=== PATIENT | female | born 1930 | race Caucasian/White ===

== ENCOUNTER 2016-10-27 08:38 | Outpatient (CLI) | payer MEDICARE, OTHER ==
--- NOTE | 2016-10-27 14:19 | DEXA Report ---
DEXA SCAN: 10/27/2016 CLINICAL INDICATION: Postmenopausal. TECHNIQUE: Dual energy x-ray absorptiometry (DXA) was performed on a Lumidigm system. Regions measured are the AP spine, femoral neck, and, if needed, forearm. COMPARISON: None. In accordance with the International Society for Clinical Densitometry (ISCD) guidelines, data from previous exams may be reanalyzed using current recommendations and techniques. This is done to allow a more accurate basis for comparison with the current study. FINDINGS: The data for the lumbar spine is as follows: REGION BMD (g/cm/cm) T-SCORE Z-SCORE L1 1.250 1.0 3.4 L2 1.436 2.0 4.4 L3 1.412 1.8 4.2 L4 1.405 1.7 4.1 TOTAL 1.381 1.7 4.1 NOTE: All evaluable vertebrae are used for classification. The data for the hip is as follows: REGION BMD (g/cm/cm) T-SCORE Z-SCORE Neck 0.719 -2.3 0.5 TOTAL 0.833 -1.4 1.3 NOTE: The femoral neck or total proximal femur, whichever is lowest, is used for classification. * Denotes significant change at the 95% confidence level. Denotes dissimilar scan types or analysis methods. IMPRESSION: THE WHO CLASSIFICATION BASED ON THE INTERNATIONAL REFERENCE STANDARD IS OSTEOPENIA. THE FRACTURE RISK IS INCREASED. RECOMMENDATION: Patients with diagnosis of osteoporosis or osteopenia should have regular bone mineral density assessment. For those eligible for Medicare, routine testing is allowed once every 2 years. Testing frequency can be increased for patients who have rapidly progressing disease or for those who are receiving medical therapy to restore bone mass. COMMENT: World Health Organization (WHO) definitions for osteoporosis and osteopenia: NORMAL BMD: T-score at -1.0 or higher, fracture risk is low. OSTEOPENIA BMD: T-score between -1.0 and -2.5, fracture risk is increased. OSTEOPOROSIS BMD: T-score at -2.5 or lower, fracture risk high. National Osteoporosis Foundation recommends: 1. Obtain adequate dietary calcium (at least 1200 mg per day) and vitamin D (400 -800 international units per day). 2. Participate, as appropriate, in regular weightbearing and muscle- strengthening exercise. 3. Avoid tobacco use and reduce alcohol and caffeine intake. 4. For more detailed information see the website at www.NOF.org. MTDD
== END 2016-10-27 08:39 | disposition home or self-care (01) ==
LOC: DI 08:38
PROVIDERS: ATTEND Internal Medicine
DX: M85.88 Other specified disorders of bone density and structure, other site (principal)
CPT/HCPCS: 77080

== ENCOUNTER 2016-10-27 09:15 | Outpatient (CLI) | payer MEDICARE, OTHER ==
--- NOTE | 2016-10-29 12:45 | Mammography Report ---
DIGITAL SCREENING MAMMOGRAM: 10/27/2016 CLINICAL INDICATION: An 86-year-old for screening. COMPARISON: 10/2015, 07/2010, 02/2009, 08/2007. TECHNIQUE: Routine CC and MLO projections were obtained of the breasts. FINDINGS: The breasts again demonstrate scattered fibroglandular densities bilaterally. Coarse and punctate, typically benign calcifications are present. No suspicious masses, clustered microcalcific ations, or regions of architectural distortion are identified. IMPRESSION: BENIGN FINDINGS. RECOMMENDATION: Routine annual screening unless otherwise clinically indicated. BI-RADS category 2, benign findings. STANDARD QUALIFYING STATEMENTS 1. This examination was reviewed with the aid of Computer-Aided Detection (CAD). 2. A negative or benign imaging report should not delay biopsy if clinically suspicious findings are present. Consider surgical consultation if warranted. More than 5% of cancers are not identified by i maging. 3. Dense breasts may obscure an underlying neoplasm. :9 JOB #: [id number] EXT JOB #:[id number]
== END 2016-10-27 09:16 | disposition home or self-care (01) ==
LOC: DI 09:15
PROVIDERS: ATTEND Internal Medicine
DX: Z12.31 Encounter for screening mammogram for malignant neoplasm of breast (principal)
CPT/HCPCS: 77067

== ENCOUNTER 2017-11-24 17:29 | Emergency (ER) | payer MEDICARE, OTHER ==
--- NOTE | 2017-11-24 19:07 | XRAY Report ---
Procedure Date: 11/24/2017 Accession Number: [id number] / [id number] Procedure: XR - Ankle 3 View LT CPT Code: FULL RESULT: EXAM: LEFT ANKLE RADIOGRAPHY EXAM DATE: 11/24/2017 06:40 PM. CLINICAL HISTORY: Left ankle injury. COMPARISON: None. TECHNIQUE: 3 views. FINDINGS: Bones: Decreased bone mineralization. No fracture. Joints: No dislocation. Soft Tissues: Vascular atherosclerotic calcifications. Radiopaque/metallic linear foreign body in the plantar medial forefoot measures 1.7 cm in length. Lateral ankle swelling IMPRESSION: 1. No fracture or dislocation 2. Decreased bone mineralization 3. Lateral ankle swelling 4. Metallic linear foreign body/needle in the medial plantar forefoot. Clinical correlation RADIA
--- NOTE | 2017-11-24 20:27 | ED Physician Documentation ---
PD HPI LOWER EXT INJURY - Stated complaint Stated Complaint: GLF/L ANKLE PX - Chief complaint Chief Complaint: Ext Problem - History obtained from History obtained from: Patient - History of Present Illness PD HPI LOW EXT INJURY LOCATION: Left, Ankle Type of injury: Other (unknown (patient can't recall due to dementia, and event was unwitnessed)) Where injury occurred: Home Timing - onset: Last night (19:30) Timing - details: Abrupt onset Improved by: Rest Worsened by: Moving, Palpating Associated symptoms: Swelling Recently seen: Clinic - Additional information Additional information: found by family in hallway of her home last night, presumably fell. She has had left ankle swelling and pain since then. No AMS per family. Evaluated by PMD today and was instructed to go to ED for xrays and evaluation. Review of Systems Musculoskeletal: reports: Joint pain, Joint swelling, Pain with weight bearing Neurologic: reports: Confused (basline, per family). denies: Generalized weakness, Focal weakness, Numbness, Headache, LOC PD PAST MEDICAL HISTORY - Past Medical History Cardiovascular: Hypertension - Past Surgical History Ortho: Hip replacement HEENT: Cataracts - Present Medications Home Medications: Ambulatory Orders Medication Instructions Recorded Confirmed Doxazosin Mesylate 10/20/14 10/20/14 Estrogens, Conjugated [Premarin] 10/20/14 10/20/14 Potassium Chloride [Klor-Con 10] 10/20/14 10/20/14 - Allergies Allergies/Adverse Reactions: Allergies Allergy/AdvReac Type Severity Reaction Status Date / Time No Known Drug Allergies Allergy Verified 10/20/14 21:15 - Social History Does the pt smoke?: No Smoking Status: Never smoker Does the pt drink ETOH?: Yes Does the pt have substance abuse?: No - Immunizations Immunizations are current?: Yes - POLST Patient has POLST: Yes PD ED PE NORMAL - Vitals Vital signs reviewed: Yes - General General: No acute distress, Well developed/nourished, Other (awake, alert, disoriented to time, place) - HEENT HEENT: PERRL, EOMI - Neuro Neuro: No motor deficit, No sensory deficit Eye Opening: Spontaneous Motor: Obeys Commands Verbal: Confused GCS Score: 14 PD ED PE EXPANDED - Extremities Extremities: Tenderness, Limited ROM, Swelling, Left ankle, Other (there is swelling and mild tenderness to palpation left ankle, lateral aspect. No obvious deformity. Limited ROM left ankle due to pain. There is no tenderenss to palpation of the foot and no laceration, abrasion, or puncture wound seen) Results - Vitals Vitals: Vital Signs - 24 hr 11/24/17 11/24/17 18:01 20:55 Temperature 37.6 C H Heart Rate 73 77 Respiratory 14 16 Rate Blood Pressure 140/80 H 135/73 H O2 Saturation 97 100 Oxygen O2 Source Room air - Rads (name of study) left ankle xrays Radiology: Prelim report reviewed, See rad report PD MEDICAL DECISION MAKING - ED course Complexity details: reviewed results, re-evaluated patient, considered differential, d/w patient, d/w family ED course: No evidence of acute bony injury on xrays. FB noted, but there is no tenderness of the foot nor visualized injury such as puncture wound that would correlate with this being an acute finding. I discussed the finding with patient and family and explained that no specific treatment necessary for the FB unless and until symptoms/signs appear (such as pain of the foot with or without weight- bearing, swelling, redness). - Sepsis Event Vital Signs: Vital Signs - 24 hr 11/24/17 11/24/17 18:01 20:55 Temperature 37.6 C H Heart Rate 73 77 Respiratory 14 16 Rate Blood Pressure 140/80 H 135/73 H O2 Saturation 97 100 Oxygen O2 Source Room air Departure - Departure Disposition: 01 Home, Self Care Clinical Impression: Foreign body (FB) in soft tissue Left ankle sprain Qualifiers: Encounter type: initial encounter Involved ligament of ankle: unspecified ligament Qualified Code(s): S93.402A - Sprain of unspecified ligament of left ankle, initial encounter Condition: Good Instructions: ED Sprain Ankle W X Ray, ED Foreign Body Soft Tissue Follow-Up: Samuel Manzanares MD [Primary Care Provider] - Comments: Minimize weight-bearing on your left foot/ankle for the next 4-5 days; do this by using the splint and either a walker or cane. You can weight-bear as tolerated, but, again, I recommend you minimize this for at least the next several days. Discharge Date/Time: 11/24/17 20:55
[2017-11-24 21:14] VITALS: BP 135/73
== END 2017-11-24 20:55 | disposition home or self-care (01) ==
LOC: ED 17:29
DX: S93.402A Sprain of unspecified ligament of left ankle, initial encounter (principal); M79.5 Residual foreign body in soft tissue; F03.90 Unspecified dementia, unspecified severity, without behavioral disturbance, psychotic disturbance, mood disturbance, and anxiety
CPT/HCPCS: 99282; 99283

== ENCOUNTER 2017-12-17 09:47 | Outpatient (CLI) | payer MEDICARE, OTHER ==
--- NOTE | 2017-12-18 14:57 | Mammography Report ---
Procedure Date: 12/17/2017 Accession Number: [id number] / [id number] Procedure: MGN - Screening Mammo Dig Bilat CPT Code: FULL RESULT: EXAM: Screening Mammo Dig Bilat DATE: 12/17/2017 10:30 AM CLINICAL HISTORY: 87-year-old female with history of late childbearing presents for screening mammogram. TECHNIQUE: Bilateral CC and MLO views were obtained. COMPARISON: 10/27/2016, 11/12/2015, 07/25/2010, 02/26/2009. FINDINGS: The breasts demonstrate scattered fibroglandular densities bilaterally. Typically benign vascular calcifications are seen in both breasts. No suspicious masses, clustered microcalcifications, or regions of architectural distortion are identified. IMPRESSION: Benign findings RECOMMENDATION: Routine annual screening unless otherwise clinically indicated. BIRADS CATEGORY 2: Benign findings STANDARD QUALIFYING STATEMENTS: 1. This examination was reviewed with the aid of Computer-Aided Detection (CAD). 2. A negative or benign imaging report should not delay biopsy if clinically suspicious findings are present. Consider surgical consultation if warrented. More than 5% of cancers are not identified by imaging. 3. Dense breasts may obscure an underlying neoplasm.
== END 2017-12-17 09:48 | disposition home or self-care (01) ==
LOC: DI.N 09:47
PROVIDERS: ATTEND Internal Medicine
DX: Z12.31 Encounter for screening mammogram for malignant neoplasm of breast (principal)
CPT/HCPCS: 77067

== ENCOUNTER 2017-12-17 09:56 | Outpatient (CLI) | payer MEDICARE, OTHER ==
--- NOTE | 2017-12-17 11:04 | XRAY Report ---
Procedure Date: 12/17/2017 Accession Number: [id number] / [id number] Procedure: XRN - Lumbar Spine 2 View CPT Code: FULL RESULT: EXAM: Lumbar Spine 2 View DATE: 12/17/2017 10:31 AM CLINICAL HISTORY: BACKACHE COMPARISON: 05/24/2008. TECHNIQUE: 2 views. FINDINGS: Alignment: Advanced degenerative changes with interval exacerbation of lumbar S-shaped scoliosis levoconvex at L2 dextroconvex at L3/4. Mild retrolisthesis of L2 on L3. Bones: Five [id number]-mhoqmhx lumbar vertebral bodies are present. No fractures or bone lesions. Disks: Advanced multilevel degenerative changes most pronounced at L2-3 and L3-4. Facets: Advanced degenerative changes. Sacroiliac Joints: Symmetric. Soft Tissues: Normal. The visualized bowel gas pattern is normal. Right femoral acetabular joint replacement is noted. IMPRESSION: Interval worsening of degenerative changes with exacerbation of S-shaped lumbar scoliosis. RADIA
== END 2017-12-17 09:57 | disposition home or self-care (01) ==
LOC: DI.N 09:56
PROVIDERS: ATTEND Internal Medicine
DX: M54.9 Dorsalgia, unspecified (principal); M41.86 Other forms of scoliosis, lumbar region
CPT/HCPCS: 72100

== ENCOUNTER 2017-12-18 08:18 | Outpatient (CLI) | payer MEDICARE, OTHER ==
--- NOTE | 2017-12-18 10:47 | Ultrasound Report ---
Procedure Date: 12/18/2017 Accession Number: [id number] / [id number] Procedure: US - Retroperitoneal Limited CPT Code: FULL RESULT: EXAM: Retroperitoneal Limited DATE: 12/18/2017 9:18 AM CLINICAL HISTORY: ESSENTIAL PRIMARY HYPERTENSION COMPARISON: Ultrasound 12/09/2014. TECHNIQUE: Real-time sonographic imaging of retroperitoneal vascular structures, including color-flow, was performed by the gate technician. Multiple consumer sales representative static images were saved for review. FINDINGS: Aorta: The abdominal aorta was adequately visualized. No evidence for abdominal aortic aneurysm. The aorta does demonstrate atherosclerotic change and measures up to 2.3 cm in sagittal plane in the upper abdomen,1.8 x 1.7 cm in the midabdomen and 1.6 x 1.7 cm in the distal abdomen. Iliac Vessels: The visualized proximal common iliac arteries are normal in caliber. Other: None. IMPRESSION: Aortic atherosclerosis. No abdominal aortic aneurysm. Per Medicare criteria, this female patient with a negative screening ultrasound in 2014 and now 2017 does not require further screening abdominal aortic aneurysm ultrasound examinations as long as she remains asymptomatic. RADIA
== END 2017-12-18 08:19 | disposition home or self-care (01) ==
LOC: DI 08:18
PROVIDERS: ATTEND Internal Medicine
DX: I70.0 Atherosclerosis of aorta (principal); I10 Essential (primary) hypertension
CPT/HCPCS: 76775

== ENCOUNTER 2018-09-26 10:12 | Inpatient (IN) | payer MEDICARE, OTHER ==
--- NOTE | 2018-09-26 10:36 | ED Physician Documentation ---
PD HPI HEAD INJURY - Stated complaint Stated Complaint: GLF - Chief complaint Chief Complaint: Trauma Hd/Nk - History obtained from History obtained from: Patient, Family - History of Present Illness Mechanism of head injury: Fell Where head injury occurred: Home Timing - onset: How many days ago (The and daughter along with the patient states she is had change in orientation and level of confusion starting about 3 days ago. She does have short-term memory consistent with dementia. However she started to having confusion and incomplete sentence formation in the last few days. She was noted to have poor balance and difficulty getting around on her walker and has fallen 5 or 6 times in the last 2 days. She did have injury to the back of the head as well as the right hand the thoracic back in the left thigh. She had not had any head injury prior to the onset of the confusion. She has had similar episodes in the past with illness or bladder infections. She did not have any fever cough vomiting or diarrhea.) Location of injury: Back Quality of pain: Aching Associated symptoms: AMS (but was having that prior to the fall as well.). No: LOC, Nausea / vomiting Symptoms worsen with: Palpation Contributing factors: No: Anticoagulated Similar symptoms before: Has not had sx before Recently seen: Not recently seen Review of Systems Unable to obtain: Dementia, Other (info from and daughter as well.) Constitutional: denies: Fever, Chills Nose: denies: Rhinorrhea / runny nose, Congestion Throat: denies: Sore throat Cardiac: denies: Chest pain / pressure, Palpitations, Pedal edema, Calf pain Respiratory: denies: Dyspnea, Cough, Wheezing : reports: Incontinent Skin: denies: Rash Musculoskeletal: reports: Extremity pain (right hand and left thigh/knee after fall yesterday) Neurologic: reports: Generalized weakness. denies: Focal weakness, Numbness, Near syncope Endocrine: denies: Polyuria, Weight loss PD PAST MEDICAL HISTORY - Past Medical History Cardiovascular: Hypertension Neuro: Dementia GI: None - Past Surgical History Ortho: Hip replacement HEENT: Cataracts - Present Medications Home Medications: Ambulatory Orders Medication Instructions Recorded Confirmed Doxazosin Mesylate 10/20/14 10/20/14 Estrogens, Conjugated [Premarin] 10/20/14 10/20/14 Alendronate [Fosamax] 09/26/18 Aspirin 09/26/18 Atenolol 09/26/18 Niacin [Niacin ER] 09/26/18 - Allergies Allergies/Adverse Reactions: Allergies Allergy/AdvReac Type Severity Reaction Status Date / Time No Known Drug Allergies Allergy Verified 09/26/18 10:35 - Social History Does the pt smoke?: No Smoking Status: Never smoker Does the pt drink ETOH?: Yes ETOH Use: Wine Does the pt have substance abuse?: No - Family History Family history: reports: Non contributory - Immunizations Immunizations are current?: Yes - POLST Patient has POLST: Yes PD ED PE NORMAL - Vitals Vital signs reviewed: Yes - General General: No acute distress, Well developed/nourished, Other (oriented to person; poor short term memory. ) - HEENT HEENT: Other (Back of the head on the right occiput shows a local contusion with bruising. There is no laceration. She is minimal local tenderness. The neck is nontender with a good range of motion.) - Neck Neck: Supple, no meningeal sign, No bony TTP, No adenopathy - Cardiac Cardiac: RRR, No murmur - Respiratory Respiratory: Clear bilaterally - Abdomen Abdomen: Soft, Non tender, Non distended - Back Back: No CVA TTP, Other (She is tender in the lower thoracic back. No obvious deformity. She is able to sit up and forward on her own motor control. 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 The forearm and elbow have good range of motion. The left knee is slightly tender along the medial aspect. There is some pain also noted with impaction or rotation of the hip area. No obvious deformity.) - Neuro Neuro: nutter up 2-12 intact, No motor deficit, No sensory deficit. No: Alert and oriented X 3 (to person and also with poor short term memory), Normal speech (articulate but incomplete thought/sentence structure. ) Eye Opening: Spontaneous Motor: Obeys Commands Verbal: Confused GCS Score: 14 Results - Vitals Vitals: Vital Signs - 24 hr 09/26/18 10:14 Temperature 37.4 C Heart Rate 94 Respiratory 18 Rate Blood Pressure 150/100 H O2 Saturation 97 Oxygen O2 Source Room air - Labs Labs: Laboratory Tests 09/26/18 09/26/18 09/26/18 11:10 11:10 11:57 WBC 7.6 RBC 3.95 L Hgb 11.9 L Hct 35.6 L MCV 90.1 MCH 30.2 MCHC 33.5 RDW 14.7 Plt Count 148 MPV 9.3 Neut # (Auto) 6.6 Lymph # (Auto) 0.4 L [place] # (Auto) 0.5 Eos # (Auto) 0.1 Baso # (Auto) 0.0 Absolute Nucleated RBC 0.00 Nucleated RBC % 0.0 Sodium 132 L Potassium 3.2 L Chloride 94 L Carbon Dioxide 25 Anion Gap 13.0 BUN 11 Creatinine 0.7 Estimated GFR (MDRD) 79 L Glucose 112 H Lactic Acid 0.9 Calcium 9.2 Magnesium 1.2 L Total Bilirubin 0.7 AST 28 ALT 17 Alkaline Phosphatase 58 Total Protein 7.1 Albumin 3.5 Globulin 3.6 Albumin/Globulin Ratio 1.0 Lipase 36 Urine Color Urine Clarity Urine pH Ur Specific [place] Urine Protein Urine Glucose (UA) Urine Ketones Urine Occult Blood Urine Nitrite Urine Bilirubin Urine Urobilinogen Ur Leukocyte Esterase Urine RBC Urine WBC Ur Epithelial Cells Ur Squamous Epith Cells Urine Bacteria Ur Microscopic Review Urine Culture Comments 09/26/18 12:15 WBC RBC Hgb Hct MCV MCH MCHC RDW Plt Count MPV Neut # (Auto) Lymph # (Auto) [place] # (Auto) Eos # (Auto) Baso # (Auto) Absolute Nucleated RBC Nucleated RBC % Sodium Potassium Chloride Carbon Dioxide Anion Gap BUN Creatinine Estimated GFR (MDRD) Glucose Lactic Acid Calcium Magnesium Total Bilirubin AST ALT Alkaline Phosphatase Total Protein Albumin Globulin Albumin/Globulin Ratio Lipase Urine Color YELLOW Urine Clarity CLEAR Urine pH 7.5 Ur Specific [place] 1.015 Urine Protein 100 H Urine Glucose (UA) NEGATIVE Urine Ketones TRACE Urine Occult Blood MODERATE H Urine Nitrite NEGATIVE Urine Bilirubin NEGATIVE Urine Urobilinogen 0.2 (NORMAL) Ur Leukocyte Esterase NEGATIVE Urine RBC 6-10 H Urine WBC 0-3 Ur Epithelial Cells FEW Transitional Ur Squamous Epith Cells RARE Squamous Urine Bacteria Rare Ur Microscopic Review INDICATED Urine Culture Comments NOT INDICATED - Rads (name of study) head CT Radiology: Prelim report reviewed (No ICH nor acute process), See rad report chest CT Radiology: Prelim report reviewed (prior T12 wedge defromity. No acute process of spine. There is Groundglass appearance in the right lower lobe. This could represent atelectasis versus early consolidation.), See rad report hand xray Radiology: Prelim report reviewed, EMP read contemporaneously (rthritic changes, no fractures), See rad report left femur Radiology: Prelim report reviewed, EMP read contemporaneously (no noted fractures; arthritic changes noted. ), See rad report PD MEDICAL DECISION MAKING - ED course Complexity details: re-evaluated patient, considered differential (Consider metabolic causes as well as infectious causes causing her weakness and falls as well as her disorientation. Also consider central neurologic such as stroke or bleed. She had the symptoms prior to the onset of falling and were causing of falls. However CT will be done to ensure there is no subsequent intracranial hemorrhage. She is slightly hypertensive on arrival so a focal bleed would be a issue as well. CT scan will be done. Unfortunately I will fully exclude a small cerebellar infarct or such an MRI may be subsequently required. Does not sound like large vessel occlusion. She will be given some IV fluids to help with hydration as well.), d/w patient, d/w family Departure - Departure Disposition: ED Place in Observation Clinical Impression: Balance disorder, Falling episodes, Hypokalemia Mental status alteration Qualifiers: Altered mental status type: disorientation Qualified Code(s): R41.0 - Disorientation, unspecified Condition: Stable Record reviewed to determine appropriate education?: Yes
[2018-09-26] MEDS ORDERED: SODIUM CHLORIDE 0.9% 1,000 ML IV ONE (10:56)
[2018-09-26 11:19] LABS: BASOPHILS % (AUTO) 0.3 %; EOSINOPHILS # (AUTO) 0.1 10^3/uL (0.0-0.7); EOSINOPHILS % (AUTO) 1.6 %; HGB - HEMOGLOBIN 11.9 g/dL (12.0-16.0); LYMPHOCYTES # (AUTO) 0.4 10^3/uL (1.5-3.5); LYMPHOCYTES % (AUTO) 5.2 %; MEAN CORPUSCULAR HEMOGLOBIN 30.2 pg (27.0-31.0); MEAN CORPUSCULAR HGB CONC 33.5 g/dL (32.0-36.0); MEAN CORPUSCULAR VOLUME 90.1 fL (81.0-99.0); MEAN PLATELET VOLUME 9.3 fL (7.9-10.8); MONOCYTES # (AUTO) 0.5 10^3/uL (0.0-1.0); MONOCYTES % (AUTO) 6.4 %; NEUTROPHILS # (AUTO) 6.6 10^3/uL (1.5-6.6); NEUTROPHILS % (AUTO) 86.5 %; PLT - PLATELET COUNT 148 10^3/uL (130-450); RED BLOOD COUNT 3.95 10^6/uL (4.20-5.40); RED CELL DISTRIBUTION WIDTH 14.7 % (12.0-15.0); WHITE BLOOD COUNT 7.6 x10^3/uL (4.8-10.8)
[2018-09-26 11:34] LABS: ALBUMIN 3.5 g/dL (3.2-5.5); BILIRUBIN,TOTAL 0.7 mg/dL (0.2-1.0); CALCIUM 9.2 mg/dL (8.5-10.3); CREATININE 0.7 mg/dL (0.4-1.0); MAGNESIUM 1.2 mg/dL (1.7-2.8); TOTAL PROTEIN 7.1 g/dL (6.7-8.2)
--- NOTE | 2018-09-26 12:06 | CT Report ---
Reason: confused for few days; also fall with head contusi Procedure Date: 09/26/2018 Accession Number: [id number] / [id number] Procedure: CT - HEAD WO CPT Code: FULL RESULT: EXAM: CT HEAD EXAM DATE: 09/26/2018 11:27 AM. CLINICAL HISTORY: Fall. Hit head. Confusion. COMPARISON: HEAD W/O 01/17/2013 1:13 PM. TECHNIQUE: Multiaxial CT images were obtained from the foramen magnum to the vertex. Reformats: Sagittal and coronal. IV contrast: None. In accordance with CT protocol optimization, one or more of the following dose reduction techniques were utilized for this exam: automated exposure control, adjustment of mA and/or KV based on patient size, or use of iterative reconstructive technique. FINDINGS: Parenchyma: Parenchymal volume loss with periventricular regions of low attenuation. No definitive evidence of an acute vascular insult or acute parenchymal hemorrhage. No midline shift. No mass-effect. Extraaxial Spaces: Extra-axial spaces are prominent. No subdural or epidural collections identified. Ventricles: Normal in size and position. Sinuses and Orbits: Imaged paranasal sinuses, orbits, and mastoids show no significant abnormality. Bones: No evidence of fracture or calvarial defect. Other: Changes are seen from bilateral lens surgery. Vascular calcifications are noted. Right parietal soft tissue and scalp edema. IMPRESSION: 1. No acute intracranial abnormality is identified. 2. No fracture. 3. Right parietal soft tissue and scalp edema. 4. Parenchymal volume loss and chronic white matter changes. RADIA
--- NOTE | 2018-09-26 12:26 | CT Report ---
Reason: fall with lower thoracic back pain Procedure Date: 09/26/2018 Accession Number: [id number] / [id number] Procedure: CT - CHEST WO CPT Code: FULL RESULT: EXAM: CT CHEST EXAM DATE: 09/26/2018 11:31 AM. CLINICAL HISTORY: Fall. Confusion. COMPARISONS: Chest x-ray from 01/20/2006. TECHNIQUE: Routine helical CT imaging was performed through the chest. IV contrast: None. Reconstructions: Coronal and sagittal. In accordance with CT protocol optimization, one or more of the following dose reduction techniques were utilized for this exam: automated exposure control, adjustment of mA and/or KV based on patient size, or use of iterative reconstructive technique. FINDINGS: Lungs/Pleura: Left lower lobe ground-glass opacity. No endobronchial obstruction. No pneumothorax. No pleural effusions. Basilar scarring. No vascular congestion. Mediastinum: Cardiomegaly. Coronary artery atherosclerosis. Thoracic aortic atherosclerosis. Maximal size of the mid ascending aorta measures 3.9 cm. No intramural or mediastinal hematoma. No enlarged mediastinal or hilar lymph nodes. Within the right lobe of the thyroid gland is a 5 mm low-attenuation nodule. Moderate hiatal hernia. Bones: Degenerative changes of the thoracic spine. Chronic wedging of T12. No acute osseous abnormalities. Degenerative changes of both shoulders. Visualized Abdomen: Included portions of the liver, spleen, adrenals, pancreas and kidneys are unremarkable. Numerous noncalcified gallstones are seen in the visualized gallbladder. Abdominal aortic atherosclerosis. Other: Subcutaneous edema. IMPRESSION: 1. Left lower lobe ground-glass opacity, possibly early consolidation superimposed upon basilar scar and atelectasis. 2. Cardiomegaly. Coronary artery and thoracic aortic atherosclerosis. No aneurysm. No mediastinal hematoma. 3. No thoracic adenopathy. 4. Cholelithiasis. 5. Chronic wedging of T12. No acute osseous abnormalities are identified. RADIA
[2018-09-26 12:32] LABS: BILIRUBIN,URINE NEGATIVE (NEGATIVE); GLUCOSE, URINE (UA) NEGATIVE (NEGATIVE); KETONES,URINE (UA) TRACE mg/dL (NEGATIVE); LEUKOCYTE ESTERASE, URINE NEGATIVE (NEGATIVE); NITRITE,URINE NEGATIVE (NEGATIVE); OCCULT BLOOD,URINE MODERATE (NEGATIVE); PH,URINE 7.5 PH (5.0-7.5); PROTEIN,URINE 100 mg/dL (NEGATIVE); UROBILINOGEN,URINE 0.2 (NORMAL) E.U./dL (NORMAL)
[2018-09-26 12:33] LABS: CLARITY,URINE CLEAR (CLEAR)
[2018-09-26 12:51] LABS: BACTERIA,URINE Rare /HPF (None Seen); EPITHELIAL CELLS,UR FEW Transitional /HPF (<= Few); SQUAMOUS EPITHELIAL CELL,UR RARE Squamous (<= Few)
[2018-09-26] MEDS ORDERED: POTASSIUM CHLOR 10 MEQ/100 ML 10 MEQ/100 ML BAG IV ONE (13:16)
[2018-09-26] MEDS ORDERED: POTASSIUM CHLORIDE 20 MEQ TABLET PO STA (13:16)
[2018-09-26] MEDS ORDERED: ACETAMINOPHEN 325 MG TABLET PO PRN (13:18)
[2018-09-26] MEDS ORDERED: TEMAZEPAM 15 MG CAPSULE PO PRN (13:18)
[2018-09-26] MEDS ORDERED: PROCHLORPERAZINE 10 MG/2 ML VIAL IVP PRN (13:18)
--- NOTE | 2018-09-26 13:27 | HISTORY & PHYSICAL EXAMINATION ---
PMH/PSH - Past Medical History Cardiovascular: positive: Hypertension Neuro: positive: Dementia GI: positive: None - Past Surgical History Ortho: positive: Hip replacement HEENT: positive: Cataracts Social & Family Hx - Social History Does the pt smoke?: No Smoking Status: Never smoker Does the pt drink ETOH?: Yes ETOH Use: Wine Does the pt have substance abuse?: No - POLST Patient has POLST: Yes Meds/Allgy - Home Medications Home Medications: Ambulatory Orders Medication Instructions Recorded Confirmed Doxazosin Mesylate 10/20/14 10/20/14 Estrogens, Conjugated [Premarin] 10/20/14 10/20/14 Alendronate [Fosamax] 09/26/18 Aspirin 09/26/18 Atenolol 09/26/18 Niacin [Niacin ER] 09/26/18 - Allergies Allergies/Adverse Reactions: Allergies Allergy/AdvReac Type Severity Reaction Status Date / Time No Known Drug Allergies Allergy Verified 09/26/18 10:35 Exam - Vital Signs Vital Signs: Vital Signs x48h Temp Pulse Resp BP Pulse Ox 09/26/18 10:14 37.4 C 94 18 150/100 H 97 Results - Lab Results Fish Bones: 09/26/18 11:10 09/26/18 11:10 Other Lab Results: Lab Results x24hrs 09/26/18 09/26/18 09/26/18 Range/Units 12:15 11:57 11:10 WBC (4.8-10.8) x10^3/uL RBC (4.20-5.40) 10^6/uL Hgb (12.0-16.0) g/dL Hct (37.0-47.0) % MCV (81.0-99.0) fL MCH (27.0-31.0) pg MCHC (32.0-36.0) g/dL RDW (12.0-15.0) % Plt Count (130-450) 10^3/uL MPV (7.9-10.8) fL Neut # (Auto) (1.5-6.6) 10^3/uL Lymph # (Auto) (1.5-3.5) 10^3/uL [place] # (Auto) (0.0-1.0) 10^3/uL Eos # (Auto) (0.0-0.7) 10^3/uL Baso # (Auto) (0.0-0.1) 10^3/uL Absolute Nucleated RBC x10^3/uL Nucleated RBC % /100WBC Sodium 132 L (135-145) mmol/L Potassium 3.2 L (3.5-5.0) mmol/L Chloride 94 L (101-111) mmol/L Carbon Dioxide 25 (21-32) mmol/L Anion Gap 13.0 (6-13) BUN 11 (6-20) mg/dL Creatinine 0.7 (0.4-1.0) mg/dL Estimated GFR (MDRD) 79 L (>89) Glucose 112 H (70-100) mg/dL Lactic Acid 0.9 (0.5-2.2) mmol/L Calcium 9.2 (8.5-10.3) mg/dL Magnesium 1.2 L (1.7-2.8) mg/dL Total Bilirubin 0.7 (0.2-1.0) mg/dL AST 28 (10-42) IU/L ALT 17 (10-60) IU/L Alkaline Phosphatase 58 (42-121) IU/L Total Protein 7.1 (6.7-8.2) g/dL Albumin 3.5 (3.2-5.5) g/dL Globulin 3.6 (2.1-4.2) g/dL Albumin/Globulin Ratio 1.0 (1.0-2.2) Lipase 36 (22-51) U/L Urine Color YELLOW Urine Clarity CLEAR (CLEAR) Urine pH 7.5 (5.0-7.5) PH Ur Specific [place] 1.015 (1.002-1.030) Urine Protein 100 H (NEGATIVE) mg/dL Urine Glucose (UA) NEGATIVE (NEGATIVE) mg/dL Urine Ketones TRACE (NEGATIVE) mg/dL Urine Occult Blood MODERATE H (NEGATIVE) Urine Nitrite NEGATIVE (NEGATIVE) Urine Bilirubin NEGATIVE (NEGATIVE) Urine Urobilinogen 0.2 (NORMAL) (NORMAL) E.U./dL Ur Leukocyte Esterase NEGATIVE (NEGATIVE) Urine RBC 6-10 H (0-5) /HPF Urine WBC 0-3 (0-5) /HPF Ur Epithelial Cells FEW Transitional (<= Few) /HPF Ur Squamous Epith Cells RARE Squamous (<= Few) Urine Bacteria Rare (None Seen) /HPF Ur Microscopic Review INDICATED Urine Culture Comments NOT INDICATED 09/26/18 Range/Units 11:10 WBC 7.6 (4.8-10.8) x10^3/uL RBC 3.95 L (4.20-5.40) 10^6/uL Hgb 11.9 L (12.0-16.0) g/dL Hct 35.6 L (37.0-47.0) % MCV 90.1 (81.0-99.0) fL MCH 30.2 (27.0-31.0) pg MCHC 33.5 (32.0-36.0) g/dL RDW 14.7 (12.0-15.0) % Plt Count 148 (130-450) 10^3/uL MPV 9.3 (7.9-10.8) fL Neut # (Auto) 6.6 (1.5-6.6) 10^3/uL Lymph # (Auto) 0.4 L (1.5-3.5) 10^3/uL [place] # (Auto) 0.5 (0.0-1.0) 10^3/uL Eos # (Auto) 0.1 (0.0-0.7) 10^3/uL Baso # (Auto) 0.0 (0.0-0.1) 10^3/uL Absolute Nucleated RBC 0.00 x10^3/uL Nucleated RBC % 0.0 /100WBC Sodium (135-145) mmol/L Potassium (3.5-5.0) mmol/L Chloride (101-111) mmol/L Carbon Dioxide (21-32) mmol/L Anion Gap (6-13) BUN (6-20) mg/dL Creatinine (0.4-1.0) mg/dL Estimated GFR (MDRD) (>89) Glucose (70-100) mg/dL Lactic Acid (0.5-2.2) mmol/L Calcium (8.5-10.3) mg/dL Magnesium (1.7-2.8) mg/dL Total Bilirubin (0.2-1.0) mg/dL AST (10-42) IU/L ALT (10-60) IU/L Alkaline Phosphatase (42-121) IU/L Total Protein (6.7-8.2) g/dL Albumin (3.2-5.5) g/dL Globulin (2.1-4.2) g/dL Albumin/Globulin Ratio (1.0-2.2) Lipase (22-51) U/L Urine Color Urine Clarity (CLEAR) Urine pH (5.0-7.5) PH Ur Specific [place] (1.002-1.030) Urine Protein (NEGATIVE) mg/dL Urine Glucose (UA) (NEGATIVE) mg/dL Urine Ketones (NEGATIVE) mg/dL Urine Occult Blood (NEGATIVE) Urine Nitrite (NEGATIVE) Urine Bilirubin (NEGATIVE) Urine Urobilinogen (NORMAL) E.U./dL Ur Leukocyte Esterase (NEGATIVE) Urine RBC (0-5) /HPF Urine WBC (0-5) /HPF Ur Epithelial Cells (<= Few) /HPF Ur Squamous Epith Cells (<= Few) Urine Bacteria (None Seen) /HPF Ur Microscopic Review Urine Culture Comments
--- NOTE | 2018-09-26 13:34 | HISTORY & PHYSICAL EXAMINATION ---
Chief Complaint - Chief Complaint Chief Complaint: Gait/memory issues.Status post fall with a scalp hematoma; history of falls Stroke/TIA/Neuro Template - Admitted From Admitted from: ED - History Obtained From Records Reviewed: RN notes reviewed History obtained from: Patient, Family Exam limitations: Clinical condition - History of Present Illness HPI Comment/Other: This is a pleasantly demented 87-year-old female with a history of dementia of unknown type, hypertension, cataracts, who apparently has been falling down for the last 2 to 3 days with associated memory impairment disorientation gait and balance issues. She had a total of 6 falls in the last day or so for which subsequently produced a ground-level fall today with a scalp hematoma. CT of the head did not show any acute intracranial process and her labs were significant for electrolyte disturbance with preserved renal function and a hemoglobin of 11.9 with no overt bleeding disorders. There was a concern for possible suspected ischemic CVA however patient had no order for EKG or echocardiogram or CTA in the ED. Patient had a CT chest which showed left lower lobe consolidation versus atelectasis with evidence of cholelithiasis with chronic T12 wedge compression fracture along with coronary and thoracic atherosclerosis. Patient does admit to drinking wine on a daily basis. PMH/PSH - Past Medical History Cardiovascular: positive: Hypertension Neuro: positive: Dementia GI: positive: None - Past Surgical History Ortho: positive: Hip replacement HEENT: positive: Cataracts Social & Family Hx - Social History Does the pt smoke?: No Smoking Status: Never smoker Does the pt drink ETOH?: Yes ETOH Use: Wine Does the pt have substance abuse?: No - POLST Patient has POLST: Yes Meds/Allgy - Home Medications Home Medications: Ambulatory Orders Medication Instructions Recorded Confirmed Alendronate [Fosamax] 70 mg PO MO 09/26/18 09/26/18 Aspirin 81 mg PO DAILY 09/26/18 09/26/18 Atenolol 50 mg PO DAILY 09/26/18 09/26/18 Cholecalciferol (Vitamin D3) 2,000 unit PO DAILY 09/26/18 09/26/18 [Vitamin D3] Estrogens, Conjugated [Premarin] 0.625 mg PO DAILY 09/26/18 09/26/18 Niacin [Niacin ER] 500 mg PO DAILY 09/26/18 09/26/18 [place]-3 Fatty Acids/Fish Oil 1,000 mg PO DAILY 09/26/18 09/26/18 [[place]-3 Fish Oil 1,000 mg Sfgl] Rivastigmine [Exelon] 1 patch TD DAILY 09/26/18 09/26/18 traMADol [Ultram] 50 mg PO Q6H PRN 09/26/18 09/26/18 - Allergies Allergies/Adverse Reactions: Allergies Allergy/AdvReac Type Severity Reaction Status Date / Time No Known Drug Allergies Allergy Verified 09/26/18 10:35 Review of Systems - All Other Systems All Other Systems: reports: Reviewed and negative Prior Level of Functionality: Unknown baseline ambulatory status or functional capacity with home ADLs Exam - Vital Signs Vital Signs: Vital Signs x48h Temp Pulse Resp BP Pulse Ox 09/26/18 10:14 37.4 C 94 18 150/100 H 97 - Physical Exam General Appearance: positive: No acute distress, Alert, Anxious, Other (Patient is demented and agitated) Eyes Bilateral: positive: Normal inspection, PERRL, EOMI ENT: positive: ENT inspection nml, Pharynx nml, No signs of dehydration Neck: positive: Nml inspection, Thyroid nml, No JVD, Trachea midline. negative: Thyromegaly Respiratory: positive: Chest non-tender, No respiratory distress, Breath sounds nml Cardiovascular: positive: Regular rate & rhythm, No murmur, No gallop Peripheral Pulses: positive: 2+ Abdomen: positive: Non-tender, No organomegaly, Nml bowel sounds, No distention Extremities: positive: Non-tender, Full ROM, Nml appearance Neurologic/Psychiatric: positive: Disoriented to person, Disoriented to place, Disoriented to time, Other (Patient has dementia with behavioral disturbance and clear agitation noted with no psychomotor retardation. Difficult to assess full neurologic/psychiatric exam) Results - Lab Results Lab results reviewed: Yes Fish Bones: 09/26/18 11:10 09/26/18 11:10 Other Lab Results: Lab Results x24hrs 09/26/18 09/26/18 09/26/18 Range/Units 12:15 11:57 11:10 WBC (4.8-10.8) x10^3/uL RBC (4.20-5.40) 10^6/uL Hgb (12.0-16.0) g/dL Hct (37.0-47.0) % MCV (81.0-99.0) fL MCH (27.0-31.0) pg MCHC (32.0-36.0) g/dL RDW (12.0-15.0) % Plt Count (130-450) 10^3/uL MPV (7.9-10.8) fL Neut # (Auto) (1.5-6.6) 10^3/uL Lymph # (Auto) (1.5-3.5) 10^3/uL [place] # (Auto) (0.0-1.0) 10^3/uL Eos # (Auto) (0.0-0.7) 10^3/uL Baso # (Auto) (0.0-0.1) 10^3/uL Absolute Nucleated RBC x10^3/uL Nucleated RBC % /100WBC Sodium 132 L (135-145) mmol/L Potassium 3.2 L (3.5-5.0) mmol/L Chloride 94 L (101-111) mmol/L Carbon Dioxide 25 (21-32) mmol/L Anion Gap 13.0 (6-13) BUN 11 (6-20) mg/dL Creatinine 0.7 (0.4-1.0) mg/dL Estimated GFR (MDRD) 79 L (>89) Glucose 112 H (70-100) mg/dL Lactic Acid 0.9 (0.5-2.2) mmol/L Calcium 9.2 (8.5-10.3) mg/dL Magnesium 1.2 L (1.7-2.8) mg/dL Total Bilirubin 0.7 (0.2-1.0) mg/dL AST 28 (10-42) IU/L ALT 17 (10-60) IU/L Alkaline Phosphatase 58 (42-121) IU/L Total Protein 7.1 (6.7-8.2) g/dL Albumin 3.5 (3.2-5.5) g/dL Globulin 3.6 (2.1-4.2) g/dL Albumin/Globulin Ratio 1.0 (1.0-2.2) Lipase 36 (22-51) U/L Urine Color YELLOW Urine Clarity CLEAR (CLEAR) Urine pH 7.5 (5.0-7.5) PH Ur Specific [place] 1.015 (1.002-1.030) Urine Protein 100 H (NEGATIVE) mg/dL Urine Glucose (UA) NEGATIVE (NEGATIVE) mg/dL Urine Ketones TRACE (NEGATIVE) mg/dL Urine Occult Blood MODERATE H (NEGATIVE) Urine Nitrite NEGATIVE (NEGATIVE) Urine Bilirubin NEGATIVE (NEGATIVE) Urine Urobilinogen 0.2 (NORMAL) (NORMAL) E.U./dL Ur Leukocyte Esterase NEGATIVE (NEGATIVE) Urine RBC 6-10 H (0-5) /HPF Urine WBC 0-3 (0-5) /HPF Ur Epithelial Cells FEW Transitional (<= Few) /HPF Ur Squamous Epith Cells RARE Squamous (<= Few) Urine Bacteria Rare (None Seen) /HPF Ur Microscopic Review INDICATED Urine Culture Comments NOT INDICATED 09/26/18 Range/Units 11:10 WBC 7.6 (4.8-10.8) x10^3/uL RBC 3.95 L (4.20-5.40) 10^6/uL Hgb 11.9 L (12.0-16.0) g/dL Hct 35.6 L (37.0-47.0) % MCV 90.1 (81.0-99.0) fL MCH 30.2 (27.0-31.0) pg MCHC 33.5 (32.0-36.0) g/dL RDW 14.7 (12.0-15.0) % Plt Count 148 (130-450) 10^3/uL MPV 9.3 (7.9-10.8) fL Neut # (Auto) 6.6 (1.5-6.6) 10^3/uL Lymph # (Auto) 0.4 L (1.5-3.5) 10^3/uL [place] # (Auto) 0.5 (0.0-1.0) 10^3/uL Eos # (Auto) 0.1 (0.0-0.7) 10^3/uL Baso # (Auto) 0.0 (0.0-0.1) 10^3/uL Absolute Nucleated RBC 0.00 x10^3/uL Nucleated RBC % 0.0 /100WBC Sodium (135-145) mmol/L Potassium (3.5-5.0) mmol/L Chloride (101-111) mmol/L Carbon Dioxide (21-32) mmol/L Anion Gap (6-13) BUN (6-20) mg/dL Creatinine (0.4-1.0) mg/dL Estimated GFR (MDRD) (>89) Glucose (70-100) mg/dL Lactic Acid (0.5-2.2) mmol/L Calcium (8.5-10.3) mg/dL Magnesium (1.7-2.8) mg/dL Total Bilirubin (0.2-1.0) mg/dL AST (10-42) IU/L ALT (10-60) IU/L Alkaline Phosphatase (42-121) IU/L Total Protein (6.7-8.2) g/dL Albumin (3.2-5.5) g/dL Globulin (2.1-4.2) g/dL Albumin/Globulin Ratio (1.0-2.2) Lipase (22-51) U/L Urine Color Urine Clarity (CLEAR) Urine pH (5.0-7.5) PH Ur Specific [place] (1.002-1.030) Urine Protein (NEGATIVE) mg/dL Urine Glucose (UA) (NEGATIVE) mg/dL Urine Ketones (NEGATIVE) mg/dL Urine Occult Blood (NEGATIVE) Urine Nitrite (NEGATIVE) Urine Bilirubin (NEGATIVE) Urine Urobilinogen (NORMAL) E.U./dL Ur Leukocyte Esterase (NEGATIVE) Urine RBC (0-5) /HPF Urine WBC (0-5) /HPF Ur Epithelial Cells (<= Few) /HPF Ur Squamous Epith Cells (<= Few) Urine Bacteria (None Seen) /HPF Ur Microscopic Review Urine Culture Comments - Diagnostic Imaging Results Diagnostic Imaging Results: positive: Final report reviewed - EKG Results EKG Interpreted Independently: Yes EKG Comparison: positive: No prior EKG Impression/Plan - Problem List Problem List: 1. Ground-level fall with scalp hematoma 2. Neurocognitive deficits to include poor memory, disorientation, balance and gait issues 3. Atherosclerosis involving the intracranial vessels with a 3 x 4 mm supraclinoid right ICA aneurysm 4. Left lower lobe uncomplicated pneumonia 5. Vascular type Dementia with behavioral disturbance, agitation 6. Electrolyte disturbance with hypomagnesemia, hypokalemia, hyponatremia 7. Macrocytic anemia 8. Chronic T12 compression wedge fracture, likely secondary to osteopenia /osteoporosis 9. Hypertension uncontrolled 10. Poor vision with history of cataracts 11. Advance care planning/education counseling Plan: Patient will be admitted to med/surgery with telemetry, IV fluids will be started, blood pressure medications with permissive systolic blood pressures to be controlled only if above 180, EKG to follow, magnesium to be corrected. CTA of the head and neck shows no acute hemorrhage, mass or midline shifting. Atherosclerotic plaque involving the carotid bulbs with less than 50% stenosis seen. 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 There is Atherosclerotic plaque involving the origin of the left vertebral artery and proximal V1 segment of the left vertebral artery with approximately 50% stenosis. In addition there is a focal caliber change of the V3 segment of the right vertebral artery at the level of the C1 with fusiform enlargement measuring up to 4 mm which is a sequela of prior dissection. There is medially projecting outpouching arising from the supraclinoid right ICA measuring 3 x 4 mm finding concerning for aneurysm. Concern of patient's memory along with disorientation gait and multiple falls. Order physical therapy as well as occupational therapy. Patient may need TCU placement. Concern for oral pharyngeal dysphasia present. Will obtain a speech pathology swallow eval for food consistency. Correct underlying electrolyte disturbances. Start on Augmentin 875 mg p.o. twice daily for left lower lobe consolidation which was seen on CT chest. Patient likely has underlying osteoporosis with chronic T12 wedge compression fracture. No mention of DEXA scan as an outpatient. Patient with probable underlying coronary disease with evidence of coronary and thoracic atherosclerosis. Will place on secondary prevention pharmacological treatment with statin, aspirin, metoprolol. Macrocytic anemia, obtain occult, vitamin B12/folic acid, TSH Echocardiogram to follow. May benefit from starting Namenda 5 mg p.o. twice daily. May need benzodiazepine for underlying anxiety with something to control her agitation which would be difficult and the need for antipsychotics may be of use but will place on physical two-point soft restraints if needed. Osteoporosis screening/management initiated; Continue with Fosamax, vitamin D and calcium supplementation Advance care planning/education counseling: Family was present at bedside and plan of care along with symptom management and trajectory of illness was explained in detail. Currently family has confirmed DNR status that patient has a POLST that is not in [facility] Will place on DVT/GI prophylaxis CODE STATUS: DNR Core Measures - Anticipated LOS I expect patient to be DC'd or transferred within 96 hours.: Yes - Issues Hospital Issues and Management Plan: Patient may require [facility]ci facility or TCU placement - DVT/VTE - Prophylaxis VTE/DVT Device ordered at admit?: Yes VTE/DVT Prophylaxis med ordered at admit?: Yes - Stroke - Rehab Assessment Rehab services assessment to be ordered?: Yes - AMI - Statin at Admit Aspirin Prescribed on Admit: Yes
[2018-09-26] MEDS ORDERED: hydrALAZINE INJ 20 MG/ML VIAL IVP PRN (13:38)
[2018-09-26] MEDS ORDERED: amLODIPine 5 MG TABLET PO STA (13:39)
[2018-09-26 13:52] LABS: % IRON SATURATION 19 % (20-50); IRON 63 ug/dL (28-170); TOTAL IRON BINDING CAPACITY 328 ug/dL (250-450); TRANSFERRIN 234 mg/dL (192-382)
[2018-09-26] MEDS ORDERED: LORazepam 2 MG/ML VIAL IVP STA (13:52)
[2018-09-26 13:53] LABS: PT - PROTHROMBIN TIME 11.3 secs (9.9-12.6)
[2018-09-26] MEDS ORDERED: MAGNESIUM SULFATE 2 GRAM 2 GM/50 ML BAG IV ONE (14:00)
[2018-09-26 14:01] LABS: THYROID STIMULATING HORMONE 4.42 uIU/mL (0.34-5.60)
[2018-09-26] MEDS ORDERED: HALOPERIDOL 5 MG/ML VIAL IVP PRN (14:05)
[2018-09-26 14:12] LABS: FOLATE 19.33 ng/mL (5.90 - >24.8)
[2018-09-26] MEDS: SODIUM CHLORIDE FLUSH 0.9% 10 ML SYRINGE IVP PRN ×2 (14:39→14:57)
[2018-09-26] MEDS: LACTATED RINGERS 1,000 ML IV SCH (15:05)
[2018-09-26] MEDS ORDERED: IOVERSOL 320 100 ML VIAL IVP ONE ×2 (15:35→16:10)
[2018-09-26] MEDS: HEPARIN 5,000 UNIT/ML VIAL SUBQ SCH ×2 (16:59→22:33)
[2018-09-26] MEDS: SODIUM CHLORIDE FLUSH 0.9% 10 ML SYRINGE IVP SCH (17:01)
--- NOTE | 2018-09-26 17:58 | CT Report ---
Reason: Suspected ischemic CVA Procedure Date: 09/26/2018 Accession Number: [id number] / [id number] Procedure: CT - ANGIO NECK W/WO CPT Code: FULL RESULT: EXAM: CT ANGIOGRAM HEAD AND NECK. CT SCAN HEAD WITH CONTRAST. EXAM DATE: 09/26/2018 04:00 PM. CLINICAL HISTORY: 87-year-old with ground-level fall. Evaluate for intracranial pathology or vascular pathology. COMPARISON: Noncontrast CT head 09/26/2018. TECHNIQUE: Routine axial helical CTA imaging was performed from the aortic arch through the [place]. Routine axial CT imaging of the head was performed following contrast administration. Reconstructions: Routine multiplanar 3D MIP reconstructions. IV contrast: 80 cc Optiray 320. NASCET Criteria are used for stenosis measurements. In accordance with CT protocol optimization, one or more of the following dose reduction techniques were utilized for this exam: automated exposure control, adjustment of mA and/or KV based on patient size, or use of iterative reconstructive technique. FINDINGS: CT SCAN HEAD: Parenchyma: No acute parenchymal hemorrhage, mass, or midline shift. Mild to moderate bilateral areas of white matter hypoattenuation are seen that are age-indeterminate but appear chronic. There is no convincing CT evidence of acute infarct. Moderate cortical volume loss and mild cerebellar volume loss. No abnormal postcontrast enhancement. Extra-axial Spaces: Normal for age. No subdural or epidural collections identified. Ventricles: Normal in size and position. Sinuses and Orbits: Changes of bilateral lens replacement. Visualized paranasal sinuses, mastoid air cells and middle ear cavities appear clear. Bones: No evidence of fracture or calvarial defect. Other: Vascular calcifications of the cavernous ICA segments. CT ANGIOGRAM HEAD AND NECK: Mild to moderate atherosclerotic plaque involving the aortic arch. The origins of the great vessels are not fully visualized. There is atherosclerotic plaque along the course of the proximal right subclavian artery with no high-grade stenosis. There is atherosclerotic plaque along the course of the left subclavian artery with no high-grade stenosis seen. RIGHT: Common Carotid Artery: Retrotracheal course of the common carotid artery.. Carotid Bulb: There is moderate to severe atherosclerotic plaque at the bifurcation and siphon. Stenosis at the bifurcation by NASCET criteria: Less than 50% stenosis. Internal Carotid Artery: Atherosclerotic plaque involving the proximal cervical ICA with less than 50% stenosis. Tortuosity of the cervical ICA with no definite dissection or high-grade stenosis seen. Vascular calcifications of the cavernous ICA segment with no high-grade stenosis seen. Medially projecting outpouching arising from the supraclinoid right ICA measuring 3 x 4 mm (series 4, image 425). External Carotid Artery: Unremarkable. 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 Focal caliber change of the V3 segment of the right vertebral artery at the level of C1 with fusiform enlargement measuring up to 4 mm (series 4, image 308). There is further narrowing of the intradural V4 segment of the left vertebral artery after the right PICA takeoff with atherosclerotic plaque seen but no definite high-grade stenosis. No aneurysm of the intracranial vertebral artery. Anterior Cerebral Artery: Patent without significant stenosis, aneurysm, or vascular malformation. Middle Cerebral Artery: Patent without significant stenosis, aneurysm, or vascular malformation. Posterior Cerebral Artery: Patent without significant stenosis, aneurysm, or vascular malformation. Posterior Communicating Artery: Patent. No aneurysm. LEFT: Common Carotid Artery: Retrotracheal approach of the common carotid artery with no definite high-grade stenosis or dissection seen. Carotid Bulb: There is moderate atherosclerotic plaque at the bifurcation and siphon. There is a medially projecting outpouching arising from the carotid bifurcation measuring 4 x 4 mm (series 4, image 218). Stenosis at the bifurcation by NASCET criteria: Less than 50% stenosis. Internal Carotid Artery: Tortuosity of the cervical ICA with no high-grade stenosis seen. There is atherosclerotic carotid plaque involving the cavernous ICA segment with no high-grade stenosis seen. There is mild stenosis of the left ICA terminus. No evidence of aneurysm along the intracranial ICA. External Carotid Artery: Unremarkable. Vertebral Artery: Atherosclerotic plaque involving the origin and proximal V1 segment of the left vertebral artery with approximately 50% stenosis. The V2 and V3 segments appear tortuous but no definite dissection or high-grade stenosis is seen. Intradural V4 segment demonstrates atherosclerotic plaque but no high-grade stenosis. No dissection. No aneurysm. Anterior Cerebral Artery: Hypoplastic A1 segment with normal-appearing A2 segment due to flow through the anterior communicating artery. No aneurysm. Middle Cerebral Artery: Patent without significant stenosis, aneurysm, or vascular malformation. Posterior Cerebral Artery: Patent without significant stenosis, aneurysm, or vascular malformation. Posterior Communicating Artery: Patent. No aneurysm. CENTRAL: Anterior Communicating Artery: Patent. No aneurysm. Basilar Artery: Patent without significant stenosis. No aneurysm. DURAL VENOUS SINUSES AND MAJOR CENTRAL VEINS: Patent. OTHER: The visualized pharynx and larynx appear normal. Major salivary glands appear normal. There are hypodensities seen within the right and left thyroid lobe measuring up to 7 mm on the right (series 4, image 113) and 3 mm on the left (series 4, image 123). No cervical lymphadenopathy or necrotic lymph nodes seen. Soft tissues of the neck appear normal. Pleural-parenchymal scarring at the visualized lung apices. Mild emphysematous changes. No acute fracture or traumatic subluxation of the cervical spine. Multilevel degenerative changes. No suspicious osseous lesion. IMPRESSION: CT SCAN HEAD: 1. No definite acute infarct seen. If there is clinical concern for acute stroke or symptoms persist an MR brain could be considered to evaluate for small or subtle pathology. ASPECTS: 10 right/10 left. 2. No acute intracranial hemorrhage, mass, hydrocephalus, or midline shift. No abnormal postcontrast enhancement. 3. Mild to moderate white matter changes seen that appear chronic and may represent sequela of chronic small vessel ischemic disease. CT ANGIOGRAM NECK: 1. Atherosclerotic plaque involving the carotid bulbs with less than 50% stenosis seen. 2. There is a medially projecting outpouching arising from the left carotid bifurcation measuring 4 x 4 mm (series 4, image 218). Finding may represent pseudoaneurysm or penetrating carotid ulcer. 3. There is atherosclerotic plaque involving the origin of left vertebral artery and proximal V1 segment of left vertebral artery with approximately 50% stenosis. 4. 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 There is focal caliber change of the V3 segment of the right vertebral artery at the level of C1 with fusiform enlargement measuring up to 4 mm (series 4, image 308). Finding may represent sequela of prior dissection. CT ANGIOGRAM HEAD: 1. No large vessel occlusion. 2. Mild stenosis of the left ICA terminus. 3. Medially projecting outpouching arising from the supraclinoid right ICA measuring 3 x 4 mm (series 4, image 425). Finding is concerning for aneurysm. RADIA The call report notification system was initiated by Dr. Channing Moore at 05:57 PM on 09/26/2018. The above call report findings were discussed with NABOR Comer by Dr. Channing Moore at 06:01 PM on 09/26/2018.
[2018-09-26] MEDS ORDERED: AMOX/CLAV 875 MG/125 MG TABLET PO SCH (21:00)
[2018-09-26] MEDS ORDERED: METOPROLOL SUCCINATE 25 MG TABLET PO SCH (21:00)
[2018-09-26] MEDS: ATORVASTATIN 40 MG TABLET PO SCH (21:13)
[2018-09-26] MEDS: CALCIUM CARB (OYSTER SHELL) 500 MG TABLET PO SCH (21:13)
[2018-09-26] MEDS: FAMOTIDINE 20 MG TABLET PO SCH (21:14)
[2018-09-26] MEDS: MEMANTINE 5 MG TABLET PO SCH (21:14)
[2018-09-26] MEDS ORDERED: WATER FOR INJECTION,STERILE 10 ML ONE ×2 (22:15→22:16)
[2018-09-26] MEDS: AZITHROMYCIN INJ 250 MG in SODIUM CHLORIDE 0.9% 250 ML IV SCH (22:33)
[2018-09-26] MEDS: cefTRIAXone 2 GM VIAL IVP SCH (22:33)
[2018-09-27] MEDS: LACTATED RINGERS 1,000 ML IV SCH (05:37)
[2018-09-27] MEDS: HEPARIN 5,000 UNIT/ML VIAL SUBQ SCH ×3 (05:47→21:59)
[2018-09-27 06:02] LABS: BASOPHILS % (AUTO) 0.4 %; EOSINOPHILS % (AUTO) 0.4 %; HGB - HEMOGLOBIN 11.6 g/dL (12.0-16.0); LYMPHOCYTES # (AUTO) 0.4 10^3/uL (1.5-3.5); LYMPHOCYTES % (AUTO) 7.5 %; MEAN CORPUSCULAR HEMOGLOBIN 30.4 pg (27.0-31.0); MEAN CORPUSCULAR HGB CONC 33.3 g/dL (32.0-36.0); MEAN CORPUSCULAR VOLUME 91.2 fL (81.0-99.0); MEAN PLATELET VOLUME 9.2 fL (7.9-10.8); MONOCYTES # (AUTO) 0.6 10^3/uL (0.0-1.0); NEUTROPHILS # (AUTO) 4.8 10^3/uL (1.5-6.6); NEUTROPHILS % (AUTO) 81.7 %; PLT - PLATELET COUNT 138 10^3/uL (130-450); RED BLOOD COUNT 3.81 10^6/uL (4.20-5.40); WHITE BLOOD COUNT 5.9 x10^3/uL (4.8-10.8)
[2018-09-27 06:09] LABS: ALBUMIN 3.3 g/dL (3.2-5.5); BUN - BLOOD UREA NITROGEN 9 mg/dL (6-20); CALCIUM 8.6 mg/dL (8.5-10.3); CARBON DIOXIDE - CO2 22 mmol/L (21-32); CHLORIDE 97 mmol/L (101-111); CHOL/HDL RATIO 1.5 (<4.4); CHOLESTEROL 173 mg/dL; CREATININE 0.7 mg/dL (0.4-1.0); GFR - MDRD 79 (>89); GLUCOSE 98 mg/dL (70-100); HDL CHOLESTEROL 112 mg/dL; LDL CHOLESTEROL,CALCULATED 48 mg/dL; LDL/HDL RATIO 0.4 (<4.4); PHOSPHORUS 2.5 mg/dL (2.5-4.6); SODIUM 135 mmol/L (135-145); VLDL CHOLESTEROL 13 mg/dL
[2018-09-27] MEDS ORDERED: POTASSIUM CHLORIDE INJ 40 MEQ in SODIUM CHLORIDE 0.9% 480 ML IV ONE ×2 (06:11→13:00)
[2018-09-27] MEDS ORDERED: ACETAMINOPHEN 1,000 MG/100 ML 100 ML IV PRN (06:11)
[2018-09-27] MEDS ORDERED: ALENDRONATE 70 MG TABLET PO SCH (06:30)
[2018-09-27] MEDS: SODIUM CHLORIDE FLUSH 0.9% 10 ML SYRINGE IVP SCH ×3 (07:25→17:17)
[2018-09-27] MEDS ORDERED: LACTATED RINGERS 1,000 ML IV SCH (07:44)
[2018-09-27] MEDS ORDERED: MAGNESIUM OXIDE 400 MG TABLET PO SCH (08:00)
--- NOTE | 2018-09-27 08:40 | XRAY Report ---
Reason: fall with hand injury/bruise Procedure Date: 09/26/2018 Accession Number: [id number] / [id number] Procedure: XR - Hand 3 View RT CPT Code: FULL RESULT: EXAM: RIGHT HAND RADIOGRAPHY EXAM DATE: 09/26/2018 11:53 AM. CLINICAL HISTORY: Ground-level fall with hand bruising and pain COMPARISON: HAND 3 VIEW RT 10/24/2014 7:49 AM. TECHNIQUE: 3 views. FINDINGS: Bones: Severe osteopenia. Minimally displaced fracture of the fifth metacarpal neck is noted. No other fracture lines seen. Joints: Severe erosive arthritis noted at multiple interphalangeal joints, most conspicuous at the third PIP joint. Moderate arthritis seen at the wrist. Soft Tissues: Soft tissue swelling seen at the hypothenar eminence. Vascular calcifications noted. IMPRESSION: 1. Minimally displaced fracture of the fifth metacarpal neck is noted. No other fracture lines are seen in the right hand. Although severe osteopenia somewhat limits evaluation. 2. 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 RADIA
--- NOTE | 2018-09-27 08:42 | XRAY Report ---
Reason: fall with pain knee or hip Procedure Date: 09/26/2018 Accession Number: [id number] / [id number] Procedure: XR - Femur 2V LT CPT Code: FULL RESULT: EXAM: LEFT FEMUR RADIOGRAPHY EXAM DATE: 09/26/2018 11:53 AM. CLINICAL HISTORY: Ground-level fall with pain COMPARISON: None. TECHNIQUE: 2 views. FINDINGS: Bones: Normal. No fracture or bone lesion. Joints: The visualized hip and knee joints are normal in alignment. No effusions. Soft Tissues: Normal. No soft tissue swelling. IMPRESSION: Normal femur radiography. RADIA
[2018-09-27] MEDS: [UNRECOGNIZED DRUG - OTHER] IV SCH (09:21)
[2018-09-27] MEDS: FOLIC ACID IV SCH (09:21)
[2018-09-27] MEDS: MAGNESIUM SULFATE IV SCH (09:21)
[2018-09-27] MEDS: MULTIVITAMIN IV SCH (09:21)
[2018-09-27] MEDS: THIAMINE INJ 500 MG in SODIUM CHLORIDE 0.9% 50 ML IV SCH ×3 (09:21→22:01)
--- NOTE | 2018-09-27 11:23 | MISCELLANEOUS PROVIDER NOTE ---
Miscellaneous Provider Note - - Note: HPI: This is a pleasantly demented 87-year-old female with a history of dementia of unknown type, hypertension, cataracts, who apparently has been falling down for the last 2 to 3 days with associated memory impairment disorientation gait and balance issues. She had a total of 6 falls in the last day or so for which subsequently produced a ground-level fall today with a scalp hematoma. CT of the head did not show any acute intracranial process and her labs were significant for electrolyte disturbance with preserved renal function and a hemoglobin of 11.9 with no overt bleeding disorders. There was a concern for possible suspected ischemic CVA however patient had no order for EKG or echocardiogram or CTA in the ED. Patient had a CT chest which showed left lower lobe consolidation versus atelectasis with evidence of cholelithiasis with chronic T12 wedge compression fracture along with coronary and thoracic atherosclerosis. Patient does admit to drinking wine on a daily basis. Subjective: Patient seen at bedside with obvious neurocognitive deficits. Patient having tremors visible and waxing and waning mentation. Patient has intermittent Rigors attributable to chills. Low-grade fevers with a T-max of 100.5. Patient was placed on IV antibiotics last night. There is no mention of overt seizure disorders, shortness of breath, palpitations, GI or symptoms, micropapular rashes, joint swelling or tenderness, headaches or visual di sturbances. Objective: Vital signs are hemodynamically stable, afebrile T-max of 100.5, heart rate of 121 (98), blood pressure 139/91, non-hypoxemic. RR 24 with 94% O2 saturation on room air General: Patient is demented and in no acute respiratory distress with obvious neurocognitive deficits, is arousable and responds somewhat to verbal command but has waxing and when the waning mental status changes. HEENT: Pupils equal round react light and accommodation, extraocular muscles are bilateral intact, NCAT, No conjunctival pallor, scleral icterus Neck: No JVD, no bruits, no lymphadenopathy next CV/lungs: Mild decrease and breath sounds to the left versus the right, no rales, no rhonchi, no increased work of breath or retractions, no wheezing Abdomen: Soft, Nontender nondistended. Positive bowel sounds all quadrants. No hepatosplenomegaly Extremities/skin: No edema, clubbing, or cyanosis. No maculopapular rashes. Spontaneous movement of upper and lower extremities. No ulcerative lesions. Neuro: Difficult to assess due to neurocognitive deficits. At times there is mental status lability but with no overt psychomotor retardation. DTRs are bilateral and symmetric. Negative Babinski sign bilaterally. Labs: Reviewed Imaging studies: Reviewed Assessment/Plan: 1. Ground-level fall with scalp hematoma 2. Neurocognitive deficits to include poor memory, disorientation, balance and gait issues 3. Atherosclerosis involving the intracranial vessels with a 3 x 4 mm supraclinoid right ICA aneurysm 4. Left lower lobe uncomplicated pneumonia 5. Vascular type Dementia with behavioral disturbance, agitation 6. Oropharyngeal dysphagia secondary to dementia 7. Electrolyte disturbance with hypomagnesemia, hypokalemia, hyponatremia 8. Macrocytic anemia 9. Chronic T12 compression wedge fracture, likely secondary to osteopenia/osteoporosis 10. Hypertension uncontrolled 11. Poor vision with history of cataracts 12. Advance care planning/education counseling Plan: Patient's neuro cognitive deficits may be related to underlying vascular type dementia as evidenced from CT head and CTA showing some atherosclerotic jose alfredo que with no overt stenosis. 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 Patient is not a surgical candidate or family has deferred from potential interventional radiology intervention. In addition, patient having a scalp hematoma with a recent fall may have underlying postconcussive syndrome. In addition, patient per history had wine every day and unclear if this could also be Wernicke's encephalopathy coexisting. Banana bag was started with the Wernicke's protocol for thiamine 500 mg IV 3 times daily for 3 days. If patient response to therapy, continue with 250 mg IV once daily for 5 days or until clinical improvement. We will obtain a speech pathologist to evaluate for food consistency and possible dementia related oral pharyngeal dysphasia. Patient likely will have the need to crush all her medications and placed into applesauce which was being done previously. Restart patent's Exelon. Patient has low-grade fevers and now is on IV Rocephin and azithromycin to continue. Blood cultures are negative growth to date. Electrolytes are being controlled with potassium supplementation, magnesium in the setting of patient's Tachycardia. Macrocytic anemia were addressed with normal B12 folic acid and TSH levels. Echocardiogram shows a 60 to 65% ejection fraction with a grade 2 diastolic dysfunction which would recommend afterload reduction with titration of metoprolol ER succinate to 25 mg p.o. twice daily. Patient likely has underlying osteoporosis with chronic T12 wedge compression fracture. Osteoporosis screening/management initiated; Continue with Fosamax, vitamin D and calcium supplementation. No mention of DEXA scan as an outpatient. Patient with probable underlying coronary disease with evidence of coronary and thoracic atherosclerosis. Will place on secondary prevention pharmacological treatment with statin, aspirin, metoprolol. Continue with Namenda. Minimize the use of sedate of agents and the use of chemical restraints. Advance care planning/education counseling: Family was present at bedside and plan of care along with symptom management and trajectory of illness was explained in detail. Currently family has confirmed DNR status that patient has a POLST that is not in [facility] Will place on DVT/GI prophylaxis CODE STATUS: DNR
[2018-09-27] MEDS: LACTOBACILLUS RHAMNOSUS GG CAPSULE PO SCH (12:58)
[2018-09-27] MEDS: MAGNESIUM OXIDE 400 MG TABLET PO SCH (12:58)
[2018-09-27] MEDS: ASPIRIN CHEW 81 MG TABLET PO SCH (12:59)
[2018-09-27] MEDS: FAMOTIDINE 20 MG TABLET PO SCH ×2 (12:59→21:51)
[2018-09-27] MEDS: MEMANTINE 5 MG TABLET PO SCH ×2 (12:59→21:51)
[2018-09-27] MEDS: RIVASTIGMINE 1.5 MG CAPSULE PO SCH ×2 (13:00→21:52)
[2018-09-27] MEDS: CHOLECALCIFEROL 1,000 UNIT TABLET PO SCH (13:00)
[2018-09-27] MEDS: POLYETHYLENE GLYCOL 3350 17 GM PACKET PO SCH (13:00)
[2018-09-27] MEDS: METOPROLOL SUCCINATE 25 MG TABLET PO SCH ×2 (13:00→21:51)
[2018-09-27] MEDS: CALCIUM CARB (OYSTER SHELL) 500 MG TABLET PO SCH ×2 (13:00→21:52)
[2018-09-27] MEDS ORDERED: SODIUM CHLORIDE 0.9% 50 ML IV ONE ×2 (13:49→21:15)
[2018-09-27 20:06] LABS: BILIRUBIN,URINE NEGATIVE (NEGATIVE); GLUCOSE, URINE (UA) NEGATIVE (NEGATIVE); KETONES,URINE (UA) 15 mg/dL (NEGATIVE); LEUKOCYTE ESTERASE, URINE NEGATIVE (NEGATIVE); NITRITE,URINE NEGATIVE (NEGATIVE); OCCULT BLOOD,URINE SMALL (NEGATIVE); PROTEIN,URINE 30 mg/dL (NEGATIVE); UROBILINOGEN,URINE 0.2 (NORMAL) E.U./dL (NORMAL)
[2018-09-27 20:14] LABS: BACTERIA,URINE None Seen /HPF (None Seen); CLARITY,URINE CLEAR (CLEAR); RBC,URINE 0-5 /HPF (0-5); SQUAMOUS EPITHELIAL CELL,UR MOD Squamous (<= Few)
[2018-09-27] MEDS ORDERED: WATER FOR INJECTION,STERILE 20 ML ONE (21:24)
[2018-09-27] MEDS: cefTRIAXone 2 GM VIAL IVP SCH (21:51)
[2018-09-27] MEDS: ATORVASTATIN 40 MG TABLET PO SCH (21:51)
[2018-09-27] MEDS: AZITHROMYCIN INJ 250 MG in SODIUM CHLORIDE 0.9% 250 ML IV SCH ×2 (22:00→23:26)
[2018-09-27] MEDS: traMADol 50 MG TABLET PO PRN (23:52)
[2018-09-28] MEDS: SODIUM CHLORIDE FLUSH 0.9% 10 ML SYRINGE IVP SCH ×3 (02:38→16:59)
[2018-09-28 05:47] LABS: BASOPHILS % (AUTO) 0.4 %; EOSINOPHILS % (AUTO) 0.2 %; HGB - HEMOGLOBIN 11.1 g/dL (12.0-16.0); LYMPHOCYTES # (AUTO) 0.3 10^3/uL (1.5-3.5); LYMPHOCYTES % (AUTO) 3.7 %; MEAN CORPUSCULAR HEMOGLOBIN 30.5 pg (27.0-31.0); MEAN CORPUSCULAR HGB CONC 33.2 g/dL (32.0-36.0); MEAN CORPUSCULAR VOLUME 91.8 fL (81.0-99.0); MONOCYTES # (AUTO) 0.6 10^3/uL (0.0-1.0); MONOCYTES % (AUTO) 6.5 %; NEUTROPHILS % (AUTO) 89.2 %; PLT - PLATELET COUNT 157 10^3/uL (130-450); RED BLOOD COUNT 3.64 10^6/uL (4.20-5.40); RED CELL DISTRIBUTION WIDTH 15.2 % (12.0-15.0)
[2018-09-28 05:56] LABS: ALBUMIN 3.1 g/dL (3.2-5.5); CALCIUM 8.7 mg/dL (8.5-10.3); CREATININE 0.7 mg/dL (0.4-1.0); PHOSPHORUS 2.2 mg/dL (2.5-4.6)
[2018-09-28] MEDS: HEPARIN 5,000 UNIT/ML VIAL SUBQ SCH ×3 (06:08→22:21)
[2018-09-28] MEDS: SODIUM CHLORIDE FLUSH 0.9% 10 ML SYRINGE IVP PRN ×2 (06:08→14:56)
[2018-09-28] MEDS: THIAMINE INJ 500 MG in SODIUM CHLORIDE 0.9% 50 ML IV SCH ×3 (06:12→22:30)
[2018-09-28] MEDS: CHOLECALCIFEROL 1,000 UNIT TABLET PO SCH (09:25)
[2018-09-28] MEDS: RIVASTIGMINE 1.5 MG CAPSULE PO SCH ×2 (09:26→21:18)
[2018-09-28] MEDS: LACTOBACILLUS RHAMNOSUS GG CAPSULE PO SCH (09:26)
[2018-09-28] MEDS: MAGNESIUM OXIDE 400 MG TABLET PO SCH (09:26)
[2018-09-28] MEDS: METOPROLOL SUCCINATE 25 MG TABLET PO SCH (09:26)
[2018-09-28] MEDS: ASPIRIN CHEW 81 MG TABLET PO SCH (09:26)
[2018-09-28] MEDS: FAMOTIDINE 20 MG TABLET PO SCH ×2 (09:26→21:18)
[2018-09-28] MEDS: MEMANTINE 5 MG TABLET PO SCH ×2 (09:26→21:18)
[2018-09-28] MEDS: CALCIUM CARB (OYSTER SHELL) 500 MG TABLET PO SCH ×2 (09:26→21:18)
[2018-09-28] MEDS: traMADol 50 MG TABLET PO PRN (09:26)
[2018-09-28] MEDS: POLYETHYLENE GLYCOL 3350 17 GM PACKET PO SCH (09:26)
[2018-09-28] MEDS: [UNRECOGNIZED DRUG - OTHER] IV SCH (09:27)
[2018-09-28] MEDS: FOLIC ACID IV SCH (09:27)
[2018-09-28] MEDS: MULTIVITAMIN IV SCH (09:27)
[2018-09-28] MEDS: MAGNESIUM SULFATE IV SCH (09:27)
[2018-09-28] MEDS ORDERED: LORazepam 2 MG/ML VIAL IVP PRN (13:29)
[2018-09-28] MEDS ORDERED: METOPROLOL 5 MG/5 ML VIAL IVP ONE (13:33)
[2018-09-28 13:39] LABS: BILIRUBIN,DIRECT 0.2 mg/dL (0.1-0.5); TOTAL PROTEIN 6.7 g/dL (6.7-8.2)
[2018-09-28] MEDS ORDERED: LORazepam 100MG/100ML D5W 100 ML IV SCH (14:00)
--- NOTE | 2018-09-28 14:21 | PROVIDER PROGRESS NOTE ---
Assessment/Plan - Problem List (1) Mental status alteration Qualifiers: Altered mental status type: disorientation Qualified Code(s): R41.0 - Disorientation, unspecified Assessment/Plan: She has had brain and neck imaging, ruling out a CVA. She has waxing and waning alertness and orientation. Today she had an abnormal reaction after getting Ativan, and something similar after getting some sedative or anxiolytic on Thursday and also a hallucinations to narcotics 10 years ago. Will stop CIWA protocol, as describes that she (and he) have switched to non-alcoholic wine over the past seberal mos. I suspect she has encephalopathy related to her infection. Will order Seroquel prn . (2) Falling episodes Assessment/Plan: She fell 5 times during the night, as she was trying to go to the bathroom. She already had poor gait, er the . She will need PT. Orthostatic VS have been ordered, but could not be done today due to her confusion. (3) CAP (community acquired pneumonia) Assessment/Plan: Continue iv Ceftriaxone and Zithromax. (4) Dementia Qualifiers: Dementia type: vascular dementia Assessment/Plan: Per the and 2 daughters, she is worse than her baseline mild sementia, since this admission. Continue Namenda. (5) Aneurysm artery, neck Assessment/Plan: Continue management for atherosclerosis: good BP, cholesterol and antiplatelet therapy. (6) Low bicarbonate level Assessment/Plan: Will obtain a venous blood gas to assess pH and follow BMP daily. (7) HTN (hypertension) Assessment/Plan: Continue bP meds. (8) T12 compression fracture Assessment/Plan: Related to her osteopenia. She is on Fosamax and Calcium replacement. - Current Meds Current Meds: Current Medications Generic Name Dose Route Start Last Admin Trade Name Freq PRN Reason Stop Dose Admin Alendronate Sodium 70 mg 09/27/18 06:30 09/27/18 05:56 Fosamax PO Not Given Mo@0630 ESTELITA Aspirin 81 mg 09/27/18 09:00 09/28/18 09:26 Aaron Aspirin PO 81 mg DAILY ESTELITA Administration Atorvastatin Calcium 40 mg 09/26/18 21:00 09/27/18 21:51 Lipitor PO 40 mg QPM ESTELITA Administration Calcium Carbonate/Glycine 500 mg 09/26/18 21:00 09/28/18 09:26 Oysco-500 PO 500 mg BID ESTELITA Administration Ceftriaxone Sodium 2 gm 09/26/18 21:00 09/27/18 21:51 Rocephin IVP 2 gm Q24H ESTELITA Administration Famotidine 20 mg 09/26/18 21:00 09/28/18 09:26 Pepcid PO 20 mg BID ESTELITA Administration Heparin Sodium (Porcine) 5,000 unit 09/26/18 14:00 09/28/18 06:08 SUBQ 5,000 unit TID ESTELITA Administration Azithromycin 250 mg/ Sodium 250 mls @ 83.33 mls/hr 09/26/18 21:00 09/28/18 02:38 Chloride IV Infused Q24H ESTELITA Infusion Acetaminophen 100 mls @ 400 mls/hr 09/27/18 06:11 09/27/18 07:15 Ofirmev IV Infused Q6HR PRN Infusion PAIN Multivitamins 10 ml/ Folic 1,014.2 mls @ 100 mls/hr 09/27/18 09:00 09/28/18 09:27 Acid 1 mg/ Magnesium Sulfate 2 IV 100 mls/hr gm/ Sodium Chloride DAILY ESTELITA Administration Thiamine HCl 500 mg/ Sodium 55 mls @ 100 mls/hr 09/27/18 08:00 09/28/18 06:43 Chloride IV 09/29/18 08:00 Infused TID ESTELITA Infusion Lactobacillus Rhamnosus 1 cap 09/27/18 09:00 09/28/18 09:26 Culturelle PO 1 cap DAILY ESTELITA Administration Magnesium Oxide 600 mg 09/27/18 08:00 09/28/18 09:26 Mag Ox PO 600 mg DAILYWM ESTELITA Administration Memantine 5 mg 09/26/18 21:00 09/28/18 09:26 Namenda PO 5 mg BID ESTELITA Administration Metoprolol Succinate 25 mg 09/27/18 09:00 09/28/18 09:26 Toprol Xl PO 25 mg BID ESTELITA Administration Polyethylene Glycol 17 gm 09/27/18 09:00 09/28/18 09:26 Miralax PO 17 gm DAILY ESTELITA Administration Rivastigmine Tartrate 1.5 mg 09/27/18 09:00 09/28/18 09:26 Exelon PO 1.5 mg BID ESTELITA Administration Sodium Chloride 10 ml 09/26/18 13:18 05/07/19 06:08 Normal Saline Flush 0.9% IVP 10 ml PRN PRN Administration NEEDED PER PROVIDER ORDERS Sodium Chloride 10 ml 09/26/18 17:00 09/28/18 09:27 Normal Saline Flush 0.9% IVP 10 ml 0100,0900,1700 ESTELITA Administration Tramadol HCl 50 mg 09/27/18 07:43 09/28/18 09:26 Ultram PO 50 mg Q6H PRN Administration PAIN - Lab Result Fish Bone Diagrams: 09/28/18 05:21 09/28/18 05:21 - Additional Planning My Orders: My Active Orders 09/28/18 13:28 CIWA - AR Score Card [RC] PRN 09/28/18 13:29 Straight Catheter Insertion [RC] PRN Vital Signs [RC] Q30MX2,Q2HX2,Q4HX2,QSHIFT LORazepam INJ [Ativan Inj (Vial)] 1 mg IVP Q30M PRN 09/28/18 13:30 CIWA - AR Score Card [RC] Routine Routine Neuro Check [RC] Routine Routine 09/29/18 09:00 Atenolol [Tenormin] 50 mg PO DAILY Cholecalciferol [Vitamin D3] 2,000 unit PO DAILY Branch-3 Acid Ethyl Esters [Lovaza] 1 gm PO DAILY Subjective - Subjective Nursing Reports: Confused, Other (Fidgety and more puffed cheeks breathing, af ter she got Ativan, then fell asleep.) Objective Vital Signs: Vital Signs - 24 hr 09/27/18 09/27/18 09/28/18 16:22 21:00 02:33 Temperature 36.7 C 36.5 C 36.8 C Heart Rate [ 91 80 96 Brachial] Heart Rate [ Supine] Respiratory 16 20 18 Rate Blood Pressure 115/99 H 185/67 H 136/68 H [Left Brachial artery] Blood Pressure [Right Ankle] Blood Pressure [Supine] O2 Saturation 98 94 95 09/28/18 09/28/18 09/28/18 06:00 08:08 10:00 Temperature 36.8 C 36.8 C Heart Rate [ 98 119 H Brachial] Heart Rate [ 98 Supine] Respiratory 18 22 Rate Blood Pressure 153/86 H 178/123 H [Left Brachial artery] Blood Pressure [Right Ankle] Blood Pressure 157/121 H [Supine] O2 Saturation 92 97 09/28/18 09/28/18 13:07 13:29 Temperature 36.4 C L Heart Rate [ 91 94 Brachial] Heart Rate [ Supine] Respiratory 22 20 Rate Blood Pressure 184/105 H 154/111 H [Left Brachial artery] Blood Pressure 146/127 H [Right Ankle] Blood Pressure [Supine] O2 Saturation 97 97 Oxygen O2 Source Room air I&O (Last 24 Hrs): Intake and Output Totals x24h 09/26/18 09/27/18 09/28/18 23:59 23:59 23:59 Intake Total 1150 4089.2 405 Output Total 100 Balance 1150 4089.2 305 General: Other (Disoriented, pulling at sheets, follows with her eyes, tries to answer.) HEENT: Mucous membr. moist/pink, Other (Disheveled.) Neck: Supple Neuro: Disoriented, Other (Moves all extrem spontaneously. Babinski are downgoing.) Cardiovascular: Regular rate, No murmurs Respiratory: No respiratory distress, Breath sounds nml Abdomen: Soft Extremities: No edema, Other (Large eccymoses with swelling of R forearm and R hand.) - Results Results: Laboratory Results WBC 9.0 x10^3/uL (4.8-10.8) 09/28/18 05:21 RBC 3.64 10^6/uL (4.20-5.40) L 09/28/18 05:21 Hgb 11.1 g/dL (12.0-16.0) L 09/28/18 05:21 Hct 33.4 % (37.0-47.0) L 09/28/18 05:21 MCV 91.8 fL (81.0-99.0) 09/28/18 05:21 MCH 30.5 pg (27.0-31.0) 09/28/18 05:21 MCHC 33.2 g/dL (32.0-36.0) 09/28/18 05:21 RDW 15.2 % (12.0-15.0) H 09/28/18 05:21 Plt Count 157 10^3/uL (130-450) 09/28/18 05:21 MPV 9.0 fL (7.9-10.8) 09/28/18 05:21 Neut # (Auto) 8.0 10^3/uL (1.5-6.6) H 09/28/18 05:21 Lymph # (Auto) 0.3 10^3/uL (1.5-3.5) L 09/28/18 05:21 [place] # (Auto) 0.6 10^3/uL (0.0-1.0) 09/28/18 05:21 Eos # (Auto) 0.0 10^3/uL (0.0-0.7) 09/28/18 05:21 Baso # (Auto) 0.0 10^3/uL (0.0-0.1) 09/28/18 05:21 Absolute Nucleated RBC 0.00 x10^3/uL 09/28/18 05:21 Nucleated RBC % 0.0 /100WBC 09/28/18 05:21 PT 11.3 secs (9.9-12.6) 09/26/18 11:10 INR 1.0 (0.8-1.2) 09/26/18 11:10 Sodium 136 mmol/L (135-145) 09/28/18 05:21 Potassium 3.6 mmol/L (3.5-5.0) 09/28/18 05:21 Chloride 100 mmol/L (101-111) L 09/28/18 05:21 Carbon Dioxide 18 mmol/L (21-32) L 09/28/18 05:21 Anion Gap 18.0 (6-13) H 09/28/18 05:21 BUN 10 mg/dL (6-20) 09/28/18 05:21 Creatinine 0.7 mg/dL (0.4-1.0) 09/28/18 05:21 Estimated GFR (MDRD) 79 (>89) L 09/28/18 05:21 Glucose 163 mg/dL (70-100) H 09/28/18 05:21 POC Whole Bld Glucose 100 mg/dL (70 - 100) 09/26/18 13:32 Lactic Acid 0.9 mmol/L (0.5-2.2) 09/26/18 11:57 Calcium 8.7 mg/dL (8.5-10.3) 09/28/18 05:21 Phosphorus 2.2 mg/dL (2.5-4.6) L 09/28/18 05:21 Magnesium 1.7 mg/dL (1.7-2.8) 09/27/18 05:40 Iron 63 ug/dL (28-170) 09/26/18 11:20 TIBC 328 ug/dL (250-450) 09/26/18 11:20 % Saturation 19 % (20-50) L 09/26/18 11:20 Transferrin 234 mg/dL (192-382) 09/26/18 11:20 Total Bilirubin 1.0 mg/dL (0.2-1.0) 09/28/18 05:21 Direct Bilirubin 0.2 mg/dL (0.1-0.5) 09/28/18 05:21 AST 45 IU/L (10-42) H 09/28/18 05:21 ALT 17 IU/L (10-60) 09/28/18 05:21 Alkaline Phosphatase 71 IU/L (42-121) 09/28/18 05:21 Total Protein 6.7 g/dL (6.7-8.2) 09/28/18 05:21 Albumin 3.0 g/dL (3.2-5.5) L 09/28/18 05:21 Globulin 3.7 g/dL (2.1-4.2) 09/28/18 05:21 Albumin/Globulin Ratio 1.0 (1.0-2.2) 09/26/18 11:10 Triglycerides 67 mg/dL (-149) 09/27/18 05:32 Cholesterol 173 mg/dL (-199) 09/27/18 05:32 LDL Cholesterol, Calc 48 mg/dL (-129) 09/27/18 05:32 VLDL Cholesterol 13 mg/dL 09/27/18 05:32 HDL Cholesterol 112 mg/dL (60-) 09/27/18 05:32 LDL/HDL Ratio 0.4 (<4.4) 09/27/18 05:32 Cholesterol/HDL Ratio 1.5 (<4.4) 09/27/18 05:32 Lipase 36 U/L (22-51) 09/26/18 11:10 Vitamin B12 361 pg/mL (180-914) 09/26/18 11:20 Folate 19.33 ng/mL (5.90 - >24.8) 09/26/18 11:20 TSH 4.42 uIU/mL (0.34-5.60) 09/26/18 11:20 Urine Color YELLOW 09/27/18 19:47 Urine Clarity CLEAR (CLEAR) 09/27/18 19:47 Urine pH 6.0 PH (5.0-7.5) 09/27/18 19:47 Ur Specific Effie 1.015 (1.002-1.030) 09/27/18 19:47 Urine Protein 30 mg/dL (NEGATIVE) H 09/27/18 19:47 Urine Glucose (UA) NEGATIVE mg/dL (NEGATIVE) 09/27/18 19:47 Urine Ketones 15 mg/dL (NEGATIVE) H 09/27/18 19:47 Urine Occult Blood SMALL (NEGATIVE) H 09/27/18 19:47 Urine Nitrite NEGATIVE (NEGATIVE) 09/27/18 19:47 Urine Bilirubin NEGATIVE (NEGATIVE) 09/27/18 19:47 Urine Urobilinogen 0.2 (NORMAL) E.U./dL (NORMAL) 09/27/18 19:47 Ur Leukocyte Esterase NEGATIVE (NEGATIVE) 09/27/18 19:47 Urine RBC 0-5 /HPF (0-5) 09/27/18 19:47 Urine WBC 6-10 /HPF (0-5) H 09/27/18 19:47 Ur Epithelial Cells FEW Transitional /HPF (<= Few) 09/26/18 12:15 Ur Squamous Epith Cells MOD Squamous (<= Few) H 09/27/18 19:47 Urine Bacteria None Seen /HPF (None Seen) 09/27/18 19:47 Ur Microscopic Review INDICATED 09/26/18 12:15 Urine Culture Comments NOT INDICATED 09/27/18 19:47 Ethyl Alcohol < 5.0 mg/dL 09/26/18 11:10
[2018-09-28] MEDS ORDERED: ATENOLOL 25 MG TABLET PO SCH (16:00)
[2018-09-28] MEDS: AZITHROMYCIN INJ 250 MG in SODIUM CHLORIDE 0.9% 250 ML IV SCH (21:17)
[2018-09-28] MEDS: cefTRIAXone 2 GM VIAL IVP SCH (21:17)
[2018-09-28] MEDS: ATORVASTATIN 40 MG TABLET PO SCH (21:18)
[2018-09-29] MEDS: SODIUM CHLORIDE FLUSH 0.9% 10 ML SYRINGE IVP SCH ×3 (02:13→18:55)
[2018-09-29 05:59] LABS: ALBUMIN 2.9 g/dL (3.2-5.5); CALCIUM 8.3 mg/dL (8.5-10.3); CREATININE 0.7 mg/dL (0.4-1.0); PHOSPHORUS 2.2 mg/dL (2.5-4.6)
[2018-09-29 06:02] LABS: BASOPHILS % (AUTO) 0.3 %; EOSINOPHILS % (AUTO) 0.2 %; HGB - HEMOGLOBIN 11.3 g/dL (12.0-16.0); LYMPHOCYTES # (AUTO) 0.6 10^3/uL (1.5-3.5); LYMPHOCYTES % (AUTO) 10.3 %; MEAN CORPUSCULAR HEMOGLOBIN 30.7 pg (27.0-31.0); MEAN CORPUSCULAR HGB CONC 33.2 g/dL (32.0-36.0); MEAN CORPUSCULAR VOLUME 92.4 fL (81.0-99.0); MEAN PLATELET VOLUME 9.4 fL (7.9-10.8); MONOCYTES # (AUTO) 0.6 10^3/uL (0.0-1.0); MONOCYTES % (AUTO) 9.3 %; NEUTROPHILS # (AUTO) 4.9 10^3/uL (1.5-6.6); NEUTROPHILS % (AUTO) 79.9 %; PLT - PLATELET COUNT 153 10^3/uL (130-450); RED BLOOD COUNT 3.68 10^6/uL (4.20-5.40); RED CELL DISTRIBUTION WIDTH 15.6 % (12.0-15.0); WHITE BLOOD COUNT 6.1 x10^3/uL (4.8-10.8)
[2018-09-29] MEDS: HEPARIN 5,000 UNIT/ML VIAL SUBQ SCH ×3 (06:05→20:58)
[2018-09-29] MEDS: THIAMINE INJ 500 MG in SODIUM CHLORIDE 0.9% 50 ML IV SCH (06:40)
[2018-09-29] MEDS ORDERED: RIVASTIGMINE TD SCH (09:00)
[2018-09-29] MEDS: ASPIRIN CHEW 81 MG TABLET PO SCH (09:40)
[2018-09-29] MEDS: MEMANTINE 5 MG TABLET PO SCH ×2 (09:41→20:53)
[2018-09-29] MEDS: ATENOLOL 25 MG TABLET PO SCH (09:41)
[2018-09-29] MEDS: FAMOTIDINE 20 MG TABLET PO SCH ×2 (09:41→20:53)
[2018-09-29] MEDS: MAGNESIUM OXIDE 400 MG TABLET PO SCH (09:42)
[2018-09-29] MEDS: CHOLECALCIFEROL 1,000 UNIT TABLET PO SCH (09:42)
[2018-09-29] MEDS: CALCIUM CARB (OYSTER SHELL) 500 MG TABLET PO SCH ×2 (09:43→20:53)
[2018-09-29] MEDS: LACTOBACILLUS RHAMNOSUS GG CAPSULE PO SCH (09:51)
[2018-09-29] MEDS: RIVASTIGMINE 1.5 MG CAPSULE PO SCH ×2 (10:13→20:53)
[2018-09-29] MEDS: OMEGA-3 ACID ETHYL ESTERS 1 GM CAPSULE PO SCH (10:48)
[2018-09-29] MEDS: POLYETHYLENE GLYCOL 3350 17 GM PACKET PO SCH (10:48)
[2018-09-29] MEDS: [UNRECOGNIZED DRUG - OTHER] IV SCH (11:09)
[2018-09-29] MEDS: MULTIVITAMIN IV SCH (11:09)
[2018-09-29] MEDS: MAGNESIUM SULFATE IV SCH (11:09)
[2018-09-29] MEDS: FOLIC ACID IV SCH (11:09)
--- NOTE | 2018-09-29 13:36 | PROVIDER PROGRESS NOTE ---
Assessment/Plan - Problem List (1) Mental status alteration Qualifiers: Altered mental status type: disorientation Qualified Code(s): R41.0 - Disorientation, unspecified Assessment/Plan: She has improved considerably, is able to sit OOB in chair, follow commands, tracks, answers, is able to swallow thin liquids. Ativan was DCd because there was no alcohol intake, per the , and therefore no CIWA protocol needed nad the ativan made her more confused before sedating her. She was able to sleep overnight. She may have metabolic encephalopathy from the infection (CAP) and from Sundowning or possibly from Thiamine deficiency, as she is improving on 3 days of high dose Thiamine. (2) Falling episodes Assessment/Plan: Will start to obtaine the postural VS, as ordered at admission. Also, gait assessment by PT is pending. (3) CAP (community acquired pneumonia) Assessment/Plan: Continue empiric iv Zithromax and Ceftriaxone. (4) Dementia Qualifiers: Dementia type: vascular dementia Assessment/Plan: As in #1. (5) Aneurysm artery, neck Assessment/Plan: As per vascular W/U this admission. (6) Low bicarbonate level Assessment/Plan: Improved with hydration. (7) HTN (hypertension) Assessment/Plan: Stable on home meds. (8) T12 compression fracture Assessment/Plan: No c/o pain, has prn meds ordered, also Ca and Rosamax. - Current Meds Current Meds: Current Medications Generic Name Dose Route Start Last Admin Trade Name Freq PRN Reason Stop Dose Admin Alendronate Sodium 70 mg 09/27/18 06:30 09/27/18 05:56 Fosamax PO Not Given Mo@0630 ESTELITA Aspirin 81 mg 09/27/18 09:00 09/29/18 09:40 [facility] [place] Aspirin PO 81 mg DAILY ESTELITA Administration Atenolol 50 mg 09/29/18 09:00 09/29/18 09:41 Tenormin PO 50 mg DAILY ESTELITA Administration Atorvastatin Calcium 40 mg 09/26/18 21:00 09/28/18 21:18 Lipitor PO Not Given QPM ESTELITA Calcium Carbonate/Glycine 500 mg 09/26/18 21:00 09/29/18 09:43 Oysco-500 PO 500 mg BID ESTELITA Administration Ceftriaxone Sodium 2 gm 09/26/18 21:00 09/28/18 21:17 Rocephin IVP 2 gm Q24H ESTELITA Administration Cholecalciferol 2,000 unit 09/29/18 09:00 09/29/18 09:42 Vitamin D3 PO 2,000 unit DAILY ESTELITA Administration Famotidine 20 mg 09/26/18 21:00 09/29/18 09:41 Pepcid PO 20 mg BID ESTELITA Administration Heparin Sodium (Porcine) 5,000 unit 09/26/18 14:00 09/29/18 06:05 SUBQ 5,000 unit TID ESTELITA Administration Azithromycin 250 mg/ Sodium 250 mls @ 250 mls/hr 09/26/18 21:00 09/28/18 22:30 Chloride IV Infused Q24H ESTELITA Infusion Acetaminophen 100 mls @ 400 mls/hr 09/27/18 06:11 09/27/18 07:15 Ofirmev IV Infused Q6HR PRN Infusion PAIN Multivitamins 10 ml/ Folic 1,014.2 mls @ 100 mls/hr 09/27/18 09:00 09/29/18 11:09 Acid 1 mg/ Magnesium Sulfate 2 IV 100 mls/hr gm/ Sodium Chloride DAILY ESTELITA Administration Lactobacillus Rhamnosus 1 cap 09/27/18 09:00 09/29/18 09:51 Culturelle PO 1 cap DAILY ESTELITA Administration Magnesium Oxide 600 mg 09/27/18 08:00 09/29/18 09:42 Mag Ox PO 600 mg DAILYWM ESTELITA Administration Memantine 5 mg 09/26/18 21:00 09/29/18 09:41 Namenda PO 5 mg BID ESTELITA Administration [place]-1-Wdcc Ethyl Esters 1 gm 09/29/18 09:00 09/29/18 10:48 Lovaza PO Not Given DAILY ESTELITA Polyethylene Glycol 17 gm 09/27/18 09:00 09/29/18 10:48 Miralax PO Not Given DAILY ESTELITA Rivastigmine Tartrate 1.5 mg 09/27/18 09:00 09/29/18 10:13 Exelon PO 1.5 mg BID ESTELITA Administration Sodium Chloride 10 ml 09/26/18 13:18 09/28/18 14:56 Normal Saline Flush 0.9% IVP 50 ml PRN PRN Administration NEEDED PER PROVIDER ORDERS Sodium Chloride 10 ml 09/26/18 17:00 09/29/18 06:06 Normal Saline Flush 0.9% IVP 10 ml 0100,0900,1700 ESTELITA Administration Tramadol HCl 50 mg 09/27/18 07:43 09/28/18 09:26 Ultram PO 50 mg Q6H PRN Administration PAIN - Lab Result Fish Bone Diagrams: 09/29/18 05:21 09/29/18 05:21 - Additional Planning My Orders: My Active Orders 09/28/18 13:29 Straight Catheter Insertion [RC] PRN 09/29/18 09:00 Atenolol [Tenormin] 50 mg PO DAILY Cholecalciferol [Vitamin D3] 2,000 unit PO DAILY [place]-3 Acid Ethyl Esters [Lovaza] 1 gm PO DAILY Objective Vital Signs: Vital Signs - 24 hr 09/28/18 09/28/18 09/28/18 14:33 14:45 14:50 Temperature Heart Rate [ 102 H 88 79 Brachial] Heart Rate [ Sitting (After 1 Minute)] Heart Rate [ Standing (After 1 Minute)] Heart Rate [ Supine] Respiratory Rate Blood Pressure 143/124 H Blood Pressure 143/124 H 145/100 H 163/135 H [Left Brachial artery] Blood Pressure [Right Brachial artery] Blood Pressure [Sitting (After 1 Minute)] Blood Pressure [Standing ( After 1 Minute) ] Blood Pressure [Supine] O2 Saturation 09/28/18 09/28/18 09/28/18 16:00 17:15 18:45 Temperature 35.7 C L 36.3 C L Heart Rate [ 91 109 H 92 Brachial] Heart Rate [ Sitting (After 1 Minute)] Heart Rate [ Standing (After 1 Minute)] Heart Rate [ Supine] Respiratory 20 20 20 Rate Blood Pressure Blood Pressure 153/94 H 142/86 H [Left Brachial artery] Blood Pressure 156/123 H [Right Brachial artery] Blood Pressure [Sitting (After 1 Minute)] Blood Pressure [Standing ( After 1 Minute) ] Blood Pressure [Supine] O2 Saturation 100 97 96 09/28/18 09/29/18 09/29/18 23:09 05:00 08:39 Temperature 36.4 C L 36.6 C 36.8 C Heart Rate [ 80 87 87 Brachial] Heart Rate [ Sitting (After 1 Minute)] Heart Rate [ Standing (After 1 Minute)] Heart Rate [ Supine] Respiratory 20 18 20 Rate Blood Pressure Blood Pressure 144/69 H [Left Brachial artery] Blood Pressure 176/94 H 153/81 H [Right Brachial artery] Blood Pressure [Sitting (After 1 Minute)] Blood Pressure [Standing ( After 1 Minute) ] Blood Pressure [Supine] O2 Saturation 96 95 97 09/29/18 11:53 Temperature Heart Rate [ Brachial] Heart Rate [ 79 Sitting (After 1 Minute)] Heart Rate [ 113 H Standing (After 1 Minute)] Heart Rate [ 74 Supine] Respiratory Rate Blood Pressure Blood Pressure [Left Brachial artery] Blood Pressure [Right Brachial artery] Blood Pressure 156/79 H [Sitting (After 1 Minute)] Blood Pressure 171/145 H [Standing ( After 1 Minute) ] Blood Pressure 174/74 H [Supine] O2 Saturation Oxygen O2 Source Room air I&O (Last 24 Hrs): Intake and Output Totals x24h 09/27/18 09/28/18 09/29/18 23:59 23:59 23:59 Intake Total 4089.2 1879.2 745.000 Output Total 100 Balance 4089.2 1779.2 745.000 General: Alert, No acute distress HEENT: Mucous membr. moist/pink Neck: Supple, No JVD Neuro: Alert, Non Focal Cardiovascular: No murmurs Respiratory: No respiratory distress, Breath sounds nml Abdomen: Soft Extremities: No edema, Other (Multiple ecchymoses) - Results Results: Laboratory Results WBC 6.1 x10^3/uL (4.8-10.8) 09/29/18 05:21 RBC 3.68 10^6/uL (4.20-5.40) L 09/29/18 05:21 Hgb 11.3 g/dL (12.0-16.0) L 09/29/18 05:21 Hct 34.0 % (37.0-47.0) L 09/29/18 05:21 MCV 92.4 fL (81.0-99.0) 09/29/18 05:21 MCH 30.7 pg (27.0-31.0) 09/29/18 05:21 MCHC 33.2 g/dL (32.0-36.0) 09/29/18 05:21 RDW 15.6 % (12.0-15.0) H 09/29/18 05:21 Plt Count 153 10^3/uL (130-450) 09/29/18 05:21 MPV 9.4 fL (7.9-10.8) 09/29/18 05:21 Neut # (Auto) 4.9 10^3/uL (1.5-6.6) 09/29/18 05:21 Lymph # (Auto) 0.6 10^3/uL (1.5-3.5) L 09/29/18 05:21 [place] # (Auto) 0.6 10^3/uL (0.0-1.0) 09/29/18 05:21 Eos # (Auto) 0.0 10^3/uL (0.0-0.7) 09/29/18 05:21 Baso # (Auto) 0.0 10^3/uL (0.0-0.1) 09/29/18 05:21 Absolute Nucleated RBC 0.00 x10^3/uL 09/29/18 05:21 Nucleated RBC % 0.0 /100WBC 09/29/18 05:21 PT 11.3 secs (9.9-12.6) 09/26/18 11:10 INR 1.0 (0.8-1.2) 09/26/18 11:10 Sodium 140 mmol/L (135-145) 09/29/18 05:21 Potassium 3.4 mmol/L (3.5-5.0) L 09/29/18 05:21 Chloride 103 mmol/L (101-111) 09/29/18 05:21 Carbon Dioxide 21 mmol/L (21-32) 09/29/18 05:21 Anion Gap 16.0 (6-13) H 09/29/18 05:21 BUN 18 mg/dL (6-20) 09/29/18 05:21 Creatinine 0.7 mg/dL (0.4-1.0) 09/29/18 05:21 Estimated GFR (MDRD) 79 (>89) L 09/29/18 05:21 Glucose 124 mg/dL (70-100) H 09/29/18 05:21 POC Whole Bld Glucose 100 mg/dL (70 - 100) 09/26/18 13:32 Lactic Acid 0.9 mmol/L (0.5-2.2) 09/26/18 11:57 Calcium 8.3 mg/dL (8.5-10.3) L 09/29/18 05:21 Phosphorus 2.2 mg/dL (2.5-4.6) L 09/29/18 05:21 Magnesium 1.7 mg/dL (1.7-2.8) 09/27/18 05:40 Iron 63 ug/dL (28-170) 09/26/18 11:20 TIBC 328 ug/dL (250-450) 09/26/18 11:20 % Saturation 19 % (20-50) L 09/26/18 11:20 Transferrin 234 mg/dL (192-382) 09/26/18 11:20 Total Bilirubin 1.0 mg/dL (0.2-1.0) 09/28/18 05:21 Direct Bilirubin 0.2 mg/dL (0.1-0.5) 09/28/18 05:21 AST 45 IU/L (10-42) H 09/28/18 05:21 ALT 17 IU/L (10-60) 09/28/18 05:21 Alkaline Phosphatase 71 IU/L (42-121) 09/28/18 05:21 Total Protein 6.7 g/dL (6.7-8.2) 09/28/18 05:21 Albumin 2.9 g/dL (3.2-5.5) L 09/29/18 05:21 Globulin 3.7 g/dL (2.1-4.2) 09/28/18 05:21 Albumin/Globulin Ratio 1.0 (1.0-2.2) 09/26/18 11:10 Triglycerides 67 mg/dL (-149) 09/27/18 05:32 Cholesterol 173 mg/dL (-199) 09/27/18 05:32 LDL Cholesterol, Calc 48 mg/dL (-129) 09/27/18 05:32 VLDL Cholesterol 13 mg/dL 09/27/18 05:32 HDL Cholesterol 112 mg/dL (60-) 09/27/18 05:32 LDL/HDL Ratio 0.4 (<4.4) 09/27/18 05:32 Cholesterol/HDL Ratio 1.5 (<4.4) 09/27/18 05:32 Lipase 36 U/L (22-51) 09/26/18 11:10 Vitamin B12 361 pg/mL (180-914) 09/26/18 11:20 Folate 19.33 ng/mL (5.90 - >24.8) 09/26/18 11:20 TSH 4.42 uIU/mL (0.34-5.60) 09/26/18 11:20 Urine Color YELLOW 09/27/18 19:47 Urine Clarity CLEAR (CLEAR) 09/27/18 19:47 Urine pH 6.0 PH (5.0-7.5) 09/27/18 19:47 Ur Specific [place] 1.015 (1.002-1.030) 09/27/18 19:47 Urine Protein 30 mg/dL (NEGATIVE) H 09/27/18 19:47 Urine Glucose (UA) NEGATIVE mg/dL (NEGATIVE) 09/27/18 19:47 Urine Ketones 15 mg/dL (NEGATIVE) H 09/27/18 19:47 Urine Occult Blood SMALL (NEGATIVE) H 09/27/18 19:47 Urine Nitrite NEGATIVE (NEGATIVE) 09/27/18 19:47 Urine Bilirubin NEGATIVE (NEGATIVE) 09/27/18 19:47 Urine Urobilinogen 0.2 (NORMAL) E.U./dL (NORMAL) 09/27/18 19:47 Ur Leukocyte Esterase NEGATIVE (NEGATIVE) 09/27/18 19:47 Urine RBC 0-5 /HPF (0-5) 09/27/18 19:47 Urine WBC 6-10 /HPF (0-5) H 09/27/18 19:47 Ur Epithelial Cells FEW Transitional /HPF (<= Few) 09/26/18 12:15 Ur Squamous Epith Cells MOD Squamous (<= Few) H 09/27/18 19:47 Urine Bacteria None Seen /HPF (None Seen) 09/27/18 19:47 Ur Microscopic Review INDICATED 09/26/18 12:15 Urine Culture Comments NOT INDICATED 09/27/18 19:47 Ethyl Alcohol < 5.0 mg/dL 09/26/18 11:10
[2018-09-29] MEDS: traMADol 50 MG TABLET PO PRN (18:47)
[2018-09-29] MEDS: AZITHROMYCIN INJ 250 MG in SODIUM CHLORIDE 0.9% 250 ML IV SCH (20:53)
[2018-09-29] MEDS: ATORVASTATIN 40 MG TABLET PO SCH (20:53)
[2018-09-29] MEDS: cefTRIAXone 2 GM VIAL IVP SCH (20:54)
[2018-09-30] MEDS: SODIUM CHLORIDE FLUSH 0.9% 10 ML SYRINGE IVP SCH ×2 (01:25→09:30)
[2018-09-30] MEDS: HEPARIN 5,000 UNIT/ML VIAL SUBQ SCH ×3 (06:33→21:28)
[2018-09-30] MEDS: ASPIRIN CHEW 81 MG TABLET PO SCH (08:33)
[2018-09-30] MEDS: ATENOLOL 25 MG TABLET PO SCH (08:33)
[2018-09-30] MEDS: RIVASTIGMINE 1.5 MG CAPSULE PO SCH ×2 (08:33→21:20)
[2018-09-30] MEDS: MEMANTINE 5 MG TABLET PO SCH ×2 (08:33→21:20)
[2018-09-30] MEDS: MAGNESIUM OXIDE 400 MG TABLET PO SCH (08:49)
[2018-09-30] MEDS: FOLIC ACID IV SCH (08:56)
[2018-09-30] MEDS: MULTIVITAMIN IV SCH (08:56)
[2018-09-30] MEDS: MAGNESIUM SULFATE IV SCH (08:56)
[2018-09-30] MEDS: [UNRECOGNIZED DRUG - OTHER] IV SCH (08:56)
[2018-09-30] MEDS: CHOLECALCIFEROL 1,000 UNIT TABLET PO SCH (09:27)
[2018-09-30] MEDS: CALCIUM CARB (OYSTER SHELL) 500 MG TABLET PO SCH ×2 (09:28→21:20)
[2018-09-30] MEDS: LACTOBACILLUS RHAMNOSUS GG CAPSULE PO SCH (09:29)
[2018-09-30] MEDS: FAMOTIDINE 20 MG TABLET PO SCH ×2 (09:29→21:20)
[2018-09-30] MEDS: POLYETHYLENE GLYCOL 3350 17 GM PACKET PO SCH (09:29)
[2018-09-30] MEDS: OMEGA-3 ACID ETHYL ESTERS 1 GM CAPSULE PO SCH (09:29)
[2018-09-30] MEDS: traMADol 50 MG TABLET PO PRN (09:30)
[2018-09-30] MEDS: AZITHROMYCIN 250 MG TABLET PO SCH (11:28)
--- NOTE | 2018-09-30 17:25 | PROVIDER PROGRESS NOTE ---
Assessment/Plan - Problem List (1) Mental status alteration Qualifiers: Altered mental status type: disorientation Qualified Code(s): R41.0 - Disorientation, unspecified Assessment/Plan: Encephalopathy from infection plus Sundowning has improved. (2) Falling episodes Assessment/Plan: PT is needed and plan for [facility] to SNF tomorrow for PT and OT rehab. Postural VS checks can start now. (3) CAP (community acquired pneumonia) Assessment/Plan: Will change to po Zithromax today. Plan a 7 Day total course. (4) Dementia Qualifiers: Dementia type: vascular dementia Assessment/Plan: Stable (5) Aneurysm artery, neck Assessment/Plan: Stable (6) HTN (hypertension) Assessment/Plan: Stable BP on current meds (7) T12 compression fracture Assessment/Plan: Continue PT and meds for pain control. - Current Meds Current Meds: Current Medications Generic Name Dose Route Start Last Admin Trade Name Freq PRN Reason Stop Dose Admin Alendronate Sodium 70 mg 09/27/18 06:30 09/27/18 05:56 Fosamax PO Not Given Mo@0630 ESTELITA Aspirin 81 mg 09/27/18 09:00 09/30/18 08:33 [facility] Aaron Aspirin PO 81 mg DAILY ESTELITA Administration Atenolol 50 mg 09/29/18 09:00 09/30/18 08:33 Tenormin PO 50 mg DAILY ESTELITA Administration Atorvastatin Calcium 40 mg 09/26/18 21:00 09/29/18 20:53 Lipitor PO 40 mg QPM ESTELITA Administration Azithromycin 500 mg 09/30/18 11:00 09/30/18 11:28 Zithromax PO 10/03/18 01:00 500 mg DAILY ESTELITA Administration Calcium Carbonate/Glycine 500 mg 09/26/18 21:00 09/30/18 09:28 Oysco-500 PO 500 mg BID ESTELITA Administration Cholecalciferol 2,000 unit 09/29/18 09:00 09/30/18 09:27 Vitamin D3 PO 2,000 unit DAILY ESTELITA Administration Famotidine 20 mg 09/26/18 21:00 09/30/18 09:29 Pepcid PO Not Given BID ESTELITA Heparin Sodium (Porcine) 5,000 unit 09/26/18 14:00 09/30/18 15:45 SUBQ 5,000 unit TID ESTELITA Administration Lactobacillus Rhamnosus 1 cap 09/27/18 09:00 09/30/18 09:29 Culturelle PO Not Given DAILY ESTELITA Magnesium Oxide 600 mg 09/27/18 08:00 09/30/18 08:49 Mag Ox PO Not Given DAILYWM ESTELITA Memantine 5 mg 09/26/18 21:00 09/30/18 08:33 Namenda PO 5 mg BID ESTELITA Administration Dihdp-2-Eetv Ethyl Esters 1 gm 09/29/18 09:00 09/30/18 09:29 Lovaza PO Not Given DAILY ESTELITA Polyethylene Glycol 17 gm 09/27/18 09:00 09/30/18 09:29 Miralax PO Not Given DAILY ESTELITA Rivastigmine Tartrate 1.5 mg 09/27/18 09:00 09/30/18 08:33 Exelon PO 1.5 mg BID ESTELITA Administration Tramadol HCl 50 mg 09/27/18 07:43 09/30/18 09:30 Ultram PO 50 mg Q6H PRN Administration PAIN - Lab Result Fish Bone Diagrams: 09/29/18 05:21 09/29/18 05:21 - Additional Planning My Orders: My Active Orders 09/30/18 Clinical Swallow Evaluation [ST] Routine 09/30/18 11:00 Azithromycin [Zithromax] 500 mg PO DAILY 10/01/18 08:00 Multivitamin [Theragran] 1 tab PO DAILYWM Subjective - Subjective Patient Reports: Fatigue Objective Vital Signs: Vital Signs - 24 hr 09/29/18 09/29/18 09/29/18 20:08 20:43 23:06 Temperature 36.3 C L 36.5 C Heart Rate [ 80 82 Brachial] Heart Rate [ Sitting (After 1 Minute)] Heart Rate [ Supine] Respiratory 24 20 22 Rate Blood Pressure [Left Brachial artery] Blood Pressure 164/92 H 134/80 H [Right Brachial artery] Blood Pressure [Sitting (After 1 Minute)] Blood Pressure [Supine] O2 Saturation 95 95 09/30/18 09/30/18 09/30/18 05:00 07:35 08:32 Temperature 36.5 C 36.6 C Heart Rate [ 88 85 Brachial] Heart Rate [ Sitting (After 1 Minute)] Heart Rate [ Supine] Respiratory 20 24 Rate Blood Pressure 156/89 H 183/89 H [Left Brachial artery] Blood Pressure 177/102 H [Right Brachial artery] Blood Pressure [Sitting (After 1 Minute)] Blood Pressure [Supine] O2 Saturation 94 95 09/30/18 09/30/18 09/30/18 10:52 13:00 15:50 Temperature 36.2 C L 36.1 C L Heart Rate [ 80 78 Brachial] Heart Rate [ 77 Sitting (After 1 Minute)] Heart Rate [ 76 Supine] Respiratory 20 24 Rate Blood Pressure [Left Brachial artery] Blood Pressure 163/86 H 157/79 H [Right Brachial artery] Blood Pressure 159/82 H [Sitting (After 1 Minute)] Blood Pressure 156/85 H [Supine] O2 Saturation 94 96 Oxygen O2 Source Room air I&O (Last 24 Hrs): Intake and Output Totals x24h 09/28/18 09/29/18 09/30/18 23:59 23:59 23:59 Intake Total 1879.2 2351.600 965 Output Total 100 350 Balance 1779.2 2001.600 965 General: Alert HEENT: Mucous membr. moist/pink Neck: Supple Neuro: Non Focal Cardiovascular: Regular rate Respiratory: No respiratory distress Abdomen: Soft Extremities: Other (Ecchymoses persist) - Results Results: Laboratory Results WBC 6.1 x10^3/uL (4.8-10.8) 09/29/18 05:21 RBC 3.68 10^6/uL (4.20-5.40) L 09/29/18 05:21 Hgb 11.3 g/dL (12.0-16.0) L 09/29/18 05:21 Hct 34.0 % (37.0-47.0) L 09/29/18 05:21 MCV 92.4 fL (81.0-99.0) 09/29/18 05:21 MCH 30.7 pg (27.0-31.0) 09/29/18 05:21 MCHC 33.2 g/dL (32.0-36.0) 09/29/18 05:21 RDW 15.6 % (12.0-15.0) H 09/29/18 05:21 Plt Count 153 10^3/uL (130-450) 09/29/18 05:21 MPV 9.4 fL (7.9-10.8) 09/29/18 05:21 Neut # (Auto) 4.9 10^3/uL (1.5-6.6) 09/29/18 05:21 Lymph # (Auto) 0.6 10^3/uL (1.5-3.5) L 09/29/18 05:21 [place] # (Auto) 0.6 10^3/uL (0.0-1.0) 09/29/18 05:21 Eos # (Auto) 0.0 10^3/uL (0.0-0.7) 09/29/18 05:21 Baso # (Auto) 0.0 10^3/uL (0.0-0.1) 09/29/18 05:21 Absolute Nucleated RBC 0.00 x10^3/uL 09/29/18 05:21 Nucleated RBC % 0.0 /100WBC 09/29/18 05:21 PT 11.3 secs (9.9-12.6) 09/26/18 11:10 INR 1.0 (0.8-1.2) 09/26/18 11:10 Sodium 140 mmol/L (135-145) 09/29/18 05:21 Potassium 3.4 mmol/L (3.5-5.0) L 09/29/18 05:21 Chloride 103 mmol/L (101-111) 09/29/18 05:21 Carbon Dioxide 21 mmol/L (21-32) 09/29/18 05:21 Anion Gap 16.0 (6-13) H 09/29/18 05:21 BUN 18 mg/dL (6-20) 09/29/18 05:21 Creatinine 0.7 mg/dL (0.4-1.0) 09/29/18 05:21 Estimated GFR (MDRD) 79 (>89) L 09/29/18 05:21 Glucose 124 mg/dL (70-100) H 09/29/18 05:21 POC Whole Bld Glucose 100 mg/dL (70 - 100) 09/26/18 13:32 Lactic Acid 0.9 mmol/L (0.5-2.2) 09/26/18 11:57 Calcium 8.3 mg/dL (8.5-10.3) L 09/29/18 05:21 Phosphorus 2.2 mg/dL (2.5-4.6) L 09/29/18 05:21 Magnesium 1.7 mg/dL (1.7-2.8) 09/27/18 05:40 Iron 63 ug/dL (28-170) 09/26/18 11:20 TIBC 328 ug/dL (250-450) 09/26/18 11:20 % Saturation 19 % (20-50) L 09/26/18 11:20 Transferrin 234 mg/dL (192-382) 09/26/18 11:20 Total Bilirubin 1.0 mg/dL (0.2-1.0) 09/28/18 05:21 Direct Bilirubin 0.2 mg/dL (0.1-0.5) 09/28/18 05:21 AST 45 IU/L (10-42) H 09/28/18 05:21 ALT 17 IU/L (10-60) 09/28/18 05:21 Alkaline Phosphatase 71 IU/L (42-121) 09/28/18 05:21 Total Protein 6.7 g/dL (6.7-8.2) 09/28/18 05:21 Albumin 2.9 g/dL (3.2-5.5) L 09/29/18 05:21 Globulin 3.7 g/dL (2.1-4.2) 09/28/18 05:21 Albumin/Globulin Ratio 1.0 (1.0-2.2) 09/26/18 11:10 Triglycerides 67 mg/dL (-149) 09/27/18 05:32 Cholesterol 173 mg/dL (-199) 09/27/18 05:32 LDL Cholesterol, Calc 48 mg/dL (-129) 09/27/18 05:32 VLDL Cholesterol 13 mg/dL 09/27/18 05:32 HDL Cholesterol 112 mg/dL (60-) 09/27/18 05:32 LDL/HDL Ratio 0.4 (<4.4) 09/27/18 05:32 Cholesterol/HDL Ratio 1.5 (<4.4) 09/27/18 05:32 Lipase 36 U/L (22-51) 09/26/18 11:10 Vitamin B12 361 pg/mL (180-914) 09/26/18 11:20 Folate 19.33 ng/mL (5.90 - >24.8) 09/26/18 11:20 TSH 4.42 uIU/mL (0.34-5.60) 09/26/18 11:20 Urine Color YELLOW 09/27/18 19:47 Urine Clarity CLEAR (CLEAR) 09/27/18 19:47 Urine pH 6.0 PH (5.0-7.5) 09/27/18 19:47 Ur Specific [place] 1.015 (1.002-1.030) 09/27/18 19:47 Urine Protein 30 mg/dL (NEGATIVE) H 09/27/18 19:47 Urine Glucose (UA) NEGATIVE mg/dL (NEGATIVE) 09/27/18 19:47 Urine Ketones 15 mg/dL (NEGATIVE) H 09/27/18 19:47 Urine Occult Blood SMALL (NEGATIVE) H 09/27/18 19:47 Urine Nitrite NEGATIVE (NEGATIVE) 09/27/18 19:47 Urine Bilirubin NEGATIVE (NEGATIVE) 09/27/18 19:47 Urine Urobilinogen 0.2 (NORMAL) E.U./dL (NORMAL) 09/27/18 19:47 Ur Leukocyte Esterase NEGATIVE (NEGATIVE) 09/27/18 19:47 Urine RBC 0-5 /HPF (0-5) 09/27/18 19:47 Urine WBC 6-10 /HPF (0-5) H 09/27/18 19:47 Ur Epithelial Cells FEW Transitional /HPF (<= Few) 09/26/18 12:15 Ur Squamous Epith Cells MOD Squamous (<= Few) H 09/27/18 19:47 Urine Bacteria None Seen /HPF (None Seen) 09/27/18 19:47 Ur Microscopic Review INDICATED 09/26/18 12:15 Urine Culture Comments NOT INDICATED 09/27/18 19:47 Ethyl Alcohol < 5.0 mg/dL 09/26/18 11:10
[2018-09-30] MEDS: ATORVASTATIN 40 MG TABLET PO SCH (21:20)
[2018-10-01] MEDS: HEPARIN 5,000 UNIT/ML VIAL SUBQ SCH (05:50)
[2018-10-01] MEDS ORDERED: MULTIVITAMIN TABLET PO SCH (08:00)
[2018-10-01] MEDS: CHOLECALCIFEROL 1,000 UNIT TABLET PO SCH (08:24)
[2018-10-01] MEDS: ATENOLOL 25 MG TABLET PO SCH (08:24)
[2018-10-01] MEDS: ASPIRIN CHEW 81 MG TABLET PO SCH (08:24)
[2018-10-01] MEDS: MAGNESIUM OXIDE 400 MG TABLET PO SCH (08:24)
[2018-10-01] MEDS: AZITHROMYCIN 250 MG TABLET PO SCH (08:24)
[2018-10-01] MEDS: CALCIUM CARB (OYSTER SHELL) 500 MG TABLET PO SCH (08:24)
[2018-10-01] MEDS: MEMANTINE 5 MG TABLET PO SCH (08:25)
[2018-10-01] MEDS: RIVASTIGMINE 1.5 MG CAPSULE PO SCH (08:25)
[2018-10-01] MEDS: FAMOTIDINE 20 MG TABLET PO SCH (08:25)
[2018-10-01] MEDS: LACTOBACILLUS RHAMNOSUS GG CAPSULE PO SCH (08:25)
[2018-10-01] MEDS: POLYETHYLENE GLYCOL 3350 17 GM PACKET PO SCH (08:25)
[2018-10-01] MEDS: OMEGA-3 ACID ETHYL ESTERS 1 GM CAPSULE PO SCH (10:13)
--- NOTE | 2018-10-01 11:03 | Discharge Plan ---
"Discharge Plan for SNF / [facility] - Discharge Plan And Transition Orders Disposition: 03 SNF DC/Xfer Condition: Stable Allergies and Adverse Reactions: Allergies Allergy/AdvReac Type Severity Reaction Status Date / Time lorazepam AdvReac Anxiety Verified 09/29/18 04:03 - SNF / [facility] Transition Orders Admit to (Facility): [facility] Discharge Diagnosis: (1) Metabolic encephalopathy - behavioral disturbance resolved (2) Falling episodes - resulted in a scalp and hand hematoma (3) CAP (community acquired pneumonia), LLL, uncomplicated - completing treatment (4) Dementia (vascular dementia) - stable, poor memory and gait (5) 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 Notify PCP of admission and forward orders to primary provider for signature. Weight on admission and: Weekly Call PCP immediately if weight increases by: 5 kg Other Notification Orders: Call PCP immediately if patient develops dyspnea, chest pain/tightness or edema. House Bowel Program: Yes Additional Bowel Program Orders: If no BM after 2 days, nurse may give M.O.M. 30ml PO PRN and/or ducolax Supp 1 [place] and/or JOE 250mg P.O., and/or senna 1-2 tabs PO. On day 3 nurse may give repeat above order until residents constipation is resolved. Annual Influenza Vaccine (between Jan 23 and August 22): Yes Two-step PPD per [facility] [phone] or approved exception documents: Yes Treatments & Other Orders: Daily PT and OT Oxygen Orders: None Medication Orders: PLEASE REFER TO THE DISCHARGE MEDICATION LIST. Insulin Orders?: No - Medications New Prescriptions: Atorvastatin [Lipitor] 40 mg PO QPM #30 tablet Azithromycin [Zithromax] 500 mg PO DAILY #6 tablet Lactobacillus Rhamnosus GG [Culturelle] 1 cap PO DAILY #6 capsule Magnesium Oxide [Mag Ox] 600 mg PO DAILYWM #45 tablet Memantine [Namenda] 5 mg PO BID #60 tablet Multivitamin [Theragran] 1 tab PO DAILYWM #30 tablet - Diet Type: No added salt Texture: [facility] soft Liquids: [place] thick Supplements: Ensure 4oz tid w/ meals. Please crush all medications & give in applesauce. May have monthly special meal: Yes - Therapies | Activity Therapy: Evaluation | Treat if indicated: PT, OT, Swallowing / ST Rehabilitation Potential: Maximize functional status Activity: Activity as Tolerated Weight Bearing: Full Weight Assistance Devices: Walker Follow Up: F/U with Dr Manzanares after [facility] from SNF"
[2018-10-01 12:02] VITALS: BP 149/83
--- NOTE | 2018-10-06 15:32 | DISCHARGE SUMMARY ---
Physician: Tory Duffy MD DATE OF ADMISSION: 09/26/2018 DATE OF DISCHARGE: 10/01/2018 HISTORY OF PRESENT ILLNESS: This is an 87-year-old, white female with history of hypertension, cataracts, and poor vision, dementia, with short-term memory problems, who lives at home. She lives with her , and her daughter checks on her frequently. The and daughter noticed the patient had 3 days of being more confused, speaking in incomplete sentences, having worse balance even though she used a walker, and she suffered 5-6 falls over 2 days. She was brought to the emergency room. She had hit the back of her head, her right hand, her mid back, and her left thigh. She was found to be weak, confused, had a nonfocal neurologic exam, and was found to have pneumonia on imaging. HOSPITAL COURSE AND DISCHARGE DIAGNOSES 1. Metabolic encephalopathy. Patient underwent a head CT, which showed no acute intracranial abnormality or fracture. There was also parenchymal volume loss and chronic white matter changes. A CTA of the head and neck showed no large vessel occlusion, mild stenosis of the left ICA, outpouching of the supraclinoid right ICA, which measured 3 x 4 mm, consistent with an aneurysm. Her confusion continued, and she was fidgety, agitated and had insomnia. There was description of previous heavy alcohol use. Therefore, she was put on a CIWA protocol. The , later reported that they both were previous heavy drinkers, then decreased to drinking wine daily, and then nonalcoholic wine over the past 6 months. The CIWA protocol was therefore stopped, but she did get 1 dose of IV Ativan on the second day of hospitalization, which did allow her to sleep through the night and, when she awoke, she was alert and at her baseline mental status. The confusion and altered mental status were therefore felt to be from her underlying infection (see below). 2. Falling episodes. Patient underwent a head CT, which showed no acute intracranial abnormality or fracture, but there was a right parietal scalp edema where she had a hematoma of the scalp. Also, x-rays were done of the left femur and right hand. There were no fractures of the left leg, but a fracture was seen of the fifth metacarpal neck of the right hand. She also had the scalp hematoma and right hand hematoma. When her mental status improved, orthostatic vital signs were checked and were not abnormal. She was seen by Physical Therapy and deemed to have a poor underlying gait, which was probably her baseline. The patient qualified to be transferred to half-way facility for rehabilitation with PT and OT. She was transferred to the [facility] by BLS transport. 3. Community-acquired pneumonia. The patient's admission chest x-ray showed a left lower lobe infiltrate. She had no complaints of shortness of breath and had no cough during the entire stay. Blood cultures were done and were negative, and she never produced a sputum culture. She was treated empirically with IV Zithromax and IV Ceftriaxone. She was discharged with p.o. antibiotics to complete a 7-day total course of antibiotics. 4. Dementia (vascular type). When her metabolic encephalopathy resolved, she had a stable, but abnormal poor memory and poor gait. She needed to be fed and was on a dysphagia soft diet. 5. 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 The patient was on aspirin daily, omega-3 and niacin, as well as Lipitor daily. She was not a candidate for any intervention, such as surgery to the intracranial vascular aneurysm. 6. Hypertension. Patient's vital signs were never hypotensive. She was kept on her blood pressure medications while here. 7. Chronic T12 compression fracture. Imaging of the chest revealed the T12 compression fracture, which was not acute. She required minimal p.r.n. pain medications. 8. Poor vision due to cataracts. This also undoubtedly added to her falls and may need attention. 9. Electrolyte disturbance. During her stay, there were signs of hypomagnesemia, hypokalemia and hyponatremia; these were treated with replacement and with iv saline. At discharge, her sodium was 140. LABORATORIES AND IMAGING: Reviewed and summarized above. ALLERGIES: LORAZEPAM. MEDICATIONS AT THE TIME OF DISCHARGE 1. Lipitor 40 mg q.p.m. 2. Zithromax 500 mg daily for 3 more days. 3. Culturelle 1 tablet daily for 3 days. 4. Magnesium oxide 600 mg daily for a month. 5. Namenda 5 mg b.i.d. 6. Multivitamin daily. 7. Ultram 50 mg q.6 hours p.r.n. pain. 8. Exelon patch topically daily. 9. [place]-3 tablet daily. 10. Niacin 500 mg daily. 11. Conjugated estrogen 0.625 mg daily. 12. Vitamin D3 at 2000 units daily. 13. Atenolol 50 mg daily. 14. Aspirin 81 mg daily. 15. Fosamax 70 mg every month. CONDITION AT DISCHARGE: Stable. PHYSICAL EXAMINATION VITAL SIGNS: Blood pressure 149/83, pulse of 82, in sinus rhythm, afebrile, room air saturation 95%. HEENT: Diminished vision, poor dentition, but oral mucosa was moist. NECK: Without JVD or carotid bruits. CHEST: Clear. HEART: Heart sounds normal, distant. ABDOMEN: Soft with normal bowel sounds. No organomegaly. EXTREMITIES: No edema. The right wrist had a large hematoma. NEUROLOGIC: As described above. FOLLOWUP: This will be determined after her stay at SNF. CODE STATUS: DNR. TIME REQUIRED TO COMPLETE DISCHARGE, CHART REVIEW, PRESCRIPTION ORDERS, AND HALFWAY FACILITY ORDERS: 60 minutes. cc: Samuel Manzanares MD TD: 10/06/2018 13:48 REVISED 10/12/2018 [facility] ADDENDUM-CORRECTION TO #2 ORIG. signed 10/07/18@0925 #2 in HOSPITAL COURSE AND DISCHARGE DIAGNOSES should read : 2. Falling episodes. Patient underwent a head CT, which showed no acute intracranial abnormality or fracture, but there was a right parietal scalp edema where she had hematoma of the scalp. Also, x-rays were done of the left femur and right hand. There were no fractures of the left leg, but a fracture was seen of the fifth metacarpal neck of the right hand. She also had the scalp hematoma and right hand hematoma. When her mental status improved, orthostatic vital signs were checked and were not abnormal. She was seen by Physical Therapy and deemed to have a poor underlying gait, which was probably her baseline. The patient qualified to be transferred to half-way facility for rehabilitation with PT and OT. She was transferred to the [facility] by BLS transport. TD: 10/12/2018 10:07 MTDD
== END 2018-10-01 13:22 | DRG 70 ==
LOC: ED 10:12 → MS2 13:18
PROVIDERS: ADMIT Family Medicine; ATTEND Internal Medicine
DX: R41.0 Disorientation, unspecified (principal); G93.41 Metabolic encephalopathy; J18.1 Lobar pneumonia, unspecified organism; S79.922A Unspecified injury of left thigh, initial encounter; W19.XXXA Unspecified fall, initial encounter; E87.1 Hypo-osmolality and hyponatremia; R40.2412 Glasgow coma scale score 13-15, at arrival to emergency department; M48.54XA Collapsed vertebra, not elsewhere classified, thoracic region, initial encounter for fracture; F01.51 Vascular dementia, unspecified severity, with behavioral disturbance; R53.1 Weakness; F05 Delirium due to known physiological condition; M25.562 Pain in left knee; M85.841 Other specified disorders of bone density and structure, right hand; M19.041 Primary osteoarthritis, right hand; M19.031 Primary osteoarthritis, right wrist; R91.8 Other nonspecific abnormal finding of lung field; E83.42 Hypomagnesemia; F03.90 Unspecified dementia, unspecified severity, without behavioral disturbance, psychotic disturbance, mood disturbance, and anxiety; E87.6 Hypokalemia; S62.336A Displaced fracture of neck of fifth metacarpal bone, right hand, initial encounter for closed fracture; S00.03XA Contusion of scalp, initial encounter; S50.11XA Contusion of right forearm, initial encounter; Z87.440 Personal history of urinary (tract) infections; W18.30XA Fall on same level, unspecified, initial encounter; Y92.009 Unspecified place in unspecified non-institutional (private) residence as the place of occurrence of the external cause; I67.2 Cerebral atherosclerosis; I25.10 Atherosclerotic heart disease of native coronary artery without angina pectoris; R26.89 Other abnormalities of gait and mobility; G47.00 Insomnia, unspecified; D53.9 Nutritional anemia, unspecified; F41.9 Anxiety disorder, unspecified; R13.12 Dysphagia, oropharyngeal phase; I11.9 Hypertensive heart disease without heart failure; R06.89 Other abnormalities of breathing; T42.4X5A Adverse effect of benzodiazepines, initial encounter; Y92.230 Patient room in hospital as the place of occurrence of the external cause; I72.0 Aneurysm of carotid artery; M85.88 Other specified disorders of bone density and structure, other site; H26.9 Unspecified cataract; H54.7 Unspecified visual loss; K80.20 Calculus of gallbladder without cholecystitis without obstruction; Z66 Do not resuscitate; Z96.649 Presence of unspecified artificial hip joint; Z87.898 Personal history of other specified conditions; Z91.81 History of falling; Z79.82 Long term (current) use of aspirin; Z79.899 Other long term (current) drug therapy
CPT/HCPCS: 36415; 70450; 70496; 70498; 71250; 73130; 73552; 80053; 80061; 80069; 80076; 81001; 82607; 82746; 83540; 83605; 83690; 83735; 84443; 84466; 85025; 85610; 87040; 92507; 92526; 92610; 93005; 93306; 96360; 97116; 97161; 97165; 97530; 97535; 99283; 99285; A9270; J0131; J2060; J3411; J7040; J7120; Q9967; 80320; 81003; 82274; 83721; 87086; 99284

== ENCOUNTER 2019-06-05 12:51 | Outpatient (CLI) | payer MEDICARE, OTHER | END 2019-06-05 12:52 | disposition critical access hospital (66) | LOC: EMS 12:51 | PROVIDERS: ATTEND Surgery | DX: R53.1 Weakness (principal); R50.9 Fever, unspecified | CPT/HCPCS: A0425; A0429 ==

== ENCOUNTER 2019-06-05 13:06 | Inpatient (IN) | payer MEDICARE, OTHER ==
[2019-06-05 15:25] LABS: BASOPHILS % (AUTO) 0.4 %; EOSINOPHILS # (AUTO) 0.1 10^3/uL (0.0-0.7); EOSINOPHILS % (AUTO) 1.1 %; HGB - HEMOGLOBIN 10.8 g/dL (12.0-16.0); LYMPHOCYTES # (AUTO) 0.5 10^3/uL (1.5-3.5); LYMPHOCYTES % (AUTO) 4.3 %; MEAN CORPUSCULAR HEMOGLOBIN 28.7 pg (27.0-31.0); MEAN CORPUSCULAR VOLUME 89.6 fL (81.0-99.0); MEAN PLATELET VOLUME 11.2 fL (7.9-10.8); MONOCYTES # (AUTO) 0.8 10^3/uL (0.0-1.0); MONOCYTES % (AUTO) 7.3 %; NEUTROPHILS # (AUTO) 9.8 10^3/uL (1.5-6.6); NEUTROPHILS % (AUTO) 86.4 %; PLT - PLATELET COUNT 180 10^3/uL (130-450); RED BLOOD COUNT 3.76 10^6/uL (4.20-5.40); RED CELL DISTRIBUTION WIDTH 16.4 % (12.0-15.0); WHITE BLOOD COUNT 11.3 x10^3/uL (4.8-10.8)
[2019-06-05] MEDS ORDERED: SODIUM CHLORIDE 0.9% 1,000 ML IV ONE (15:37)
[2019-06-05 15:39] LABS: ALBUMIN 3.2 g/dL (3.2-5.5); ALBUMIN/GLOBULIN RATIO 0.8 (1.0-2.2); BILIRUBIN,TOTAL 0.7 mg/dL (0.2-1.0); CALCIUM 8.9 mg/dL (8.5-10.3); TOTAL PROTEIN 7.2 g/dL (6.7-8.2)
[2019-06-05 15:39] LABS: BILIRUBIN,URINE NEGATIVE (NEGATIVE); GLUCOSE, URINE (UA) NEGATIVE (NEGATIVE); KETONES,URINE (UA) NEGATIVE (NEGATIVE); LEUKOCYTE ESTERASE, URINE TRACE (NEGATIVE); NITRITE,URINE NEGATIVE (NEGATIVE); OCCULT BLOOD,URINE SMALL (NEGATIVE); PROTEIN,URINE >=300 mg/dL (NEGATIVE); UROBILINOGEN,URINE 0.2 (NORMAL) E.U./dL (NORMAL)
--- NOTE | 2019-06-05 15:41 | XRAY Report ---
Reason: fever Procedure Date: 06/05/2019 Accession Number: [id number] / [id number] Procedure: XR - Chest 2 View X-Ray CPT Code: 31879 Final Report FULL RESULT: EXAM: CHEST RADIOGRAPHY EXAM DATE: 06/05/2019 03:03 PM. CLINICAL HISTORY: Fever. COMPARISON: Chest CT from 09/26/2018. TECHNIQUE: 2 views. FINDINGS: Lungs/Pleura: No focal airspace opacity. No pleural effusion or pneumothorax. Mediastinum: Small hiatal hernia is demonstrated. Cardiac silhouette is mildly enlarged. Mediastinal contour is otherwise within normal limits. Pulmonary vasculature is unremarkable. Other: Multilevel degenerative changes are present in the thoracic spine there appears to be compression fracture at T12, progressed since the prior examination. IMPRESSION: 1. No acute cardiopulmonary abnormality. 2. Progression in T12 compression fracture since the prior CT of 09/26/2018. RADIA
[2019-06-05 15:42] LABS: CLARITY,URINE SL. CLOUDY (CLEAR)
[2019-06-05 15:53] LABS: BACTERIA,URINE Many /HPF (None Seen); RBC,URINE 0-5 /HPF (0-5); SQUAMOUS EPITHELIAL CELL,UR RARE Squamous (<= Few)
--- NOTE | 2019-06-05 16:18 | ED Physician Documentation ---
PD HPI FEVER - Stated complaint Stated Complaint: FLU SX - Chief complaint Chief Complaint: General - History obtained from History obtained from: Patient, Family - History of Present Illness Timing - onset: Today Timing duration: Hours Timing details: Gradual onset, Still present Associated symptoms: Chills, Sweats, Dry cough Similar symptoms before: Has not had sx before Recently seen: Not recently seen - Additional information Additional information: 88-year-old female with a history of dementia had is a resident of [facility] and she has developed a fever today. Her accompanies her here to the emergency department today and states that she fell asleep very quickly yesterday when he went to go visit her today she is complaining of chills and has a fever. The patient herself has no other specific complaints she does have a mild cough and some congestion. Review of Systems Constitutional: reports: Fever, Chills, Fatigue, Sweats Eyes: denies: Decreased vision Ears: denies: Ear pain Nose: reports: Congestion. denies: Rhinorrhea / runny nose Throat: denies: Sore throat Cardiac: denies: Chest pain / pressure, Palpitations Respiratory: reports: Cough. denies: Dyspnea GI: denies: Abdominal Pain, Nausea, Vomiting : denies: Dysuria, Frequency Skin: denies: Rash Musculoskeletal: denies: Neck pain, Back pain, Extremity pain Neurologic: reports: Generalized weakness. denies: Focal weakness, Numbness PD PAST MEDICAL HISTORY - Past Medical History Past Medical History: Yes Cardiovascular: Hypertension Respiratory: None Neuro: Dementia Endocrine/Autoimmune: None GI: None : Incontinence Psych: None Musculoskeletal: Osteoporosis Derm: Other - Past Surgical History Past Surgical History: Yes Ortho: Hip replacement HEENT: Cataracts - Present Medications Home Medications: Ambulatory Orders Medication Instructions Recorded Confirmed Alendronate [Fosamax] 70 mg PO MO 09/26/18 06/01/19 Aspirin 81 mg PO DAILY 09/26/18 06/01/19 Cholecalciferol (Vitamin D3) 2,000 unit PO DAILY 09/26/18 06/01/19 [Vitamin D3] Estrogens, Conjugated [Premarin] 0.625 mg PO DAILY 09/26/18 06/01/19 Niacin [Niacin ER] 500 mg PO DAILY 09/26/18 06/01/19 [place]-3 Fatty Acids/Fish Oil 1,000 mg PO DAILY 09/26/18 06/01/19 [[place]-3 Fish Oil 1,000 mg Sfgl] Rivastigmine [Exelon 4.6MG] 1 patch TD DAILY 09/26/18 06/01/19 atenoloL [Atenolol] 50 mg PO DAILY 09/26/18 06/01/19 traMADol [Ultram] 50 mg PO Q6H PRN 09/26/18 06/01/19 Atorvastatin [Lipitor] 40 mg PO QPM #30 tablet 10/01/18 06/01/19 Azithromycin [Zithromax] 500 mg PO DAILY #6 tablet 10/01/18 06/01/19 Lactobacillus Rhamnosus GG 1 cap PO DAILY #6 capsule 10/01/18 06/01/19 [Culturelle] Magnesium Oxide [Mag Ox] 600 mg PO DAILYWM #45 tablet 10/01/18 06/01/19 Memantine [Namenda] 5 mg PO BID #60 tablet 10/01/18 06/01/19 Multivitamin [Theragran] 1 tab PO DAILYWM #30 tablet 10/01/18 06/01/19 - Allergies Allergies/Adverse Reactions: Allergies Allergy/AdvReac Type Severity Reaction Status Date / Time No Known Drug Allergies Allergy Verified 06/05/19 13:12 - Social History Does the pt smoke?: No Smoking Status: Never smoker Does the pt drink ETOH?: Yes Does the pt have substance abuse?: No - Immunizations Immunizations are current?: Yes - POLST Patient has POLST: Yes PD ED PE NORMAL - Vitals Vital signs reviewed: Yes (Febrile tachycardic and hypertensive.) - General General: No acute distress, Well developed/nourished, Other (88-year-old pleasantly demented female who is warm to the touch.) - HEENT HEENT: Atraumatic, PERRL, EOMI, Other (Both TMs are obscured by cerumen. The mucous membranes are dry.) - Neck Neck: Supple, no meningeal sign, No bony TTP - Cardiac Cardiac: No murmur, Other (Tachycardia to 110) - Respiratory Respiratory: No respiratory distress, Clear bilaterally, Other (Diminished breath sounds bilaterally) - Abdomen Abdomen: Soft, Non tender - Back Back: No CVA TTP, No spinal TTP - Derm Derm: Normal color, Warm and dry, No rash - Extremities Extremities: No deformity, No edema - Neuro Neuro: ceo [place] 2-12 intact, No motor deficit, No sensory deficit, Normal speech Eye Opening: Spontaneous Motor: Obeys Commands Verbal: Oriented GCS Score: 15 - Psych Psych: Normal mood, Normal affect Results - Vitals Vitals: Vital Signs - 24 hr 06/05/19 06/05/19 13:12 16:06 Temperature 38.9 C H Heart Rate 107 H 75 Respiratory 14 16 Rate Blood Pressure 144/71 H 110/71 O2 Saturation 94 97 Oxygen O2 Source Room air - Labs Labs: Laboratory Tests 06/05/19 06/05/19 06/05/19 13:48 15:20 15:20 WBC 11.3 H RBC 3.76 L Hgb 10.8 L Hct 33.7 L MCV 89.6 MCH 28.7 MCHC 32.0 RDW 16.4 H Plt Count 180 MPV 11.2 H Neut # (Auto) 9.8 H Lymph # (Auto) 0.5 L [place] # (Auto) 0.8 Eos # (Auto) 0.1 Baso # (Auto) 0.0 Absolute Nucleated RBC 0.00 Nucleated RBC % 0.0 Sodium 133 L Potassium 3.3 L Chloride 96 L Carbon Dioxide 25 Anion Gap 12.0 BUN 18 Creatinine 1.0 Estimated GFR (MDRD) 52 L Glucose 143 H Lactic Acid Calcium 8.9 Total Bilirubin 0.7 AST 51 H ALT 22 Alkaline Phosphatase 129 H Total Protein 7.2 Albumin 3.2 Globulin 4.0 Albumin/Globulin Ratio 0.8 L Lipase 29 Urine Color Urine Clarity Urine pH Ur Specific Hardy Urine Protein Urine Glucose (UA) Urine Ketones Urine Occult Blood Urine Nitrite Urine Bilirubin Urine Urobilinogen Ur Leukocyte Esterase Urine RBC Urine WBC Ur Squamous Epith Cells Urine Bacteria Ur Microscopic Review Urine Culture Comments Influenza A (Rapid) Negative Influenza B (Rapid) Negative 06/05/19 06/05/19 15:20 15:28 WBC RBC Hgb Hct MCV MCH MCHC RDW Plt Count MPV Neut # (Auto) Lymph # (Auto) [place] # (Auto) Eos # (Auto) Baso # (Auto) Absolute Nucleated RBC Nucleated RBC % Sodium Potassium Chloride Carbon Dioxide Anion Gap BUN Creatinine Estimated GFR (MDRD) Glucose Lactic Acid 1.6 Calcium Total Bilirubin AST ALT Alkaline Phosphatase Total Protein Albumin Globulin Albumin/Globulin Ratio Lipase Urine Color YELLOW Urine Clarity SL. CLOUDY Urine pH 6.0 Ur Specific Hardy 1.025 Urine Protein >=300 H Urine Glucose (UA) NEGATIVE Urine Ketones NEGATIVE Urine Occult Blood SMALL H Urine Nitrite NEGATIVE Urine Bilirubin NEGATIVE Urine Urobilinogen 0.2 (NORMAL) Ur Leukocyte Esterase TRACE H Urine RBC 0-5 Urine WBC 6-10 H Ur Squamous Epith Cells RARE Squamous Urine Bacteria Many H Ur Microscopic Review INDICATED Urine Culture Comments INDICATED Influenza A (Rapid) Influenza B (Rapid) - Rads (name of study) Chest x-ray Radiology: Prelim report reviewed, EMP read indepedently, See rad report PD MEDICAL DECISION MAKING - ED course Complexity details: reviewed old records, reviewed results, re-evaluated patient, considered differential, d/w patient, d/w family ED course: 88-year-old female with advancing dementia has had a fever and decreased activity. She is tachycardic appears dry and her flu swab was negative. She does have evidence of urinary tract infection and she is administered saline and Rocephin and the hospitalist is consulted for admission. Departure - Departure Disposition: [facility] DC/Xfer Clinical Impression: Mental status alteration Qualifiers: Altered mental status type: disorientation Qualified Code(s): R41.0 - Disorientation, unspecified Urinary tract infection Qualifiers: Urinary tract infection type: acute cystitis Hematuria presence: without hematuria Qualified Code(s): N30.00 - Acute cystitis without hematuria
[2019-06-05] MEDS ORDERED: cefTRIAXone 1 GM in SODIUM CHLORIDE 0.9% MINIBAG 100 ML IV STA (16:32)
[2019-06-05] MEDS ORDERED: SODIUM CHLORIDE FLUSH 0.9% 10 ML SYRINGE IVP PRN (16:36)
--- NOTE | 2019-06-05 17:10 | PHARMACY PROGRESS NOTE ---
- Best Possible Medication History Admit Date and Time: 06/05/19 1636 Processed by: Pharmacy Medication History completed: Yes Patient Interview: Pt unable to participate Secondary Source(s): Facility MAR as ONLY source As the person ultimately responsible for medication therapy, providers are able to order a medication from an existing home medication list in [facility] via the "Reconcile Routine" prior to Confirmation of that medication by it support engineer. Such practice is discouraged except when the physician, in their clinical judgment, deems that a medical need exists for a medication without regard to previous use.
--- NOTE | 2019-06-05 17:17 | HISTORY & PHYSICAL EXAMINATION ---
Chief Complaint - Chief Complaint Chief Complaint: lethargy, N/V/D, fever History of Present Illness - Admitted From Admitted From:: ED - History Obtained From Records Reviewed: yes History obtained from: [facility] staffing administrator Exam Limitations: baseline dementia, confusion - History of Present Illness HPI Comment/Other: Lety Morley is an ill appearing, white, 88-year old female with a past medical history of hypertension, dementia, falls, T12 compression fracture, status post hip replacement, hearing loss, cataracts, urinary incontinence and osteoporosis. She resides at [facility] and was in her usual state of health until this morning when she would not get out of bed, had diarrhea, a fever recorded at 102.4 F orally, had nausea with vomiting and new left sided flank pain. EMS was called and brought her into the ED. Upon arrival, the patient was given IV fluids. Labs showed an elevated WBC count of 11.3, H/H of 10.8/33.7, RDW 16.4, neut # 9.8, sodium 133, potassium 3.3, GFR 52, glucose 143, AST 51, alk phos 129, with no other lab abnormalities. A urine sample showed infection with urine protein greater than 300, trace leukocytes, urine WBC 6-10, and many bacteria. A culture is pending. Vital signs showed an elevated temp of 38.9 C, heart rate 107, B/P 144/71, RR 14, and 94% oxygen saturation on room air. Imaging of her chest shows no acute cardiopulmonary abnormalities, progression of her T12 compression fracture since her prior CT in September 2018. Her caregiver, [facility] staffing administrator, Stacia was with the patient and confirmed the course of events leading to this admission. On my exam, the patient is a poor historian, and will not answer questions. She will be admitted to inpatient for treatment of pyelonephritis given her diarrhea, nausea, vomiting, worsening confusion, left flank pain, lethargy and fevers to be treated with IV antibiotics. History - Past Medical History Cardiovascular: reports: Hypertension, High cholesterol, Murmur Respiratory: reports: None Neuro: reports: Alzhiemer's, Dementia, Peripheral neuropathy Endocrine/Autoimmune: reports: None GI: reports: GERD ROTARY SHEAR OPERATOR: reports: None : reports: Incontinence, Frequency HEENT: reports: Chronic vision loss, Chronic hearing loss Psych: reports: Depression Musculoskeletal: reports: Osteoporosis Derm: reports: Other MRSA Hx?: No - Past Surgical History Ortho: reports: Hip replacement HEENT: reports: Cataracts - Family & Social History Family History: Mother: , CAD, Father: Family History Comment/Other: Patient resides at [facility] dementia care unit. Her Andrés lives independently. 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 She does not have a history of tobacco, alcohol or illicit drug use. Current POLST on file notes DNR/DNI. Living arrangement: Assisted living ([facility] dementia unit) Living Situation: With caregiver(s) - Substance History Use: Uses substance without health or social issues: NONE Abuse: Recurrent use of substance despite neg consequences: NONE Dependence: Experiences withdrawal or developed tolerances: NONE - POLST Patient has POLST: Yes POLST Status: DNR Meds/Allgy - Home Medications Home Medications: Ambulatory Orders Medication Instructions Recorded Confirmed Alendronate [Fosamax] 70 mg PO MO 09/26/18 06/05/19 Aspirin 81 mg PO DAILY 09/26/18 06/05/19 Cholecalciferol (Vitamin D3) 2,000 unit PO DAILY 09/26/18 06/05/19 [Vitamin D3] Estrogens, Conjugated [Premarin] 0.625 mg PO DAILY 09/26/18 06/05/19 Niacin [Niacin ER] 500 mg PO DAILY 09/26/18 06/05/19 [place]-3 Fatty Acids/Fish Oil 1,000 mg PO DAILY 09/26/18 06/05/19 [[place]-3 Fish Oil 1,000 mg Sfgl] Rivastigmine [Exelon 4.6MG] 1 patch TD DAILY 09/26/18 06/05/19 atenoloL [Atenolol] 50 mg PO DAILY 09/26/18 06/05/19 Atorvastatin [Lipitor] 40 mg PO QPM #30 tablet 10/01/18 06/05/19 Lactobacillus Rhamnosus GG 1 cap PO DAILY #6 capsule 10/01/18 06/05/19 [Culturelle] Multivitamin [Theragran] 1 tab PO DAILYWM #30 tablet 10/01/18 06/05/19 Ferrous Sulfate 325 mg PO TIDWM 06/05/19 06/05/19 Magnesium Oxide [Mag-Oxide] 600 mg PO DAILY 06/05/19 06/05/19 Mirtazapine 7.5 mg PO DAILY 06/05/19 06/05/19 - Allergies Allergies/Adverse Reactions: Allergies Allergy/AdvReac Type Severity Reaction Status Date / Time No Known Drug Allergies Allergy Verified 06/05/19 13:12 Review of Systems - Constitutional Constitutional: reports: Fatigue, Fever, Weakness, Poor appetite - Cardiovascular Cariovascular: reports: Decr. exercise tolerance - Respiratory Respiratory: reports: SOB with exertion - Gastrointestinal Gastrointestinal: reports: Diarrhea, Change in bowel habits, Nausea, Vomiting, Reflux/heartburn, Bloating, Poor appetite - Genitourinary Genitourinary: reports: Dysuria, Frequency, Incontinence, Flank pain (left) - Musculoskeletal Musculoskeletal: reports: Stiffness, Limited range of motion - Integumentary Integumentary: reports: Dryness - Neurological Neurological: reports: General weakness, Focal weakness (right hand weaker than left), Memory problems, Pre-existing deficit, Abnormal gait - Psychiatric Psychiatric: reports: Depression, Anxiety - Hematologic/Lymphatic Hematologic/Lymphatic: reports: Anemia, Recurrent infections - All Other Systems All Other Systems: reports: Reviewed and negative Prior Level of Functionality: Intermittent stand-pivot, uses a walker with staff. Not able to get out of bed today. Last fall was greater than one month ago. Exam - Vital Signs Reviewed Vital Signs: Yes Vital Signs: Vital Signs x48h Temp Pulse Resp BP Pulse Ox 06/05/19 17:02 61 16 111/58 L 06/05/19 16:59 36.7 C 64 16 114/55 L 99 06/05/19 16:06 75 16 110/71 97 06/05/19 13:12 38.9 C H 107 H 14 144/71 H 94 - Physical Exam General Appearance: positive: Alert, Mild distress, Lethargic Eyes Bilateral: positive: No lid inflammation ENT: positive: Pharyngeal erythema, Dry mucous membranes Neck: positive: Trachea midline, Stiff neck Respiratory: positive: Chest non-tender, No respiratory distress, Other (dimi nished bilaterally) Cardiovascular: positive: Regular rate & rhythm, Systolic murmur, Decreased pulse(s) Peripheral Pulses: positive: 1+ Abdomen: positive: Tenderness, Guarding, Abnml bowel sounds (hyperactive), Other (rounded, soft) Back: positive: Nml inspection, CVA tenderness (L) Skin: positive: No rash, Warm, Dry, Pallor Extremities: positive: Non-tender, No pedal edema, Joint swelling Neurologic/Psychiatric: positive: Disoriented to person, Disoriented to place, Disoriented to time, Weakness, Sensory loss, Slurred/abnml speech (sluggish speech), Depressed mood/affect, Other (baseline dementia) Reflexes: Bicep (R): 2+, Bicep (L): 3+ Sepsis Event Note (H) - Evaluation Possible source of Sepsis: positive: Genitourinary - Sepsis Criteria Sepsis Criteria: Recorded Temperature greater than 38.3C or Less than 36C, DIRECTOR OF CAREER RESOURCES: altered consciousness (unrelated to primary neuro pathology) Conclusion/Plan - Problem List (1) Pyelonephritis Conclusion/Plan: -S/S include: diarrhea, nausea, vomiting, worsening confusion, left flank pain, lethargy and fevers -Baseline advanced dementia, urinary incontinence -Recurrent UTIs in the past -Started on Rocephin -Starting Meropenem 1g IV every 8 hours (broad spectrum with ESBL coverage) -Await final urine culture, if gram stain demonstrates gram positive cocci, will add vanco -Kidney US to evaluate for hydronephrosis -Routine labs Acute encephalopathy -Baseline dementia, but staff noted worsening confusion with altered mental status -Treat infection, monitor for improvement -Fall precautions -PT/OT to evaluate Hypertension -Takes atenolol at home -Hold for now, resume as indicated Dementia -Resides at [facility] memory care unit -Progressive, stable -Now with more acute confusion related to infection T12 compression fracture -According to imaging, now worse than last imaging in September 2018 -Provide Tylenol for pain, frequent nursing care -PT/OT to evaluate - Lab Results Lab results reviewed: Yes Fish Bones: 06/05/19 15:20 06/05/19 15:20 - Diagnostic Imaging Results Diagnostic Imaging Results: positive: Final report reviewed Core Measures - Anticipated LOS I expect patient to be DC'd or transferred within 96 hours.: Yes - DVT/VTE - Prophylaxis VTE/DVT Device ordered at admit?: Yes VTE/DVT Prophylaxis med ordered at admit?: Yes - Stroke - Rehab Assessment Rehab services assessment to be ordered?: Yes - AMI - Statin at Admit Aspirin Prescribed on Admit: Yes
[2019-06-05] MEDS: SODIUM CHLORIDE FLUSH 0.9% 10 ML SYRINGE IVP SCH (17:40)
[2019-06-05] MEDS: NS W/20 MEQ KCL 1,000 ML IV SCH (19:25)
[2019-06-05] MEDS: MEROPENEM 1 GM in SODIUM CHLORIDE 0.9% MINIBAG 100 ML IV SCH (19:25)
[2019-06-05] MEDS: ATORVASTATIN 40 MG TABLET PO SCH (20:53)
--- NOTE | 2019-06-06 01:02 | Ultrasound Report ---
Reason: evaluate for hydronephrosis Procedure Date: 06/05/2019 Accession Number: [id number] / [id number] Procedure: US - Retroperitoneal CPT Code: Final Report FULL RESULT: EXAM: RENAL ULTRASOUND EXAM DATE: 06/05/2019 11:55 PM. CLINICAL HISTORY: Left flank pain, low urine output COMPARISON: RETROPERITONEAL LIMITED 12/18/2017 8:43 AM CHEST W/O 09/26/2018 11:26 AM CHEST 2 VIEW 06/05/2019 2:54 PM. TECHNIQUE: Real-time scanning was performed with static images obtained. FINDINGS: Right Kidney: 11.2 x 4.4 x 4.4 cm. Echogenic cortex. No hydronephrosis. Trace free fluid. Left Kidney: 12.0 x 4.3 x 4.0 cm. Echogenic cortex. Small cortical cysts. Possible nonobstructing lower pole calculus. Trace free fluid. Bladder: Bilateral jets faintly seen. The bladder volume was 178 cc. Other: None IMPRESSION: No hydronephrosis. Echogenic kidneys, compatible with medical renal disease. Trace free fluid. RADIA
[2019-06-06] MEDS: ACETAMINOPHEN 325 MG TABLET PO PRN ×2 (02:06→18:35)
[2019-06-06] MEDS: MEROPENEM 1 GM in SODIUM CHLORIDE 0.9% MINIBAG 100 ML IV SCH ×3 (02:32→18:34)
[2019-06-06] MEDS: SODIUM CHLORIDE FLUSH 0.9% 10 ML SYRINGE IVP SCH ×3 (02:39→16:03)
[2019-06-06 05:43] LABS: BASOPHILS % (AUTO) 0.5 %; EOSINOPHILS # (AUTO) 0.1 10^3/uL (0.0-0.7); EOSINOPHILS % (AUTO) 0.6 %; HGB - HEMOGLOBIN 9.9 g/dL (12.0-16.0); LYMPHOCYTES # (AUTO) 0.4 10^3/uL (1.5-3.5); LYMPHOCYTES % (AUTO) 5.1 %; MEAN CORPUSCULAR HEMOGLOBIN 28.9 pg (27.0-31.0); MEAN CORPUSCULAR HGB CONC 31.7 g/dL (32.0-36.0); MEAN PLATELET VOLUME 11.1 fL (7.9-10.8); MONOCYTES # (AUTO) 0.7 10^3/uL (0.0-1.0); MONOCYTES % (AUTO) 8.8 %; NEUTROPHILS # (AUTO) 6.9 10^3/uL (1.5-6.6); NEUTROPHILS % (AUTO) 84.4 %; PLT - PLATELET COUNT 149 10^3/uL (130-450); RED BLOOD COUNT 3.43 10^6/uL (4.20-5.40); RED CELL DISTRIBUTION WIDTH 16.6 % (12.0-15.0); WHITE BLOOD COUNT 8.2 x10^3/uL (4.8-10.8)
[2019-06-06 05:53] LABS: ALBUMIN 2.5 g/dL (3.2-5.5); ALBUMIN/GLOBULIN RATIO 0.7 (1.0-2.2); BILIRUBIN,TOTAL 0.5 mg/dL (0.2-1.0); CREATININE 0.8 mg/dL (0.4-1.0); MAGNESIUM 1.7 mg/dL (1.7-2.8)
--- NOTE | 2019-06-06 07:36 | PROVIDER PROGRESS NOTE ---
Subjective - Prog Note Date Prog Note Date: 06/06/19 Prog Note Time: 07:33 - Subjective Pt reports feeling: Improved Subjective: The patient's and daughter were visiting today and given a medical update. Lety continues with nausea, lethargy, poor appetite. Current Medications - Current Medications Current Medications: Active Medications Acetaminophen (Tylenol) 650 mg PO Q4HR PRN PRN Reason: Pain or Fever > 38C (100.4F) Last Admin: 06/06/19 02:06 Dose: 650 mg Aspirin ([place] Aspirin) 81 mg PO DAILY ESTELITA Atorvastatin Calcium (Lipitor) 40 mg PO QPM [facility] Last Admin: 06/05/19 20:53 Dose: 40 mg Meropenem 1 gm/ Sodium (Chloride) 100 mls @ 200 mls/hr IV Q8H [facility] Last Infusion: 06/06/19 03:02 Dose: Infused Potassium Chloride/Sodium Chloride (Normal Saline 0.9% W/20 Meq Kcl) 1,000 mls @ 83.333 mls/hr IV .Q12H [facility] Last Infusion: 06/06/19 03:02 Dose: 83.333 mls/hr Multivitamins (Theragran) 1 tab PO DAILYWM [facility]ELITA Niacin (Niaspan) 500 mg PO DAILY ESTELITA Premarin 0.625 Mg 1 each PO DAILY ESTELITA Rivastigmine [Exelon (4.6mg] 1 Patch) 1 each TOP DAILY ESTELITA Sodium Chloride (Normal Saline Flush 0.9%) 10 ml IVP PRN PRN PRN Reason: NEEDED PER PROVIDER ORDERS Last Admin: 06/05/19 19:26 Dose: 10 ml Sodium Chloride (Normal Saline Flush 0.9%) 10 ml IVP 0100,0900,1700 [facility] Last Admin: 06/06/19 02:39 Dose: Not Given Alendronate [Fosamax] 70 mg PO MO 09/26/18 Aspirin 81 mg PO DAILY 09/26/18 Cholecalciferol (Vitamin D3) [Vitamin D3] 2,000 unit PO DAILY 09/26/18 Estrogens, Conjugated [Premarin] 0.625 mg PO DAILY 09/26/18 Niacin [Niacin ER] 500 mg PO DAILY 09/26/18 Brady-3 Fatty Acids/Fish Oil [[place]y-3 Fish Oil 1,000 mg Sfgl] 1,000 mg PO DAILY 09/26/18 Rivastigmine [Exelon 4.6MG] 1 patch TD DAILY 09/26/18 atenoloL [Atenolol] 50 mg PO DAILY 09/26/18 Ferrous Sulfate 325 mg PO TIDWM 06/05/19 Magnesium Oxide [Mag-Oxide] 600 mg PO DAILY 06/05/19 Mirtazapine 7.5 mg PO DAILY 06/05/19 Objective - Vital Signs/Intake & Output Reviewed Vital Signs: Yes Vital Signs: Vital Signs x48h Temp Pulse Resp BP Pulse Ox 06/06/19 01:57 36.6 C 06/06/19 00:00 36.4 C L 68 16 138/56 H 98 Intake & Output: Intake & Output 06/03/19 06/04/19 06/05/19 06/06/19 23:59 23:59 23:59 23:59 Intake Total 1440 953.053 Output Total 250 Balance 1440 703.053 - Objective General Appearance: positive: No acute distress, Alert Eyes Bilateral: positive: PERRL, No lid inflammation Eyes: OU Conjunctivae pale, OU Scleral icterus ENT: positive: Pharyngeal erythema, Dry mucous membranes Neck: positive: Trachea midline, Stiff neck Respiratory: positive: Chest non-tender, No respiratory distress, Breath sounds nml Cardiovascular: positive: Regular rate & rhythm, No gallop, Systolic murmur, Decreased pulse(s) Peripheral Pulses: 1+ Radial (R), 1+ Radial (L) Abdomen: positive: Non-tender, Nml bowel sounds, Hepatomegaly, Other (rounded, soft) Back: positive: Nml inspection Skin: positive: No rash, Warm, Dry, Pallor Extremities: positive: Non-tender, Full ROM, No pedal edema, Joint swelling Neurologic/Psychiatric: positive: Disoriented to person, Disoriented to place, Disoriented to time, Weakness, Sensory loss, Slurred/abnml speech, Depressed mood/affect, Other (few word sentences, baseline dementia) Reflexes: Bicep (R): 2+, Bicep (L): 2+ - Lab Results Fish Bones: 06/06/19 05:06 06/06/19 05:06 Other Labs: Lab Results x24hrs 06/06/19 06/06/19 06/05/19 Range/Units 05:06 05:06 15:28 WBC 8.2 (4.8-10.8) x10^3/uL RBC 3.43 L (4.20-5.40) 10^6/uL Hgb 9.9 L (12.0-16.0) g/dL Hct 31.2 L (37.0-47.0) % MCV 91.0 (81.0-99.0) fL MCH 28.9 (27.0-31.0) pg MCHC 31.7 L (32.0-36.0) g/dL RDW 16.6 H (12.0-15.0) % Plt Count 149 (130-450) 10^3/uL MPV 11.1 H (7.9-10.8) fL Neut # (Auto) 6.9 H (1.5-6.6) 10^3/uL Lymph # (Auto) 0.4 L (1.5-3.5) 10^3/uL [place] # (Auto) 0.7 (0.0-1.0) 10^3/uL Eos # (Auto) 0.1 (0.0-0.7) 10^3/uL Baso # (Auto) 0.0 (0.0-0.1) 10^3/uL Absolute Nucleated RBC 0.00 x10^3/uL Nucleated RBC % 0.0 /100WBC Sodium 138 (135-145) mmol/L Potassium 3.8 (3.5-5.0) mmol/L Chloride 105 (101-111) mmol/L Carbon Dioxide 24 (21-32) mmol/L Anion Gap 9.0 (6-13) BUN 18 (6-20) mg/dL Creatinine 0.8 (0.4-1.0) mg/dL Estimated GFR (MDRD) 68 L (>89) Glucose 97 (70-100) mg/dL Lactic Acid (0.5-2.2) mmol/L Calcium 8.0 L (8.5-10.3) mg/dL Magnesium 1.7 (1.7-2.8) mg/dL Total Bilirubin 0.5 (0.2-1.0) mg/dL AST 28 (10-42) IU/L ALT 17 (10-60) IU/L Alkaline Phosphatase 97 (42-121) IU/L Total Protein 6.0 L (6.7-8.2) g/dL Albumin 2.5 L (3.2-5.5) g/dL Globulin 3.5 (2.1-4.2) g/dL Albumin/Globulin Ratio 0.7 L (1.0-2.2) Lipase (22-51) U/L Urine Color YELLOW Urine Clarity SL. CLOUDY (CLEAR) Urine pH 6.0 (5.0-7.5) PH Ur Specific [place] 1.025 (1.002-1.030) Urine Protein >=300 H (NEGATIVE) mg/dL Urine Glucose (UA) NEGATIVE (NEGATIVE) mg/dL Urine Ketones NEGATIVE (NEGATIVE) mg/dL Urine Occult Blood SMALL H (NEGATIVE) Urine Nitrite NEGATIVE (NEGATIVE) Urine Bilirubin NEGATIVE (NEGATIVE) Urine Urobilinogen 0.2 (NORMAL) (NORMAL) E.U./dL Ur Leukocyte Esterase TRACE H (NEGATIVE) Urine RBC 0-5 (0-5) /HPF Urine WBC 6-10 H (0-5) /HPF Ur Squamous Epith Cells RARE Squamous (<= Few) Urine Bacteria Many H (None Seen) /HPF Ur Microscopic Review INDICATED Urine Culture Comments INDICATED Influenza A (Rapid) (Negative) Influenza B (Rapid) (Negative) 06/05/19 06/05/19 06/05/19 Range/Units 15:20 15:20 15:20 WBC 11.3 H (4.8-10.8) x10^3/uL RBC 3.76 L (4.20-5.40) 10^6/uL Hgb 10.8 L (12.0-16.0) g/dL Hct 33.7 L (37.0-47.0) % MCV 89.6 (81.0-99.0) fL MCH 28.7 (27.0-31.0) pg MCHC 32.0 (32.0-36.0) g/dL RDW 16.4 H (12.0-15.0) % Plt Count 180 (130-450) 10^3/uL MPV 11.2 H (7.9-10.8) fL Neut # (Auto) 9.8 H (1.5-6.6) 10^3/uL Lymph # (Auto) 0.5 L (1.5-3.5) 10^3/uL [place] # (Auto) 0.8 (0.0-1.0) 10^3/uL Eos # (Auto) 0.1 (0.0-0.7) 10^3/uL Baso # (Auto) 0.0 (0.0-0.1) 10^3/uL Absolute Nucleated RBC 0.00 x10^3/uL Nucleated RBC % 0.0 /100WBC Sodium 133 L (135-145) mmol/L Potassium 3.3 L (3.5-5.0) mmol/L Chloride 96 L (101-111) mmol/L Carbon Dioxide 25 (21-32) mmol/L Anion Gap 12.0 (6-13) BUN 18 (6-20) mg/dL Creatinine 1.0 (0.4-1.0) mg/dL Estimated GFR (MDRD) 52 L (>89) Glucose 143 H (70-100) mg/dL Lactic Acid 1.6 (0.5-2.2) mmol/L Calcium 8.9 (8.5-10.3) mg/dL Magnesium (1.7-2.8) mg/dL Total Bilirubin 0.7 (0.2-1.0) mg/dL AST 51 H (10-42) IU/L ALT 22 (10-60) IU/L Alkaline Phosphatase 129 H (42-121) IU/L Total Protein 7.2 (6.7-8.2) g/dL Albumin 3.2 (3.2-5.5) g/dL Globulin 4.0 (2.1-4.2) g/dL Albumin/Globulin Ratio 0.8 L (1.0-2.2) Lipase 29 (22-51) U/L Urine Color Urine Clarity (CLEAR) Urine pH (5.0-7.5) PH Ur Specific [place] (1.002-1.030) Urine Protein (NEGATIVE) mg/dL Urine Glucose (UA) (NEGATIVE) mg/dL Urine Ketones (NEGATIVE) mg/dL Urine Occult Blood (NEGATIVE) Urine Nitrite (NEGATIVE) Urine Bilirubin (NEGATIVE) Urine Urobilinogen (NORMAL) E.U./dL Ur Leukocyte Esterase (NEGATIVE) Urine RBC (0-5) /HPF Urine WBC (0-5) /HPF Ur Squamous Epith Cells (<= Few) Urine Bacteria (None Seen) /HPF Ur Microscopic Review Urine Culture Comments Influenza A (Rapid) (Negative) Influenza B (Rapid) (Negative) 06/05/19 Range/Units 13:48 WBC (4.8-10.8) x10^3/uL RBC (4.20-5.40) 10^6/uL Hgb (12.0-16.0) g/dL Hct (37.0-47.0) % MCV (81.0-99.0) fL MCH (27.0-31.0) pg MCHC (32.0-36.0) g/dL RDW (12.0-15.0) % Plt Count (130-450) 10^3/uL MPV (7.9-10.8) fL Neut # (Auto) (1.5-6.6) 10^3/uL Lymph # (Auto) (1.5-3.5) 10^3/uL [place] # (Auto) (0.0-1.0) 10^3/uL Eos # (Auto) (0.0-0.7) 10^3/uL Baso # (Auto) (0.0-0.1) 10^3/uL Absolute Nucleated RBC x10^3/uL Nucleated RBC % /100WBC Sodium (135-145) mmol/L Potassium (3.5-5.0) mmol/L Chloride (101-111) mmol/L Carbon Dioxide (21-32) mmol/L Anion Gap (6-13) BUN (6-20) mg/dL Creatinine (0.4-1.0) mg/dL Estimated GFR (MDRD) (>89) Glucose (70-100) mg/dL Lactic Acid (0.5-2.2) mmol/L Calcium (8.5-10.3) mg/dL Magnesium (1.7-2.8) mg/dL Total Bilirubin (0.2-1.0) mg/dL AST (10-42) IU/L ALT (10-60) IU/L Alkaline Phosphatase (42-121) IU/L Total Protein (6.7-8.2) g/dL Albumin (3.2-5.5) g/dL Globulin (2.1-4.2) g/dL Albumin/Globulin Ratio (1.0-2.2) Lipase (22-51) U/L Urine Color Urine Clarity (CLEAR) Urine pH (5.0-7.5) PH Ur Specific [place] (1.002-1.030) Urine Protein (NEGATIVE) mg/dL Urine Glucose (UA) (NEGATIVE) mg/dL Urine Ketones (NEGATIVE) mg/dL Urine Occult Blood (NEGATIVE) Urine Nitrite (NEGATIVE) Urine Bilirubin (NEGATIVE) Urine Urobilinogen (NORMAL) E.U./dL Ur Leukocyte Esterase (NEGATIVE) Urine RBC (0-5) /HPF Urine WBC (0-5) /HPF Ur Squamous Epith Cells (<= Few) Urine Bacteria (None Seen) /HPF Ur Microscopic Review Urine Culture Comments Influenza A (Rapid) Negative (Negative) Influenza B (Rapid) Negative (Negative) ABX Reporting Has patient been on IV antibiotics over the past 48 hours?: Yes Sepsis Event Note (H) - Evaluation Possible source of Sepsis: positive: Genitourinary - Sepsis Criteria Sepsis Criteria: Recorded Temperature greater than 38.3C or Less than 36C, PUMPER GAGER: altered consciousness (unrelated to primary neuro pathology) Assessment/Plan - Problem List (1) E coli bacteremia Impression: -1 of 2 blood cultures were positive for e coli -Blood cultures x2 re-ordered today -Continue IV meropenem, await final culture results to determine length of treatmetn Pyelonephritis -S/S include: diarrhea, nausea, vomiting, worsening confusion, left flank pain, lethargy and fevers -Baseline advanced dementia, urinary incontinence -Recurrent UTIs in the past -Started on Rocephin -Continues on Meropenem 1g IV every 8 hours (broad spectrum with ESBL coverage) -Await final urine culture -Kidney US was negative for hydronephrosis, but possible non-obstructing left kidney stone -Routine labs Weakness -PT/OT to evaluate -Still with a poor appetite -Possible senior care for a rehab stay, or fdc IV antibiotic treatment Acute encephalopathy -Baseline dementia, but staff noted worsening confusion with altered mental status -Treat infection, monitor for improvement -Fall precautions -PT/OT to evaluate Hypertension -Takes atenolol at home -B/Ps light, 111/50, still holding home med today -Hold for now, resume as indicated Dementia -Resides at [facility] memory care unit -Progressive, stable -Now with more acute confusion related to infection T12 compression fracture -According to imaging, now worse than last imaging in September 2018 -Provide Tylenol for pain, frequent nursing care -PT/OT to evaluate
[2019-06-06] MEDS: MULTIVITAMIN TABLET PO SCH (08:31)
[2019-06-06] MEDS: ASPIRIN CHEW 81 MG TABLET PO SCH (08:31)
[2019-06-06] MEDS: RIVASTIGMINE TOP SCH (08:31)
[2019-06-06] MEDS: NIACIN ER 500 MG TABLET PO SCH (08:31)
[2019-06-06] MEDS: NS W/20 MEQ KCL 1,000 ML IV SCH ×2 (08:51→18:34)
[2019-06-06] MEDS: ATORVASTATIN 40 MG TABLET PO SCH (21:15)
[2019-06-07] MEDS: ACETAMINOPHEN 325 MG TABLET PO PRN ×2 (00:29→06:16)
[2019-06-07] MEDS: SODIUM CHLORIDE FLUSH 0.9% 10 ML SYRINGE IVP SCH ×3 (00:46→17:05)
[2019-06-07 05:36] LABS: BASOPHILS % (AUTO) 0.4 %; EOSINOPHILS # (AUTO) 0.1 10^3/uL (0.0-0.7); EOSINOPHILS % (AUTO) 1.5 %; HGB - HEMOGLOBIN 9.6 g/dL (12.0-16.0); LYMPHOCYTES # (AUTO) 0.6 10^3/uL (1.5-3.5); LYMPHOCYTES % (AUTO) 9.4 %; MEAN CORPUSCULAR HEMOGLOBIN 28.8 pg (27.0-31.0); MEAN CORPUSCULAR HGB CONC 31.6 g/dL (32.0-36.0); MEAN CORPUSCULAR VOLUME 91.3 fL (81.0-99.0); MEAN PLATELET VOLUME 10.8 fL (7.9-10.8); MONOCYTES # (AUTO) 0.4 10^3/uL (0.0-1.0); MONOCYTES % (AUTO) 6.3 %; NEUTROPHILS # (AUTO) 5.5 10^3/uL (1.5-6.6); NEUTROPHILS % (AUTO) 82.1 %; PLT - PLATELET COUNT 145 10^3/uL (130-450); RED BLOOD COUNT 3.33 10^6/uL (4.20-5.40); RED CELL DISTRIBUTION WIDTH 17.2 % (12.0-15.0); WHITE BLOOD COUNT 6.7 x10^3/uL (4.8-10.8)
[2019-06-07 05:50] LABS: ALBUMIN 2.3 g/dL (3.2-5.5); ALBUMIN/GLOBULIN RATIO 0.7 (1.0-2.2); BILIRUBIN,TOTAL 0.6 mg/dL (0.2-1.0); CALCIUM 7.7 mg/dL (8.5-10.3); CREATININE 0.7 mg/dL (0.4-1.0); MAGNESIUM 1.7 mg/dL (1.7-2.8); TOTAL PROTEIN 5.6 g/dL (6.7-8.2)
[2019-06-07] MEDS: MEROPENEM 1 GM in SODIUM CHLORIDE 0.9% MINIBAG 100 ML IV SCH ×2 (06:24→19:16)
[2019-06-07] MEDS: MULTIVITAMIN TABLET PO SCH (08:13)
[2019-06-07] MEDS: NIACIN ER 500 MG TABLET PO SCH (08:13)
[2019-06-07] MEDS: NS W/20 MEQ KCL 1,000 ML IV SCH (08:13)
[2019-06-07] MEDS: RIVASTIGMINE TOP SCH (08:13)
[2019-06-07] MEDS: ASPIRIN CHEW 81 MG TABLET PO SCH (08:13)
[2019-06-07] MEDS ORDERED: LACTOBACILLUS RHAMNOSUS GG CAPSULE PO SCH (11:00)
[2019-06-07] MEDS: MAGNESIUM OXIDE 400 MG TABLET PO SCH (11:37)
[2019-06-07] MEDS ORDERED: ONDANSETRON 4 MG/2 ML VIAL IVP PRN (12:41)
[2019-06-07] MEDS ORDERED: oxyCODONE 5 MG TABLET PO PRN (12:47)
--- NOTE | 2019-06-07 12:49 | PROVIDER PROGRESS NOTE ---
Assessment/Plan - Problem List (1) E coli bacteremia Assessment/Plan: pt present Fever at the admission, pt was found to have one tube with bacteremia. pt is on Meropenem pt has no more fever or chill. WBC is normal. secondary blood culture is pending since pt was treated with antibiotics continue the antibiotics. [facility] could not take pt today because of snow and safety for transportation UTI UA reveals positive Ecoli infection. it is likely the resource for bacteremia. continue antibiotics treatment Weakness PT/OT order and will evaluate and treat for pt Acute encephalopathy resolved. as her Baseline dementia continue Treat infection, monitor for improvement Fall precautions Hypertension stable, continue home atenolol at home Dementia stable, as his baseline Poor appetite still poor, start on marinol. continue consult with foundry worker T12 compression fracture According new imaging, now worse than last imaging in September 2018 Provide Tylenol and oxycodone PRN for pain, frequent nursing care continue PT/OT to evaluate and treat - Current Meds Current Meds: Current Medications Generic Name Dose Route Start Last Admin Trade Name Freq PRN Reason Stop Dose Admin Acetaminophen 650 mg 06/06/19 01:46 06/07/19 06:16 Tylenol PO 650 mg Q4HR PRN Administration Pain or Fever > 38C (100.4F) Aspirin 81 mg 06/06/19 09:00 06/07/19 08:13 [facility] Aspirin PO 81 mg DAILY ESTELITA Administration Atorvastatin Calcium 40 mg 06/05/19 21:00 06/06/19 21:15 Lipitor PO 40 mg QPM ESTELITA Administration Meropenem 1 gm/ Sodium 100 mls @ 200 mls/hr 06/07/19 07:00 06/07/19 06:54 Chloride IV Infused Q12H ESTELITA Infusion Magnesium Oxide 600 mg 06/07/19 10:45 06/07/19 11:37 Mag Ox PO 600 mg DAILY ESTELITA Administration Multivitamins 1 tab 06/06/19 08:00 06/07/19 08:13 Theragran PO 1 tab DAILYWM ESTELITA Administration Niacin 500 mg 06/06/19 09:00 06/07/19 08:13 Niaspan PO 500 mg DAILY ESTELITA Administration Premarin 0.625 Mg 1 each 06/06/19 09:00 06/07/19 08:13 PO Not Given DAILY ESTELITA Rivastigmine [Exelon 1 each 06/06/19 09:00 06/07/19 08:13 4.6mg] 1 Patch TOP Not Given DAILY ESTELITA Sodium Chloride 10 ml 06/05/19 16:36 06/05/19 19:26 Normal Saline Flush 0.9% IVP 10 ml PRN PRN Administration NEEDED PER PROVIDER ORDERS Sodium Chloride 10 ml 06/05/19 17:00 06/07/19 08:13 Normal Saline Flush 0.9% IVP Not Given 0100,0900,1700 ESTELITA - Lab Result Fish Bone Diagrams: 06/07/19 05:15 06/07/19 05:15 - Additional Planning My Orders: My Active Orders 06/07/19 Evaluate and Treat OT [OT] Routine Evaluate and Treat PT [PT] Routine 06/07/19 10:45 Magnesium Oxide [Mag Ox] 600 mg PO DAILY 06/07/19 11:00 Lactobacillus Rhamnosus GG [Culturelle] 1 cap PO DAILY 06/07/19 12:00 Ferrous Sulfate [Feosol] 325 mg PO TIDWM 06/07/19 12:41 Ondansetron Inj [Zofran Inj] 4 mg IVP Q6HR PRN 06/07/19 12:47 oxyCODONE [Roxicodone] 5 mg PO Q4HR PRN 06/07/19 13:00 Sodium Chloride 0.9% [Normal Saline 0.9%] 1,000 ml IV 75 mls/hr 06/08/19 05:00 CBC - COMP BLD CT W/AUTO DIFF [HEME] DAILYLAB CMP [COMPREHENSIVE METABOLIC PANEL] [CHEM] DAILYLAB 06/08/19 07:00 Pantoprazole [Protonix] 40 mg PO QDAC 06/08/19 09:00 Enoxaparin [Lovenox] 40 mg SUBQ DAILY [place]-3 Acid Ethyl Esters [Lovaza] 1 gm PO DAILY atenoloL [Tenormin] 50 mg PO DAILY 06/09/19 05:00 CBC - COMP BLD CT W/AUTO DIFF [HEME] DAILYLAB CMP [COMPREHENSIVE METABOLIC PANEL] [CHEM] DAILYLAB 06/10/19 05:00 CBC - COMP BLD CT W/AUTO DIFF [HEME] DAILYLAB CMP [COMPREHENSIVE METABOLIC PANEL] [CHEM] DAILYLAB Subjective - Subjective Patient Reports: Feeling Better Objective Vital Signs: Vital Signs - 24 hr 06/06/19 06/07/1920 16:00 00:00 00:59 Temperature 36.8 C 36.1 C L 36.4 C L Heart Rate [ 72 88 Brachial] Respiratory 20 18 Rate Blood Pressure 150/75 H 134/56 H [Right Brachial artery] O2 Saturation 98 96 06/07/19 07:40 Temperature 36.4 C L Heart Rate [ 72 Brachial] Respiratory 16 Rate Blood Pressure 146/73 H [Right Brachial artery] O2 Saturation 97 Oxygen O2 Source Room air I&O (Last 24 Hrs): Intake and Output Totals x24h 06/05/19 06/06/19 06/07/19 23:59 23:59 23:59 Intake Total 1440 3309.398 2170.000 Output Total 450 650 Balance 1440 2859.398 1520.000 General: Alert, No acute distress HEENT: Atraumatic Neck: Supple Lymphatic: no adenopathy Neuro: Alert, Non Focal Cardiovascular: Regular rate, Normal S1, Normal S2 Respiratory: Chest non-tender, No respiratory distress, Breath sounds nml Abdomen: Normal bowel sounds, Soft Extremities: No edema, Normal pulses - Results Results: Laboratory Results WBC 6.7 x10^3/uL (4.8-10.8) 06/07/19 05:15 RBC 3.33 10^6/uL (4.20-5.40) L 06/07/19 05:15 Hgb 9.6 g/dL (12.0-16.0) L 06/07/19 05:15 Hct 30.4 % (37.0-47.0) L 06/07/19 05:15 MCV 91.3 fL (81.0-99.0) 06/07/19 05:15 MCH 28.8 pg (27.0-31.0) 06/07/19 05:15 MCHC 31.6 g/dL (32.0-36.0) L 06/07/19 05:15 RDW 17.2 % (12.0-15.0) H 06/07/19 05:15 Plt Count 145 10^3/uL (130-450) 06/07/19 05:15 MPV 10.8 fL (7.9-10.8) 06/07/19 05:15 Neut # (Auto) 5.5 10^3/uL (1.5-6.6) 06/07/19 05:15 Lymph # (Auto) 0.6 10^3/uL (1.5-3.5) L 06/07/19 05:15 [place] # (Auto) 0.4 10^3/uL (0.0-1.0) 06/07/19 05:15 Eos # (Auto) 0.1 10^3/uL (0.0-0.7) 06/07/19 05:15 Baso # (Auto) 0.0 10^3/uL (0.0-0.1) 06/07/19 05:15 Absolute Nucleated RBC 0.00 x10^3/uL 06/07/19 05:15 Nucleated RBC % 0.0 /100WBC 06/07/19 05:15 Sodium 136 mmol/L (135-145) 06/07/19 05:15 Potassium 4.1 mmol/L (3.5-5.0) 06/07/19 05:15 Chloride 107 mmol/L (101-111) 06/07/19 05:15 Carbon Dioxide 23 mmol/L (21-32) 06/07/19 05:15 Anion Gap 6.0 (6-13) 06/07/19 05:15 BUN 16 mg/dL (6-20) 06/07/19 05:15 Creatinine 0.7 mg/dL (0.4-1.0) 06/07/19 05:15 Estimated GFR (MDRD) 79 (>89) L 06/07/19 05:15 Glucose 100 mg/dL (70-100) 06/07/19 05:15 Lactic Acid 1.6 mmol/L (0.5-2.2) 06/05/19 15:20 Calcium 7.7 mg/dL (8.5-10.3) L 06/07/19 05:15 Magnesium 1.7 mg/dL (1.7-2.8) 06/07/19 05:15 Total Bilirubin 0.6 mg/dL (0.2-1.0) 06/07/19 05:15 AST 35 IU/L (10-42) 06/07/19 05:15 ALT 21 IU/L (10-60) 06/07/19 05:15 Alkaline Phosphatase 136 IU/L (42-121) H 06/07/19 05:15 Total Protein 5.6 g/dL (6.7-8.2) L 06/07/19 05:15 Albumin 2.3 g/dL (3.2-5.5) L 06/07/19 05:15 Globulin 3.3 g/dL (2.1-4.2) 06/07/19 05:15 Albumin/Globulin Ratio 0.7 (1.0-2.2) L 06/07/19 05:15 Lipase 29 U/L (22-51) 06/05/19 15:20 Urine Color YELLOW 06/05/19 15:28 Urine Clarity SL. CLOUDY (CLEAR) 06/05/19 15: Urine pH 6.0 PH (5.0-7.5) 06/05/19 15:28 Ur Specific [place] 1.025 (1.002-1.030) 06/05/19 15:28 Urine Protein >=300 mg/dL (NEGATIVE) H 06/05/19 15:28 Urine Glucose (UA) NEGATIVE mg/dL (NEGATIVE) 06/05/19 15:28 Urine Ketones NEGATIVE mg/dL (NEGATIVE) 06/05/19 15:28 Urine Occult Blood SMALL (NEGATIVE) H 06/05/19 15:28 Urine Nitrite NEGATIVE (NEGATIVE) 06/05/19 15:28 Urine Bilirubin NEGATIVE (NEGATIVE) 06/05/19 15:28 Urine Urobilinogen 0.2 (NORMAL) E.U./dL (NORMAL) 06/05/19 15:28 Ur Leukocyte Esterase TRACE (NEGATIVE) H 06/05/19 15:28 Urine RBC 0-5 /HPF (0-5) 06/05/19 15:28 Urine WBC 6-10 /HPF (0-5) H 06/05/19 15:28 Ur Squamous Epith Cells RARE Squamous (<= Few) 06/05/19 15:28 Urine Bacteria Many /HPF (None Seen) H 06/05/19 15:28 Ur Microscopic Review INDICATED 06/05/19 15:28 Urine Culture Comments INDICATED 06/05/19 15:28 Influenza A (Rapid) Negative (Negative) 06/05/19 13:48 Influenza B (Rapid) Negative (Negative) 06/05/19 13:48 Sepsis Event Note (H) - Evaluation Possible source of Sepsis: positive: Genitourinary - Sepsis Criteria Sepsis Criteria: Recorded Temperature greater than 38.3C or Less than 36C, PIECE MEAT TRIMMER: altered consciousness (unrelated to primary neuro pathology) ABX Reporting Has patient been on IV antibiotics over the past 48 hours?: Yes Current Medications - Current Medications Current Medications: Active Medications Acetaminophen (Tylenol) 650 mg PO Q4HR PRN PRN Reason: Pain or Fever > 38C (100.4F) Last Admin: 06/07/19 06:16 Dose: 650 mg Aspirin ([place] Aspirin) 81 mg PO DAILY [facility] Last Admin: 06/07/19 08:13 Dose: 81 mg Atenolol (Tenormin) 50 mg PO DAILY [facility] Atorvastatin Calcium (Lipitor) 40 mg PO QPM [facility] Last Admin: 06/06/19 21:15 Dose: 40 mg Enoxaparin Sodium (Lovenox) 40 mg SUBQ DAILY [facility] Ferrous Sulfate (Feosol) 325 mg PO TIDWM [facility] Meropenem 1 gm/ Sodium (Chloride) 100 mls @ 200 mls/hr IV Q12H [facility] Last Infusion: 06/07/19 06:54 Dose: Infused Sodium Chloride (Normal Saline 0.9%) 1,000 mls @ 75 mls/hr IV .[id number] [facility] Lactobacillus Rhamnosus (Culturelle) 1 cap PO DAILY [facility] Magnesium Oxide (Mag Ox) 600 mg PO DAILY [facility] Last Admin: 06/07/19 11:37 Dose: 600 mg Multivitamins (Theragran) 1 tab PO DAILYWM [facility] Last Admin: 06/07/19 08:13 Dose: 1 tab Niacin (Niaspan) 500 mg PO DAILY [facility] Last Admin: 06/07/19 08:13 Dose: 500 mg [id number] Ethyl Esters (Lovaza) 1 gm PO DAILY [facility] Ondansetron HCl (Zofran Inj) 4 mg IVP Q6HR PRN PRN Reason: Nausea / Vomiting Oxycodone HCl (Roxicodone) 5 mg PO Q4HR PRN PRN Reason: PAIN Pantoprazole Sodium (Protonix) 40 mg PO QDAC [facility] Premarin 0.625 Mg 1 each PO DAILY [facility] Last Admin: 06/07/19 08:13 Dose: Not Given Rivastigmine [Exelon (4.6mg] 1 Patch) 1 each TOP DAILY [facility] Last Admin: 06/07/19 08:13 Dose: Not Given Sodium Chloride (Normal Saline Flush 0.9%) 10 ml IVP PRN PRN PRN Reason: NEEDED PER PROVIDER ORDERS Last Admin: 06/05/19 19:26 Dose: 10 ml Sodium Chloride (Normal Saline Flush 0.9%) 10 ml IVP 0100,0900,1700 ESTELITA Last Admin: 06/07/19 08:13 Dose: Not Given Alendronate [Fosamax] 70 mg PO MO 09/26/18 Aspirin 81 mg PO DAILY 09/26/18 Cholecalciferol (Vitamin D3) [Vitamin D3] 2,000 unit PO DAILY 09/26/18 Estrogens, Conjugated [Premarin] 0.625 mg PO DAILY 09/26/18 Niacin [Niacin ER] 500 mg PO DAILY 09/26/18 [place]-3 Fatty Acids/Fish Oil [[place]-3 Fish Oil 1,000 mg Sfgl] 1,000 mg PO DAILY 09/26/18 Rivastigmine [Exelon 4.6MG] 1 patch TD DAILY 09/26/18 atenoloL [Atenolol] 50 mg PO DAILY 09/26/18 Ferrous Sulfate 325 mg PO TIDWM 06/05/19 Magnesium Oxide [Mag-Oxide] 600 mg PO DAILY 06/05/19 Mirtazapine 7.5 mg PO DAILY 06/05/19
[2019-06-07] MEDS: FERROUS SULFATE 325 MG TABLET PO SCH ×2 (13:06→17:06)
[2019-06-07] MEDS: SODIUM CHLORIDE 0.9% 1,000 ML IV SCH (13:24)
[2019-06-07] MEDS: ATORVASTATIN 40 MG TABLET PO SCH (21:16)
[2019-06-08] MEDS: SODIUM CHLORIDE 0.9% 1,000 ML IV SCH (03:36)
[2019-06-08] MEDS: SODIUM CHLORIDE FLUSH 0.9% 10 ML SYRINGE IVP SCH ×2 (03:36→08:52)
[2019-06-08 04:50] LABS: BASOPHILS % (AUTO) 0.4 %; EOSINOPHILS % (AUTO) 0.2 %; HGB - HEMOGLOBIN 9.4 g/dL (12.0-16.0); LYMPHOCYTES # (AUTO) 0.8 10^3/uL (1.5-3.5); LYMPHOCYTES % (AUTO) 17.5 %; MEAN CORPUSCULAR HEMOGLOBIN 28.1 pg (27.0-31.0); MEAN CORPUSCULAR HGB CONC 31.8 g/dL (32.0-36.0); MEAN CORPUSCULAR VOLUME 88.6 fL (81.0-99.0); MEAN PLATELET VOLUME 11.4 fL (7.9-10.8); MONOCYTES # (AUTO) 0.6 10^3/uL (0.0-1.0); MONOCYTES % (AUTO) 11.7 %; NEUTROPHILS # (AUTO) 3.4 10^3/uL (1.5-6.6); NEUTROPHILS % (AUTO) 69.8 %; PLT - PLATELET COUNT 164 10^3/uL (130-450); RED BLOOD COUNT 3.34 10^6/uL (4.20-5.40); RED CELL DISTRIBUTION WIDTH 17.2 % (12.0-15.0); WHITE BLOOD COUNT 4.8 x10^3/uL (4.8-10.8)
[2019-06-08 05:06] LABS: ALBUMIN 2.3 g/dL (3.2-5.5); ALBUMIN/GLOBULIN RATIO 0.7 (1.0-2.2); BILIRUBIN,TOTAL 0.3 mg/dL (0.2-1.0); CREATININE 0.7 mg/dL (0.4-1.0); TOTAL PROTEIN 5.7 g/dL (6.7-8.2)
[2019-06-08] MEDS: MEROPENEM 1 GM in SODIUM CHLORIDE 0.9% MINIBAG 100 ML IV SCH (06:25)
[2019-06-08] MEDS ORDERED: PANTOPRAZOLE 40 MG TABLET PO SCH (07:00)
[2019-06-08] MEDS: MULTIVITAMIN TABLET PO SCH (08:50)
[2019-06-08] MEDS: MAGNESIUM OXIDE 400 MG TABLET PO SCH (08:50)
[2019-06-08] MEDS: FERROUS SULFATE 325 MG TABLET PO SCH ×2 (08:50→12:28)
[2019-06-08] MEDS: ASPIRIN CHEW 81 MG TABLET PO SCH (08:50)
[2019-06-08] MEDS: NIACIN ER 500 MG TABLET PO SCH (08:51)
[2019-06-08] MEDS: RIVASTIGMINE TOP SCH (08:52)
[2019-06-08] MEDS ORDERED: OMEGA-3 ACID ETHYL ESTERS 1 GM CAPSULE PO SCH (09:00)
[2019-06-08] MEDS ORDERED: atenoloL 25 MG TABLET PO SCH (09:00)
[2019-06-08] MEDS ORDERED: ENOXAPARIN 40 MG/0.4 ML SYRINGE SUBQ SCH (09:00)
[2019-06-08 10:40] VITALS: BP 139/77
--- NOTE | 2019-06-08 11:31 | Discharge Plan ---
"Discharge Plan for SNF / [facility] - Discharge Plan And Transition Orders Problem Reviewed?: Yes Disposition: 01 Home, Self Care Condition: Stable Allergies and Adverse Reactions: Allergies Allergy/AdvReac Type Severity Reaction Status Date / Time No Known Drug Allergies Allergy Verified 06/05/19 13:12 Health Concerns: UTI, fever with bacteremia Plan of Treatment: pt was found to have UTI and bacteremia with fever. pt is prescribed antibiotics Ceftin to continue the treatment course. Keep pt personal hygiene to prevent re- infection of UTI Care Goals: prevention of UTI and bacteremia Assessment: discussed with pt and her family the care plan, they understood. - SNF / [facility] Transition Orders Admit to (Facility): [facility] Under the care of (Name): Samuel Valles Discharge Diagnosis: UTI, bacteremia, fever, dementia, HTN, weakness Medicare Certification Statement: I do not certify that [facility] care is medically necessary on a continuing basis for any of the conditions for which she/he is receiving care during hospitalization. Notify PCP of admission and forward orders to primary provider for signature. Weight on admission and: Daily Call PCP immediately if weight increases by: 2 kg Other Notification Orders: Call PCP immediately if patient develops dyspnea, chest pain/tightness or edema. House Bowel Program: Yes Additional Bowel Program Orders: If no BM after 2 days, nurse may give M.O.M. 30ml PO PRN and/or ducolax Supp 1 SD and/or JOE 250mg P.O., and/or senna 1-2 tabs PO. On day 3 nurse may give repeat above order until residents constipation is resolved. Annual Influenza Vaccine (between Jan 23 and August 22): Yes Two-step PPD per [facility] [phone] or approved exception documents: Yes Treatments & Other Orders: pt may followup her PCP in one week, continue ant ibiotics treatment course for her UTI and bacteremia. Medication Orders: PLEASE REFER TO THE DISCHARGE MEDICATION LIST. Insulin Orders?: No - Medications New Prescriptions: cefUROXime axetiL [Ceftin] 500 mg PO Q12H #40 tablet Saccharomyces Boulardii [Florastor] 250 mg PO DAILY #10 capsule - Diet Type: Geriatric Texture: Regular Liquids: Thin May have monthly special meal: Yes - Therapies | Activity Rehabilitation Potential: Maximize functional status Activity: Activity as Tolerated Additional Instructions: pt may followup her PCP in one week, continue antibiotics treatment course for her UTI and bacteremia."
--- NOTE | 2019-06-08 11:51 | DISCHARGE SUMMARY ---
Discharge Summary Admit Date: 06/05/19 Discharge Date: 06/08/19 Discharging Provider: FABBY SHIPMAN Primary Care Provider: Samuel Valles Condition at Discharge: Stable Discharge Disposition: Home, Self Care Discharge Facility Name: [facility] - DIAGNOSES Admission Diagnoses: (1) Pyelonephritis Acute encephalopathy Hypertension Dementia T12 compression fracture Discharge Diagnoses with Status of Each Condition: sepsis resolved. pt present fever, elevated WBC, tachycardia and UTI at the admission. E coli bacteremia pt was found to have Ecoli bacteremia in one tube blood culture. pt was found to have fever at the admission. pt is prescribed Ceftin for d/c to home. UTI pt was found Ecoli in UA culture. pt is prescribed Ceftin for d/c to home Weakness improved. PT/OT recommend to previous residence [facility] Acute encephalopathy resolved Hypertension stable Dementia stable Poor appetite improved T12 compression fracture stable - HPI History of Present Illness: refer from Ms Pina's HPI on 06/05/2019 Lety Morley is an ill appearing, white, 88-year old female with a past medical history of hypertension, dementia, falls, T12 compression fracture, status post hip replacement, hearing loss, cataracts, urinary incontinence and osteoporosis. She resides at [facility] and was in her usual state of health until this morning when she would not get out of bed, had diarrhea, a fever recorded at 102.4 F orally, had nausea with vomiting and new left sided flank pain. EMS was called and brought her into the ED. Upon arrival, the patient was given IV fluids. Labs showed an elevated WBC count of 11.3, H/H of 10.8/33.7, RDW 16.4, neut # 9.8, sodium 133, potassium 3.3, GFR 52, glucose 143, AST 51, alk phos 129, with no other lab abnormalities. A urine sample showed infection with urine protein greater than 300, trace leukocytes, urine WBC 6-10, and many bacteria. A culture is pending. Vital signs showed an elevated temp of 38.9 C, heart rate 107, B/P 144/71, RR 14, and 94% oxygen saturation on room air. Imaging of her chest shows no acute cardiopulmonary abnormalities, progression of her T12 compression fracture since her prior CT in September 2018. Her caregiver, [facility] senior contracts administrator, Stacia was with the patient and confirmed the course of events leading to this admission. On my exam, the patient is a poor historian, and will not answer questions. She will be admitted to inpatient for treatment of pyelonephritis given her diarrhea, nausea, vomiting, worsening confusion, left flank pain, lethargy and fevers to be treated with IV antibiotics. - HOSPITAL COURSE Hospital Course: pt was admitted for fever and AMS. pt was found to have UTI, later pt was found to have bacteremia with Ecoli in blood culture on one tube. after treatment with antibiotics, pt's AMS was resolved and pt returned to her baseline. pt was d/c with antibiotics for finishing her treatment course for bacteremia and UTI. The detail hospital course is as the below sepsis resolved. pt present fever, elevated WBC, tachycardia and UTI at the admission. E coli bacteremia pt was found to have Ecoli bacteremia in one tube blood culture. pt was found to have fever at the admission. pt is prescribed Ceftin for d/c to home. UTI pt was found Ecoli in UA culture. pt is prescribed Ceftin for d/c to home Weakness improved. PT/OT recommend to previous residence [facility] Acute encephalopathy resolved Hypertension stable Dementia stable Poor appetite improved T12 compression fracture stable - ALLERGIES Allergies/Adverse Reactions: Allergies Allergy/AdvReac Type Severity Reaction Status Date / Time No Known Drug Allergies Allergy Verified 06/05/19 13:12 - MEDICATIONS Home Medications: Ambulatory Orders Medication Instructions Recorded Confirmed Alendronate [Fosamax] 70 mg PO MO 09/26/18 06/05/19 Aspirin 81 mg PO DAILY 09/26/18 06/05/19 Cholecalciferol (Vitamin D3) 2,000 unit PO DAILY 09/26/18 06/05/19 [Vitamin D3] Estrogens, Conjugated [Premarin] 0.625 mg PO DAILY 09/26/18 06/05/19 Niacin [Niacin ER] 500 mg PO DAILY 09/26/18 06/05/19 [place]-3 Fatty Acids/Fish Oil 1,000 mg PO DAILY 09/26/18 06/05/19 [[place]-3 Fish Oil 1,000 mg Sfgl] Rivastigmine [Exelon 4.6MG] 1 patch TD DAILY 09/26/18 06/05/19 atenoloL [Atenolol] 50 mg PO DAILY 09/26/18 06/05/19 Atorvastatin [Lipitor] 40 mg PO QPM #30 tablet 10/01/18 06/05/19 Lactobacillus Rhamnosus GG 1 cap PO DAILY #6 capsule 10/01/18 06/05/19 [Culturelle] Multivitamin [Theragran] 1 tab PO DAILYWM #30 tablet 10/01/18 06/05/19 Ferrous Sulfate 325 mg PO TIDWM 06/05/19 06/05/19 Magnesium Oxide [Mag-Oxide] 600 mg PO DAILY 06/05/19 06/05/19 Mirtazapine 7.5 mg PO DAILY 06/05/19 06/05/19 Saccharomyces Boulardii [Florastor] 250 mg PO DAILY #10 capsule 06/08/19 cefUROXime axetiL [Ceftin] 500 mg PO Q12H #40 tablet 06/08/19 - PHYSICAL EXAM AT DISCHARGE General Appearance: positive: No acute distress, Alert. negative: Lethargic Eyes Bilateral: positive: Normal inspection, PERRL, EOMI, No lid inflammation ENT: positive: ENT inspection nml, Pharynx nml, No signs of dehydration. negative: Purulent nasal drainage Neck: positive: Nml inspection, Thyroid nml, No JVD, Trachea midline. negative: Thyromegaly, Lymphadenopathy (R), Lymphadenopathy (L), Stiff neck, Tracheal deviation Respiratory: positive: Chest non-tender, No respiratory distress, Breath sounds nml. negative: Wheezes, Rales, Rhonchi Cardiovascular: positive: Regular rate & rhythm, No murmur, No gallop. negative: Irregularly irregular, Extrasystoles, Tachycardia, Bradycardia, JVD pr esent, Systolic murmur, Diastolic murmur Peripheral Pulses: positive: 2+ Abdomen: positive: Non-tender, No organomegaly, Nml bowel sounds, No distention. negative: Tenderness, Guarding, Rebound Back: positive: Nml inspection. negative: CVA tenderness (R), CVA tenderness (L) Skin: positive: Color nml, No rash, Warm, Dry. negative: Cyanosis, Diaphoresis, Pallor, Skin rash Extremities: positive: Non-tender, Full ROM, Nml appearance. negative: Calf tenderness, Didier's sign/cords Neurologic/Psychiatric: positive: Motor nml, Sensation nml, Mood/affect nml. negative: Weakness, Sensory loss, Facial droop, Slurred/abnml speech, Depressed mood/affect - LABS Result Diagrams: 06/08/19 04:20 06/08/19 04:20 - SEPSIS Possible source of Sepsis: Genitourinary Sepsis Criteria: Recorded Temperature greater than 38.3C or Less than 36C, CHART COMPUTER: altered consciousness (unrelated to primary neuro pathology) - FOLLOW UP Follow Up: pt may followup her PCP in one week, continue antibiotics treatment course for her UTI and bacteremia. - TIME SPENT Time Spent in Discharge (Minutes): 40
== END 2019-06-08 12:30 | disposition home or self-care (01) | DRG 871 ==
LOC: EDUNIT# → ED 13:06 → MS2 16:36
PROVIDERS: ADMIT Nurse Practitioner; ATTEND Nurse Practitioner Gerontology
DX: N30.00 Acute cystitis without hematuria (principal); A41.51 Sepsis due to Escherichia coli [E. coli]; F03.90 Unspecified dementia, unspecified severity, without behavioral disturbance, psychotic disturbance, mood disturbance, and anxiety; G93.41 Metabolic encephalopathy; N39.0 Urinary tract infection, site not specified; M48.54XA Collapsed vertebra, not elsewhere classified, thoracic region, initial encounter for fracture; R65.20 Severe sepsis without septic shock; R32 Unspecified urinary incontinence; R63.0 Anorexia; G30.9 Alzheimer's disease, unspecified; F02.80 Dementia in other diseases classified elsewhere, unspecified severity, without behavioral disturbance, psychotic disturbance, mood disturbance, and anxiety; I10 Essential (primary) hypertension; K21.9 Gastro-esophageal reflux disease without esophagitis; F32.9 Major depressive disorder, single episode, unspecified; E78.00 Pure hypercholesterolemia, unspecified; H91.90 Unspecified hearing loss, unspecified ear; M81.0 Age-related osteoporosis without current pathological fracture; Z66 Do not resuscitate; Z79.899 Other long term (current) drug therapy; Z91.81 History of falling; Z79.82 Long term (current) use of aspirin; Z68.21 Body mass index [BMI] 21.0-21.9, adult
CPT/HCPCS: 36415; 71046; 76770; 80053; 81001; 83605; 83690; 83735; 85025; 87040; 87077; 87086; 87181; 87275; 87276; 97161; A9270; J1650; J2185; 51701; 81003; 96360; 99285